=== PATIENT | female | born 1965 | race Caucasian/White ===

== ENCOUNTER 2019-08-17 21:28 | Observation (INO) | payer OTHER, SELFPAY ==
--- NOTE | ~2019-08-17 | US_ITS ---
EXAMINATION: US carotid duplex BI DATE: 08/18/2019 11:56 INDICATION: Right facial weakness. TECHNIQUE: Grayscale, color Doppler, and pulsed Doppler images of the cervical carotid arteries were obtained. The degree of vessel stenosis is placed in one of the following categories: normal, <50%, 5 0-69%, >=70% but less than near-occlusion, near-occlusion, or total occlusion. Note that percent sten osis relative to normal distal artery lumen diameter is indirectly measured from velocity measurement s as described by Carter, et al. Radiology 2003; 229:340-346. COMPARISON: Thyroid ultrasound 12/01/2017 FINDINGS: In the left thyroid lobe, there is a 2.5 cm mixed solid and cystic, hypoechoic, wider-than- tall nodule with ill-defined margin without echogenic foci (TI-RADS TR3). RIGHT: The right common carotid artery (CCA) peak systolic velocity (PSV) is 104 cm/s. The right internal ca rotid artery (ICA) PSV is 116 cm/s. The right ICA end-diastolic velocity (EDV) is 29 cm/s. The right ICA/CCA PSV ratio is 1.1. Grayscale and color Doppler images yield an estimate of 0% diameter reducti on from plaque in the ICA. There is antegrade flow in the right vertebral artery. LEFT: The left CCA PSV is 130 cm/s. The left ICA PSV is 110 cm/s. The left ICA EDV is 23 cm/s. The left ICA /CCA PSV ratio is 0.8. Grayscale and color Doppler images yield an estimate of 0% diameter reduction from plaque in the ICA. There is antegrade flow in the left vertebral artery. IMPRESSION: 1. Normal internal carotid arteries. 2. 2.5 cm left thyroid nodule, increased from 2.2 cm on 12/01/2017. Ultrasound-guided fine-needle aspi ration is recommended if this has not previously been performed. Reviewed, dictated and finalized at location A. IMPRESSION: 1. Normal internal carotid arteries. 2. 2.5 cm left thyroid nodule, increased from 2.2 cm on 12/01/2017. Ultrasound-g uided fine-needle aspiration is recommended if this has not previously been per formed.
--- NOTE | ~2019-08-17 | CT_ITS ---
EXAMINATION: CT brain wo con EXAM DATE: 08/17/2019 22:55 INDICATION: Right facial TECHNIQUE: Spiral CT of the head was performed without contrast. Axial, coronal and sagittal images were reviewed. The dose-length product (DLP) for this examination was 605.33 mGy-cm. The exposure w as tailored according to patient size, and iterative reconstruction (ASIR) was used as additional dos e reduction technique. There is no prior study for comparison. FINDINGS: There is no acute intraparenchymal hemorrhage. No evidence of intraparenchymal brain mass lesion. No evidence of acute infarction. There is no mass effect or midline shift. The ventricles are normal in size. There are no extra-axial collections. There are no acute calvarial fractures. T he orbits are unremarkable. Soft tissue is unremarkable. The visualized sinuses and mastoid air favio ls are well aerated. IMPRESSION: 1. No acute intracranial findings. Reviewed, dictated and finalized at location A.
--- NOTE | ~2019-08-17 | XR_ITS ---
EXAMINATION: XR chest 2V EXAM DATE: 08/17/2019 23:01 INDICATION: Headache. Asthma. Weakness. TECHNIQUE: Frontal and lateral projections of the chest obtained and reviewed. There is no prior levi dy for comparison. FINDINGS: Multilead pacemaker. Rounded cardiac silhouette within normal size limits. No confluent co nsolidation, pneumothorax or pleural effusion suspected. There are no osseous abnormalities identifie d. IMPRESSION: No acute cardiopulmonary findings. Reviewed, dictated and finalized at location A.
[2019-08-17 21:26] VITALS: BP 136/76; PULSE 107; RESP 12; TEMP 36.4; O2SAT 100
[2019-08-17 21:37] VITALS: PULSE 104
--- NOTE | 2019-08-17 21:42 | ECG_ITS ---
Measurements Intervals [place] Rate: 103 P: 38 [place]: 148 QRS: 55 QRSD: 125 T: -17 QT: 354 QTc: 464 Interpretive Statements ELECTRONIC VENTRICULAR PACEMAKER FREQUENT VENTRICULAR PREMATURE COMPLEXES UNDERLYING ATRIAL FLUTTER/TACHYCARDIA NO FURTHER INTERPRETATION IS POSSIBLE ABNORMAL ECG Electronically Signed On 08-18-2019 7:08:23 CDT by Sam Islas D.O.
[2019-08-17 21:52] LABS: Glucose Point of Care 133 (65-105)
--- NOTE | 2019-08-17 22:05 | ED.NEUROSD ---
HPI - Neuro Symptoms/Deficit General Chief Complaint: Unspecified Stated Complaint: GEN WEAKNESS Time Seen by Provider: 08/17/19 21:51 Source: patient, family (pt's ) and RN notes reviewed Mode of arrival: EMS Limitations: no limitations History of Present Illness HPI Narrative: Pt is a 53 y/o female with a Hx of cardiomyopathy and pacemaker, who presents to the ED via EMS with c/o possible CVA. She notes that she also has a Hx of SVT and two cardiac ablations. According to the pt's , she began having slurred speech, rt sided facial droop, and difficulty using her lt hand around 21:00 this evening. Pt states that these symptoms soon resolved, but notes that she has been intermittently confused ever since. She states that her brain feels foggy. Pt notes that she is currently prescribed ASA, but states that she hasn't taken the medication today. She currently reports anxiety, but denies any changes in vision, changes in hearing, or numbness/tingling. Onset (ago): minute(s) (50) Time: 21:00 Timing confirmed by: spouse Location: speech, right face and left arm On Anticoagulants: Yes Associated symptoms: confusion and other (slurred speech (resolved); rt sided facial droop (resolved); lt hand weakness (resolved); anxiety) Related Data Home Medications Medication Instructions Recorded Confirmed amitriptyline 100 mg PO HS 08/18/19 08/18/19 aspirin 325 mg PO DAILY 08/18/19 08/18/19 candesartan 4 mg PO DAILY 08/18/19 08/18/19 digoxin 125 mcg PO DAILY 08/18/19 08/18/19 dofetilide 125 mcg PO Q12H 08/18/19 08/18/19 furosemide 80 mg PO DAILY 08/18/19 08/18/19 levothyroxine 50 mcg PO DAILY 08/18/19 08/18/19 lorazepam 1 mg PO Q8H PRN 08/18/19 08/18/19 metoprolol tartrate 25 mg PO BID 08/18/19 08/18/19 omeprazole 40 mg PO DAILY 08/18/19 08/18/19 potassium chloride 10 meq PO DAILY 08/18/19 08/18/19 spironolactone 50 mg PO DAILY 08/18/19 08/18/19 tramadol-acetaminophen 1 tablet PO Q4H PRN 08/18/19 08/18/19 zolpidem 5 mg PO HS PRN 08/18/19 08/18/19 Allergies Allergy/AdvReac Type Severity Reaction Status Date / Time Penicillins Allergy Unknown Rash Verified 08/17/19 21:38 Review of Systems Review of Systems: All systems reviewed & are unremarkable except as noted in HPI and below Eyes: Eyes: Denies change in vision ENT: Denies other (change in hearing) Neurologic: Reports Abnormal speech present (slurred speech (resolved)), Reports confusion, Reports focal weakness (lt hand weakness (resolved)), Denies numbness, Denies tingling and Reports other (rt sided facial droop (resolved)) Psychiatric: Psychiatric: Reports anxiety PMFSH Past Medical History Medical History (Updated 08/18/19 @ 05:08 by Lalo Philip MD) Anxiety Hypothyroidism Migraines Pacemaker cardiomyopathy SVT (supraventricular tachycardia) Thyroid nodule Surgical History Surgical History History of cardiac radiofrequency ablation History of thoracic surgery Social History Social History Smoking status: Never smoker Alcohol intake: never Substance use: never Agree to blood products: Yes Exam Narrative: Exam Narrative: GENERAL: Well-appearing, well-nourished, and in no acute distress. HEAD: Normocephalic, atraumatic. EYES: PERRL and EOMI. ENT: Mucous membranes moist. CHEST: Clear to auscultation. No respiratory distress. HEART: Regular rate and rhythm. No murmur heard. Normal peripheral pulses. ABDOMEN: Soft, nontender, nondistended. EXTREMITIES: Normal range of motion. No edema. SKIN: Warm, dry, no rash. NEURO: No focal deficits. See NIHSS Alert and oriented x3. PSYCH: Normal mood and affect. Course Consultations Consultation #1: Discussed case with pt's cardiac hospital administrator, Dr. Alexander. Says not to change medications. He will follow-up as outpatient in regards to the arrhythmia noted on the pacemaker. Having her e
[2019-08-17 22:32] VITALS: BP 117/83; PULSE 99; RESP 12; O2SAT 98
[2019-08-17] MEDS: LORAZEPAM INJ 2 MG/ML VIAL 1 MG IV PUSH (22:36)
[2019-08-17 22:51] LABS: Basophils Absolute Auto 0.1 K/mm3 (0.0-0.1); Basophils Percent Auto 0.7 % (0.2-1.2); Eosinophils Absolute Auto 0.2 K/mm3 (0-0.3); Hematocrit 37.9 % (37.0-47.0); Hemoglobin 12.4 g/dL (12.0-15.0); Immature Granulocyte Absolute 0.03 K/mm3 (0.00-0.031); Immature Granulocyte Percent A 0.4 % (0-0.5); Lymphocytes Absolute Auto 1.47 K/mm3 (0.9-3.2); Lymphocytes Percent Auto 18.1 % (18.3-44.2); Mean Corpuscular HGB Conc 32.7 g/dl (32-36); Mean Corpuscular Hemoglobin 30.2 pg (26-34); Mean Corpuscular Volume 92.4 fl (80-100); Mean Platelet Volume 11.1 fl (7.4-10.4); Monocytes Absolute Auto 0.5 K/mm3 (0.1-0.6); Monocytes Percent Auto 6.2 % (2.6-8.5); Neutrophils Absolute Auto 5.9 K/mm3 (1.3-6.7); Neutrophils Percent Auto 72.6 % (45.5-73.1); Platelet Count Result 226 k/mm3 (150-375); Red Cell Distribution Width 12.7 % (11.5-14.5); White Blood Count 8.1 K/mm3 (4.5-10.0)
[2019-08-17 22:52] LABS: Add Urine Microscopic? NO; Appearance Urine Clear (Clear); Bilirubin Urine Negative (Negative); Blood Urine Negative (Negative); Color Urine Straw (Yellow); Glucose Urine UA Negative (Negative); Ketones Urine Negative (Negative); Leukocyte Esterase Ur Negative LEU/UL (Negative); Nitrate Urine Negative (Negative); Protein Urine Negative (Negative); Specific Grav Ur 1.009 (1.001-1.035); Urobilinogen Urine Negative mg/dL (<2.0)
[2019-08-17 22:58] LABS: INR 0.9; Prothrombin Time 12.2 Seconds (11.1-14.7)
[2019-08-17 22:59] LABS: Partial Thromboplastin Time 25.9 SECONDS (22.3-36.8)
--- NOTE | 2019-08-17 23:00 | PC.NURSE ---
interrogated pt's pacemaker
[2019-08-17 23:01] LABS: Blood Urea Nitrogen 17 mg/dL (7-17); Calcium 9.6 mg/dL (8.4-10.2); Carbon Dioxide 26 mmol/L (22-30); Chloride 104 mmol/L (98-107); Estimated Glomerular Filt Rate > 60; Glucose 105 mg/dL (65-105); Potassium 3.9 mmol/L (3.4-5.0); Sodium 138 mmol/L (137-145)
[2019-08-17 23:11] LABS: Troponin I < 0.012 ng/mL (0.000-0.034)
[2019-08-18] VITALS (16 sets, daily range): BP systolic 96–122; BP diastolic 45–85; PULSE 76–90; RESP 12–20; TEMP 36.6–36.8; O2SAT 97–100; BMI 35.9
--- NOTE | 2019-08-18 00:27 | PC.NURSE ---
called [facility] at [phone] in regards to interrogation
--- NOTE | 2019-08-18 00:31 | PC.NURSE ---
evelin is to call back in ten minutes if she does not receive a partial signal from interrogator
--- NOTE | 2019-08-18 00:43 | PC.NURSE ---
pacemaker interrogation transmitted
--- NOTE | 2019-08-18 00:45 | PC.NURSE ---
Tyrel called to confirm transmission of interrogation
--- NOTE | 2019-08-18 00:49 | PC.NURSE ---
to receive a fax in half an hour
--- NOTE | 2019-08-18 03:10 | ADMGEN ---
This patient, Sophy Salazar, was admitted to IMU Room 212-01. Patient/family oriented to hospital policies and general routines including ID bracelet, bed and alarms, visiting hours, pain management, procedures, bathroom and other care routines, personal items, smoking policy, room service/diet, and visiting hours. Valuables list has been completed. Information on how to activate the Rapid Response Team has been discussed. Patient/Family are encouraged to report perceived risks to care and to ask questions if they do not understand what they are told or what they should do.
[2019-08-18] MEDS: ACETAMINOPHEN 325 MG TABLET 650 MG PO ×2 (03:39→09:10)
[2019-08-18] MEDS: CANDESARTAN CILEXETIL 4 MG TABLET PO (09:01)
[2019-08-18] MEDS: ASPIRIN 325 MG TABLET PO (09:01)
[2019-08-18] MEDS: LEVOTHYROXINE SODIUM 50 MCG TABLET PO (09:01)
[2019-08-18] MEDS: METOPROLOL TARTRATE 25 MG TABLET PO (09:02)
[2019-08-18] MEDS: DIGOXIN TAB 125 MCG TABLET PO (09:02)
--- NOTE | 2019-08-18 09:50 | PM.IMHP ---
H&P: HPI History of Present Illness Chief complaint: svt stroke like sympoms Narrative: Date and Time of Service of History & Physical: August 18, 2019 at 9:25 a.m.. Date and Time of Placement in Observation Order: August 18, 2019 at 2:13 a.m.. Chief Complaint: Confusion, slurred speech, right facial droop. History of Present Illness: Sophy Salazar is a 53 year old female with known history of cardiomyopathy with most recent ejection fraction 20% with pacemaker/defibrillator placement, migraine headaches, history of SVT status post ablation, hypothyroidism and anxiety presented to the emergency room by EMS yesterday with an episode of confusion, slurred speech and right facial droop. Patient reports she does not recall all the events but was told of them by her and daughter. Patient does report remembering feeling ?weird? and placing her right hand over her head. She does note having a right-sided migraine type headache yesterday with pressure behind her eyes. She does have a history of migraine headaches which tend to be more on the left. subsequently noticed she appeared confused. She thought she was speaking clearly but reports speech was slurred and he noticed a right facial droop. Patient believes symptoms lasted approximately 10 minutes and total were resolving by the time EMS arrived. Patient does now still have vision that is ?not quite sharp? and some left foot tingling but does have history of tingling with migraine headaches. On evaluation in emergency room, CT brain was negative. No other acute findings. I emergency room physician did speak with her dispatcher motor vehicle regarding arrhythmia noted on pacemaker with recommendation for no change in cardiac medications. Primary physician did request placement in observation for neurologic evaluation. Neurology consulted from the emergency room. Patient does report no significant issues with swallowing or speech this morning. Review of Systems Review of Systems: All systems reviewed & are unremarkable except as noted in HPI and below Constitutional: Constitutional: Denies chills and Denies fever(s) Eyes: Eyes: Denies blurry vision and Denies diplopia ENT: Reports Normal hearing present, Denies dysphagia, Denies nasal congestion and Denies nasal discharge Cardiovascular: Cardiovascular: Denies chest pain and Denies palpitations Respiratory: Respiratory: Denies cough and Denies dyspnea Gastrointestinal: Gastrointestinal: Denies abdominal pain, Denies nausea and Denies vomiting Genitourinary: Genitourinary: Reports no additional female genitourinary complaints Musculoskeletal: Musculoskeletal: Reports no additional musculoskeletal complaints Integumentary/Breasts: Skin/Breast: Denies rash Neurologic: Denies Abnormal speech present, Denies abnormal gait, Denies vertigo, Reports headache(s) and Reports numbness (Tingling left foot) Psychiatric: Psychiatric: Denies anxiety, Denies confusion and Denies depression Endocrine: Endocrine: Reports no additional endocrine complaints Hematologic/Lymphatic: Hematologic/Lymphatic: Reports no additional hematologic/lymphatic complaints Allergic/Immunologic: Allergic/Immunologic: Reports no additional allergic/immunologic complaints [facility] Past Medical History Medical History (Updated 08/18/19 @ 10:09 by Elda Garcia MD) Anxiety Hypothyroidism Migraines Pacemaker cardiomyopathy SVT (supraventricular tachycardia) Thyroid nodule Surgical History Surgical History History of cardiac radiofrequency ablation History of thoracic surgery History of tonsillectomy Family History Family History Father Hypertension Cancer Heart disease Mother Hypertension Cancer Sibling Hypertension Social History Social History (Reviewed 08/18/19 @ 10:03 by Elda Retana
--- NOTE | 2019-08-18 10:21 | PHAR ---
Addendum entered by Jazmine Nava [facility] 08/18/19 10:23: DOSE IS 125 MCG (0.125MG) 1 CAPSULE Q12H Original Note: 08/18/19 HOME MED VERIFIED DOFETILIDE 125 MG CAPSULE 1 Q12H
--- NOTE | 2019-08-18 12:20 | CONS_ITS ---
DATE OF CONSULTATION: HISTORY: This 53 years old right-handed female has been admitted to [facility] through the emergency room with a complaint of generalized weakness with slurred speech, right-sided facial droop, difficulties in using her left hand around 2100 in the evening, but with subsequent resolution of all the symptomatology though she had been intermittently confused ever since and brain has been feeling foggy. She does have ongoing history of anxiety in addition to a history of cardiomyopathy with pacemaker in and she obviously cannot have the MRI. MEDICATIONS: At the time of visit to the emergency room, she is taking multiple medications, which particularly involved 1. Amitriptyline 100 mg at night. 2. Aspirin 325 mg daily. 3. Candesartan 4 mg daily. 4. Digoxin 125 mcg daily. 5. Dofetilide 125 mcg daily. 6. Furosemide 80 mg daily. 7. Levothyroxine 50 mcg daily. 8. Lorazepam 1 mg q.8 hours p.r.n. 9. Metoprolol 25 mg twice a day. 10. Omeprazole 40 mg daily. 11. Potassium chloride 10 mEq daily. 12. Spironolactone 50 mg daily. 13. Tramadol 1 tab q.4 hours p.r.n. 14. Zolpidem 5 mg at bedtime p.r.n. ALLERGIES: SHE IS REPORTEDLY ALLERGIC TO PENICILLIN. PAST MEDICAL HISTORY: In addition, in the past, she has been diagnosed to have the ongoing history of 1. Anxiety. 2. Hypothyroidism. 3. Migraine. 4. cardiomyopathy with supraventricular tachycardia. 5. Thyroid nodule. PAST SURGICAL HISTORY: She has undergone cardio-radiofrequency ablation and thoracic surgery as well. PHYSICAL EXAMINATION: GENERAL: Today, she is awake, alert, and cooperative, in no obvious acute distress, but does have a low volume of the voice. The speech is not dysphasic, not dysarthric, and not dystonic. HEENT: Head normocephalic with no cranial bruit. Ear, nose, throat examination normal. NECK: Supple with no cervical bruit. No thyromegaly or lymphadenopathy. HEART: Regular. LUNGS: Clear. ABDOMEN: Soft. NEUROLOGICAL: She has normal mental status. Normal speech. Pupils round and regular. [place] of vision full. Extraocular movements full. Face symmetrical. Tongue midline. Motor examination revealed her to have no drift of 1 side or other side. Tone normal. Reflexes sluggish, but symmetrical. Plantars downgoing. There is no evidence of gross sensory or cerebellar deficit. LABORATORY DATA: Evaluation up until now included normal CBC, normal BMP. Negative CT scan of the head and as mentioned before MRI cannot be done. Considering her normal neurological examination, one can consider the possibility of TIA versus the invisibility of the stroke with a CT scan, I advised her that she can always be discharged at this particular time by predicting we can repeat the CT scan of the head in 5 to 7 days just to document whether she has had any small stroke or not. In the meantime, she can continue the medication as such, which particularly involved the aspirin 325 mg daily. We can always obtain the Doppler study of the carotid. Thank you very much for asking me to evaluate this patient. ANNA OZUNA M.D. ESTHETICIAN PERMANENT MAKEUP ARTIST ESTHETICIAN PERMANENT MAKEUP ARTIST D I MT: Jaleel
--- NOTE | 2019-08-18 18:55 | PM.DS ---
DS: Diagnosis Admitting Diagnosis Admitting Diagnosis: Unspecified symptoms and signs involving the nervous system Discharge Diagnosis (1) Stroke-like symptom: Code(s): R29.90 - Unspecified symptoms and signs involving the nervous system Status: Acute (2) Migraines: Qualifiers: Migraine type: unspecified Status migrainosus presence: without status migrainosus Intractability: not intractable Qualified Code(s): G43.909 - Migraine, unspecified, not intractable, without status migrainosus Code(s): G43.909 - Migraine, unspecified, not intractable, without status migrainosus Status: Acute (3) SVT (supraventricular tachycardia): Code(s): I47.1 - Supraventricular tachycardia Status: Acute (4) cardiomyopathy: Code(s): 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 History of Present Illness: Patient is a 53 year old female with known history of cardiomyopathy with most recent ejection fraction 20% with pacemaker/defibrillator placement, migraine headaches, history of SVT status post ablation, hypothyroidism and anxiety presented to the emergency room by EMS yesterday with an episode of confusion, slurred speech and right facial droop. Patient reports she does not recall all the events but was told of them by her and daughter. Patient does report remembering feeling ?weird? and placing her right hand over her head. She does note having a right-sided migraine type headache yesterday with pressure behind her eyes. She has a history of migraine headaches which tend to be more on the left. subsequently noticed she appeared confused with slurred speech and right facial droop. Patient believes symptoms lasted approximately 10 minutes in total and were resolving by the time EMS arrived. Patient does now still have vision that is ?not quite sharp? and some left foot tingling but does have history of tingling with migraine headaches. On evaluation in emergency room, CT brain was negative. No other acute findings. The emergency room physician did speak with her barrel ribs solderer regarding arrhythmia noted on pacemaker with recommendation for no change in cardiac medications. Primary physician did request placement in observation for neurologic evaluation. Neurology consulted from the emergency room. Course in Hospital: Patient was admitted to the intermediate care unit where she remained for the duration of her stay. Initial stroke-like symptoms did resolve by the time of admitting history and physical. Patient was tired but had no facial droop or slurred speech. She had no difficulty swallowing. She was seen in consultation by Neurology with consideration of TIA versus CVA as well as anxiety adding to her symptoms. She did have carotid Dopplers done with no significant internal carotid artery stenosis. MRI brain was not done patient having known pacemaker/defibrillator in place. Discussion was held with patient regarding repeat outpatient CT scan of the brain in 5-7 days for further evaluation. She was monitored throughout the day with no new neurological symptoms. She was also monitored on telemetry with heart rate remaining controlled. Interrogation of her pacemaker in the emergency room did show an episode of SVT for which her barrel ribs solderer was already notified while still in the emergency room. No significant irregular rhythms were noted while on telemetry. She was
== END 2019-08-18 17:25 | disposition home or self-care (01) ==
LOC: ANHED 21:56 → ANHIMU 08-18 03:03
PROVIDERS: Admitting Provider Internal Medicine; Emergency Provider Emergency Medicine; PCP Nurse Practitioner Family; Visit Provider Hospitalist
DX: R29.818 Other symptoms and signs involving the nervous system (principal); R29.810 Facial weakness; R41.0 Disorientation, unspecified; R47.81 Slurred speech; R53.1 Weakness; G43.909 Migraine, unspecified, not intractable, without status migrainosus; I47.1 Supraventricular tachycardia; I42.8 Other cardiomyopathies; O94 Sequelae of complication of pregnancy, childbirth, and the puerperium; E03.9 Hypothyroidism, unspecified; E04.1 Nontoxic single thyroid nodule; F41.9 Anxiety disorder, unspecified; Z79.82 Long term (current) use of aspirin; Z79.899 Other long term (current) drug therapy; Z88.0 Allergy status to penicillin; Z95.810 Presence of automatic (implantable) cardiac defibrillator
CPT/HCPCS: 36415; 70450; 71046; 80048; 81003; 82948; 84484; 85025; 85610; 85730; 93005; 93880; 96374; 99285; A9270; G0378; J2060

== ENCOUNTER 2019-08-24 15:14 | Outpatient (CLI) | payer OTHER, SELFPAY ==
--- NOTE | ~2019-08-24 | CT_ITS ---
EXAMINATION: CT brain wo/w con DATE: 08/24/2019 16:12 INDICATION: Stroke-like symptoms. Right facial and left sided weakness TECHNIQUE: Computed tomography (CT) of the head was performed without intravenous contrast. The mA wa s adjusted according to patient size. Iterative reconstruction technique was employed. Exam dose: 10 59.33 mGy-cm total exam DLP. COMPARISON: 08/17/[address] brain FINDINGS: No intracranial mass lesion or hemorrhage or cerebrovascular accident. Probable arachnoid cyst in the anterior left middle cranial fossa, stable since 08/17/2019. No midline shift or mass effect. Mild carotid siphon internal carotid artery calcification No subdural or epidural hematoma. Normal ventricular size. No fracture or bone destruction of the cranial vault. Included paranasal sinuses and mastoid air cells are normally developed and aerated. IMPRESSION: No acute intracranial finding or significant change since 08/17/2019 Reviewed, dictated and finalized at Location [facility]. Reviewed, dictated and finalized at location B.
== END 2019-08-24 15:15 | disposition home or self-care (01) ==
PROVIDERS: PCP Nurse Practitioner Family; Visit Provider Nurse Practitioner Family
DX: R29.90 Unspecified symptoms and signs involving the nervous system (principal)
CPT/HCPCS: 70470; Q9967

== ENCOUNTER 2020-05-11 08:41 | Outpatient (NON) | payer OTHER, SELFPAY ==
[2020-05-11 23:24] LABS: SARS-CoV-2 RNA PCR Negative
== END 2020-05-11 08:42 ==
LOC: ANHCOVIDDT 08:43
PROVIDERS: PCP Nurse Practitioner Family; Visit Provider Nurse Practitioner Family
DX: Z20.828 Contact with and (suspected) exposure to other viral communicable diseases (principal); R09.81 Nasal congestion; R52 Pain, unspecified
CPT/HCPCS: 87635; C9803; U0003

== ENCOUNTER 2020-11-28 13:07 | Outpatient (CLI) | payer OTHER, SELFPAY ==
--- NOTE | ~2020-11-28 | CT_ITS ---
EXAMINATION: CT lumbar spine wo con DATE: 11/28/2020 13:40 INDICATION: Peripheral polyneuropathy. TECHNIQUE: Computed tomography (CT) of the lumbar spine was performed without intravenous contrast. A utomated exposure control and iterative reconstruction technique were employed. The dose-length produ ct was 1138.38 mGy-cm. COMPARISON: None FINDINGS: There is 7 degrees dextrocurvature of lumbar spine. Vertebral body heights are normal. Inte rvertebral disc heights are normal. The following disc levels are specifically discussed: L1-L2: The disc does not extend beyond the endplate margin. There is mild bilateral facet joint osteo arthritis. There is no neural foraminal stenosis. There is no central canal stenosis. L2-L3: The disc is mildly bulging. There is mild bilateral facet joint osteoarthritis. There is mild left neural foraminal stenosis. There is no central canal stenosis. L3-L4: The disc is bulging. There is severe right and mild left facet joint osteoarthritis. There is mild bilateral neural foraminal stenosis. There is mild central canal stenosis. L4-L5: The disc is bulging. There is mild bilateral facet joint osteoarthritis. There is mild bilater al neural foraminal stenosis. There is no central canal stenosis. L5-S1: The disc does not extend beyond the endplate margin. There is moderate right and severe left f acet joint osteoarthritis. There is no neural foraminal stenosis. There is no central canal stenosis. IMPRESSION: 1. Mild lumbar spondylosis. Reviewed, dictated and finalized at location A. IMPRESSION: 1. Mild lumbar spondylosis.
== END 2020-11-28 13:08 | disposition home or self-care (01) ==
PROVIDERS: PCP Nurse Practitioner Family; Visit Provider Nurse Practitioner Family
DX: G62.9 Polyneuropathy, unspecified (principal); M51.36 Other intervertebral disc degeneration, lumbar region; M54.42 Lumbago with sciatica, left side; G89.29 Other chronic pain; M47.816 Spondylosis without myelopathy or radiculopathy, lumbar region
CPT/HCPCS: 72131

== ENCOUNTER 2021-10-31 17:43 | Outpatient (CLI) | payer OTHER, SELFPAY ==
--- NOTE | ~2021-10-31 | CT_ITS ---
EXAMINATION: CT abdomen pelvis wo con DATE: 10/31/2021 18:01 INDICATION: pelvic and perineal pain TECHNIQUE: Computed tomography (CT) of the abdomen and pelvis was performed without intravenous contr ast. Automated exposure control and iterative reconstruction technique were employed. The dose-length product was 855.35 mGy-cm. COMPARISON: None FINDINGS: Lower thorax: Bibasilar scar/atelectasis. Incompletely visualized pacemaker leads. Liver: Normal. Biliary/Gallbladder: Gallbladder is normal. No bile duct dilation. Pancreas: No mass or duct dilation. Spleen: Normal. Adrenals:Right adrenal myelolipoma. Kidneys: Irregular somewhat hypodense area in the left midpole. Left lower pole subcentimeter lesion too small to characterize but likely represents a cyst. Multiple simple renal cysts. No renal calcifi cation or hydronephrosis. No significant perinephric stranding. GI tract: No small or large bowel dilation. Normal appendix. Mesentery/Peritoneum: No ascites, mass, or free air. Retroperitoneum: No mass. Pelvis: Pelvic organs are within normal limits. Soft Tissues: Soft tissues and body wall unremarkable. Bones: No acute osseous finding. IMPRESSION: Indeterminate left midpole lesion, may represent an indeterminate mass, renal infarction, or focus of infection. Recommend renal mass protocol MRI or CT with and without contrast for further evaluation. Reviewed, dictated and finalized at location K. IMPRESSION: Indeterminate left midpole lesion, may represent an indeterminate mass, renal i nfarction, or focus of infection. Recommend renal mass protocol MRI or CT with and without contrast for further evaluation.
== END 2021-10-31 17:44 | disposition home or self-care (01) ==
PROVIDERS: PCP Nurse Practitioner Family
DX: R10.2 Pelvic and perineal pain (principal); D17.5 Benign lipomatous neoplasm of intra-abdominal organs
CPT/HCPCS: 74176

== ENCOUNTER → 2021-11-01 14:39 | Outpatient (CLI) | payer OTHER, SELFPAY ==
--- NOTE | ~2021-11-01 | MM_ITS ---
EXAMINATION: MM screening nury BI w elizabeth HISTORY: Screening mammogram TECHNIQUE: Craniocaudal and mediolateral oblique 3-D tomosynthesis images were obtained and synthetic 2-D images were generated. CAD analysis was submitted and interpreted. COMPARISON: 08/26/2018, 03/07/2017 bilateral screening mammogram examinations BREAST PARENCHYMAL COMPOSITION: There are scattered areas of fibroglandular density. FINDINGS: There is no evidence of suspicious mass, calcification, or architectural distortion to sugg est malignancy in either breast. There has been no suspicious interval change. IMPRESSION: 1. No mammographic evidence of malignancy. 2. Recommend routine screening mammography in one year. BI-RADS Category 1: Negative Reviewed, dictated and finalized at location A.
== END ==
PROVIDERS: PCP Nurse Practitioner Family; Visit Provider Obstetrics & Gynecology
DX: Z12.31 Encounter for screening mammogram for malignant neoplasm of breast (principal)
CPT/HCPCS: 77063; 77067

== ENCOUNTER 2021-11-09 09:42 | Outpatient (CLI) | payer OTHER, SELFPAY ==
[2021-11-09 10:16] LABS: Anion Gap 8 mmol/L (8-16); Blood Urea Nitrogen 17 mg/dL (7-17); Calcium 9.4 mg/dL (8.4-10.2); Carbon Dioxide 28 mmol/L (22-30); Chloride 102 mmol/L (98-107); Estimated Glomerular Filt Rate 52; Glucose 148 mg/dL (65-110); Potassium 3.9 mmol/L (3.4-5.0); Sodium 138 mmol/L (137-145)
[2021-11-09 10:57] LABS: Digoxin 0.7 ng/mL (0.8-2.0)
== END 2021-11-09 09:43 | disposition home or self-care (01) ==
LOC: ANHSURGERY 09:47
PROVIDERS: Anesthesiology; PCP Nurse Practitioner Family; Visit Provider Obstetrics & Gynecology
DX: Z01.818 Encounter for other preprocedural examination (principal); T50.2X5A Adverse effect of carbonic-anhydrase inhibitors, benzothiadiazides and other diuretics, initial encounter; I42.9 Cardiomyopathy, unspecified
CPT/HCPCS: 36415; 80048; 80162

== ENCOUNTER 2021-11-14 01:03 | Day surgery (SDC) | payer OTHER, SELFPAY ==
--- NOTE | 2021-11-06 14:19 | SUR.PREOP ---
Report to the Outpatient Waiting Room, entrance under the green pavilion located off [facility], at time 1230 on date 11/14/2021. OR Time: 1430. - You and your visitor will be asked a series of questions to screen for COVID 19 for your protection. - Only one visitor is allowed at this time. - The patient visitor is requested to leave or wait in car when not with patient. - A mask is required within the hospital. Patients may have clear liquids (water, carbonated beverages, clear teas, apple juice) until 3 hours prior to surgery with a maximum of 20 ounces. - NO CLEAR LIQUIDS AFTER 1130 - No food from midnight until time of surgery - Infants may have breast milk until 4 hours before surgery, infant formula 6 hours prior to surgery. - Children will be allowed to drink immediately following surgery. If applicable, please bring a bottle or sippy cup to assist with drinking. Juice, water, soda, and popsicles are readily available. For infants on formula, please bring formula the day of surgery. Pacifiers are allowed. Take the following medications with a SIP of water the morning of surgery: DIGOXIN, DOFETILIDE, LEVOTHYROXINE, LORAZEPAM, TRAMADOL/ACETAMINOPHEN, BRING XOPENEX INHALER WITH YOU DAY OF SURGERY Medications to discontinue per physician SPEAK WITH DR STRONG IN REGARDS TO CONTINUING ASPIRIN Please no make-up, nail upper sorbian, hairspray, perfume, deodorant, or body powder the day of surgery. No jewelry (including any body piercings) or valuables the day of surgery, leave them at home. Please take a shower or bath the night before, or the morning of, surgery with an antibacterial soap. Wear comfortable, loose fitting clothing. Children are encouraged to wear pajamas. - Jewelry must be removed prior to entering the operating room. Rings and piercings that are not removed may be cut off. - The hospital will not accept responsibility for valuables. - Please leave all valuables, including medications, at home the day of surgery. If you are going home after surgery, a licensed pharmacy delivery driver must drive you home. - NO public transportation without another adult. - We recommend that an adult stay with you for 24 hours following discharge. - We also recommend that you do not drive, make important decision, drink alcoholic beverages, or take any drugs that were not prescribed by your health care provider for at least 24 hours after your discharge time. For Pediatric surgeries, we recommend two adults accompany the child home (only one inside the building at this time). Follow any additional instructions given to you from your surgeon. If you or anyone in your household have experienced Covid symptoms in the past week, please notify your surgeon or the nurse liaison at the phone number below for possible testing. Telephone instructions given to SANGEETHA LU and asked if any additional questions and then verbalized understanding. Patient advised to call surgeon office or pre surgery nurse liaison [phone] if any additional questions.
[2021-11-06 14:38] VITALS: BMI 34.8
--- NOTE | 2021-11-14 09:51 | WPDANESEPPF ---
Anes - Initial Pre Proc Eval Procedure: Operation Date: 11/14/21 14:30 Proposed Procedures p Hysteroscopy Dilation and Curettage - Alirio Haile MD Date/Time: 11/14/21 09:51 Surgeon: Alirio Haile MD Pre Op Diagnosis: irregular bleeding, thickened endometrium Patient Data Age: 56 Gender: F Height: 1.57 m Weight: 86.4 kg Allergies Allergy/AdvReac Type Severity Reaction Status Date / Time adhesive Allergy Unknown Redness of Verified 11/06/21 14:36 Skin mushroom Allergy Unknown Hives Verified 11/06/21 14:36 Penicillins Allergy Unknown Rash Verified 11/06/21 14:36 Home Medications Medication Instructions Recorded Confirmed Type amitriptyline 100 mg tablet 100 mg PO HS 08/18/19 11/06/21 History aspirin 325 mg tablet 325 mg PO HS 08/18/19 11/14/21 History digoxin 125 mcg (0.125 mg) tablet 125 mcg PO DAILY 08/18/19 11/14/21 History dofetilide 125 mcg capsule 125 mcg PO Q12H 08/18/19 11/14/21 History furosemide 80 mg tablet 80 mg PO HS 08/18/19 11/06/21 History levothyroxine 50 mcg tablet 50 mcg PO DAILY 08/18/19 11/14/21 History lorazepam 1 mg tablet 1 mg PO Q8H PRN Anxiety 08/18/19 11/06/21 History omeprazole 40 mg capsule,delayed 40 mg PO HS 08/18/19 11/06/21 History release potassium chloride 10 mEq 10 meq PO HS 08/18/19 11/06/21 History tablet,extended release spironolactone 50 mg tablet 50 mg PO HS 08/18/19 11/06/21 History tramadol 37.5 mg-acetaminophen 325 1 tablet PO Q4H PRN Pain 08/18/19 11/06/21 History mg tablet zolpidem 5 mg tablet 5 mg PO HS PRN Sleep 08/18/19 11/06/21 History empagliflozin 10 mg tablet 1 tablet PO DAILY 11/06/21 11/06/21 History (Jardiance) levalbuterol tartrate 45 2 inh inhalation PRN PRN Shortness 11/06/21 11/06/21 History mcg/actuation aerosol inhaler Of Breath metoprolol succinate 50 mg 50 tablet PO HS 11/06/21 11/14/21 History tablet,extended release 24 hr sacubitril 24 mg-valsartan 26 mg 1 tablet PO BID 11/06/21 11/06/21 History tablet (Entresto) ECG: Date of Service: 08/17/19 Procedure(s): CA 12 lead EKG Accession Number(s): [id number] cc: ~ ? Measurements Intervals? [place]? Rate: ? 103? P:? 38 NH: ? 148? QRS:? 55 QRSD: ? 125? T:? -17 QT: ? 354? QTc:? 464? Interpretive Statements ELECTRONIC VENTRICULAR PACEMAKER FREQUENT VENTRICULAR PREMATURE COMPLEXES UNDERLYING ATRIAL FLUTTER/TACHYCARDIA NO FURTHER INTERPRETATION IS POSSIBLE ABNORMAL ECG Electronically Signed On 08-18-2019 7:08:23 CDT by Sam Islas D.O. Patient hx anesthesia problems: none Family hx anesthesia problems: none Results Review: All pre-operative results and documents have been reviewed as part of the pre-operative evaluation. [facility] Past Medical History Medical History (Updated 11/14/21 @ 09:53 by Jos Carrillo MD) Anxiety Asthma Atrial fibrillation Cardiomyopathy CHF (congestive heart failure) Hypothyroidism Migraines Obesity Pacemaker pm/aicd cardiomyopathy SVT (supraventricular tachycardia) Thyroid nodule Surgical History Surgical History History of cardiac radiofrequency ablation History of thoracic surgery History of tonsillectomy Family History Family History Father Hypertension Cancer Heart disease Mother Hypertension Cancer Sibling Hypertension Social History Social History Social History: Patient is . She is a full code. She has never smoked. No alcohol use. 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 Smoking status: Never smoker Sub
[2021-11-14 12:40] VITALS: BMI 36.3
[2021-11-14] MEDS: ACETAMINOPHEN 500 MG TABLET 1000 MG PO (12:52)
[2021-11-14 12:59] VITALS: BP 108/59; PULSE 95; RESP 18; TEMP 36.4; O2SAT 99
[2021-11-14] MEDS: LACTATED RINGERS 1,000 ML 30 ML IV CONT (13:10)
--- NOTE | 2021-11-14 13:34 | PM.IMHP ---
H&P: HPI History of Present Illness Date/Time: 11/14/21 13:34 Chief Complaint: Bleeding Narrative: 55 y/o who had some light vaginal bleeding. Ultrasound exam shows a thickened, irregular endometrial complex. A Pap last fall was negative. Review of Systems Review of Systems: All systems reviewed & are unremarkable except as noted in HPI and below PMFSH Past Medical History Medical History Anxiety Asthma Atrial fibrillation Cardiomyopathy CHF (congestive heart failure) Hypothyroidism Migraines Obesity Pacemaker pm/aicd cardiomyopathy SVT (supraventricular tachycardia) Thyroid nodule Surgical History Surgical History History of cardiac radiofrequency ablation History of thoracic surgery History of tonsillectomy Family History Family History Father Hypertension Cancer Heart disease Mother Hypertension Cancer Sibling Hypertension Social History Social History Social History: Patient is . She is a full code. She has never smoked. No alcohol use. 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 Gender identity (if verbalized by the patient): Female Spiritual care concerns: No Agree to blood products: Yes Meds Home Medications and Allergies Home Medications Medication Instructions Recorded Confirmed Type amitriptyline 100 mg tablet 100 mg PO HS 08/18/19 11/06/21 History aspirin 325 mg tablet 325 mg PO HS 08/18/19 11/14/21 History digoxin 125 mcg (0.125 mg) tablet 125 mcg PO DAILY 08/18/19 11/14/21 History dofetilide 125 mcg capsule 125 mcg PO Q12H 08/18/19 11/14/21 History furosemide 80 mg tablet 80 mg PO HS 08/18/19 11/06/21 History levothyroxine 50 mcg tablet 50 mcg PO DAILY 08/18/19 11/14/21 History lorazepam 1 mg tablet 1 mg PO Q8H PRN Anxiety 08/18/19 11/06/21 History omeprazole 40 mg capsule,delayed 40 mg PO HS 08/18/19 11/06/21 History release potassium chloride 10 mEq 10 meq PO HS 08/18/19 11/06/21 History tablet,extended release spironolactone 50 mg tablet 50 mg PO HS 08/18/19 11/06/21 History tramadol 37.5 mg-acetaminophen 325 1 tablet PO Q4H PRN Pain 08/18/19 11/06/21 History mg tablet zolpidem 5 mg tablet 5 mg PO HS PRN Sleep 08/18/19 11/06/21 History empagliflozin 10 mg tablet 1 tablet PO DAILY 11/06/21 11/06/21 History (Jardiance) levalbuterol tartrate 45 2 inh inhalation PRN PRN Shortness 11/06/21 11/06/21 History mcg/actuation aerosol inhaler Of Breath metoprolol succinate 50 mg 50 tablet PO HS 11/06/21 11/14/21 History tablet,extended release 24 hr sacubitril 24 mg-valsartan 26 mg 1 tablet PO BID 11/06/21 11/06/21 History tablet (Entresto) Allergies Allergy/AdvReac Type Severity Reaction Status Date / Time adhesive Allergy Unknown Redness of Verified 11/06/21 14:36 Skin mushroom Allergy Unknown Hives Verified 11/06/21 14:36 Penicillins Allergy Unknown Rash Verified 11/06/21 14:36 Vital Signs Vital Signs - 24 hr 11/14/21 12:59 Temperature 36.4 C L Pulse Rate 95 Respiratory Rate 18 Blood Pressure 108/59 L Pulse Oximetry 99 Oxygen Delivery Room Air Exam Const: Orientation/consciousness: patient oriented x3 Other: Well-developed, well-nourished female in no acute distress. Neck: Thyroid: thyroid normal Lymphatic: no lymphadenopathy noted (in neck, axilla or inguinal nodes) Resp: Effort & Inspection: normal respiratory effort Auscultation: clear to auscultation bilaterally Cardio: Rate: regular rate Rhythm: regular rhythm Heart sounds: S1 normal heart sound present and S2 normal heart sound present G
--- NOTE | 2021-11-14 13:38 | WPDHPUPDATE1 ---
History and Physical Update Update Date/Time: 11/14/21 13:38 History and Physical has been reviewed, including an updated exam of the patient. There are NO changes in the patient's condition. Risks, benefits, and alternatives have been discussed and questions answered. Patient agrees to proceed with procedure.
--- NOTE | 2021-11-14 14:15 | P.OP_ITS ---
Procedure Note - Detailed Date of Procedure 11/14/21 Pre-op Diagnosis Menometrorrhagia Abnormal pelvic ultrasound Post-op Diagnosis Same Procedure Performed Hysteroscopy Dilation and sharp curettage Endometrial polypectomy Endometrial ablation Surgeon Alirio Haile MD Anesthesia MAC and Local (1% lidocaine) Findings Endometrial polyp Description of Procedure The patient was taken to the operating room where she was prepared and draped in the usual sterile fashion in the dorsal lithotomy position. The bladder was drained with a red rubber catheter. A sterile speculum was placed into the vagina. The anterior lip of the cervix was grasped with single-tooth tenaculum. Ten mL of 1% lidocaine was administered in a paracervical block. The cervix was then gently dilated using Hegar dilators until an 8 mm dilator could be passed. Hysteroscopy was performed using sterile saline as a distention medium. Findings are as noted above. A polyp forceps was advanced and the apparent endometrial polyp was removed. Sharp curettage was then performed, and en dometrial curettings were collected on a Telfa pad and passed off to be sent to pathology. Finally, the the Shilpa device was advanced and endometrial ablation commenced without difficulty. The device was withdrawn and a second look was taken using the hysteroscope. Excellent coverage of the endometrial cavity was noted. The tenaculum was removed. Hemostasis was excellent. Sponge, lap, needle and instrument counts were correct. The patient was awakened and taken to the recovery room in stable condition. I was present and scrubbed through the entire procedure. Drains No Packing No Pathology Yes (Endometrial curettings) Complications None Condition Stable Disposition PACU
[2021-11-14] MEDS: LIDOCAINE HCL 1% PF 30 ML VIAL 10 ML INFILTRATE (14:53)
--- NOTE | 2021-11-14 15:01 | W.PM.PROC2 ---
Procedure Note - Detailed Date of Procedure 11/14/21 Pre-op Diagnosis Postmenopausal vaginal bleeding Abnormal pelvic ultrasound Post-op Diagnosis Same Procedure Performed Hysteroscopy Endometrial polypectomy Dilation and sharp curettage Surgeon Alirio Haile MD Anesthesia MAC and Local (1% lidocaine) Findings Small endometrial polyp. Both tubal ostia seen. Endometrial tissue otherwise atrophic appearing. Description of Procedure The patient was taken to the operating room where she was prepared and draped in the usual sterile fashion in the dorsal lithotomy position. The bladder was drained with a red rubber catheter. A sterile speculum was placed into the vagina. The anterior lip of the cervix was grasped with single-tooth tenaculum. Ten mL of 1% lidocaine was administered in a paracervical block. The cervix was then gently dilated using Hegar dilators until an 8 mm dilator could be passed. Hysteroscopy was performed using sterile saline as a distention medium. Findings are as noted above. A polyp forceps was advanced and the small polyp was removed. Sharp curettage was then performed, and endometrial curettings were collected on a Telfa pad and passed off to be sent to pathology. Hemostasis was excellent. Sponge, lap, needle and instrument counts were correct. The patient was awakened and taken to the recovery room in stable condition. I was present and scrubbed through the entire procedure. Estimated Blood Loss 5 Drains No Packing No Pathology Yes (Endometrial curettings) Complications None Condition Stable Disposition PACU
[2021-11-14 15:06] VITALS: BP 110/67; PULSE 82; RESP 16; O2SAT 92
[2021-11-14 15:35] VITALS: BP 102/59; PULSE 79; RESP 16; O2SAT 95
[2021-11-14] MEDS: oxyCODONE HCL (*CRX) 5 MG TAB IR PO (15:42)
[2021-11-14 16:02] VITALS: BP 92/45; PULSE 75; RESP 16
== END 2021-11-14 16:03 | disposition home or self-care (01) ==
PROVIDERS: PCP Nurse Practitioner Family; Visit Provider Obstetrics & Gynecology
PROC: 0U5B8ZZ Destruction of Endometrium, Via Natural or Artificial Opening Endoscopic (ICD-10-PCS; CPT 58563; principal; 2021-11-14 14:30)
DX: N95.0 Postmenopausal bleeding (principal); N84.0 Polyp of corpus uteri; I48.91 Unspecified atrial fibrillation; I42.9 Cardiomyopathy, unspecified; I50.9 Heart failure, unspecified; E03.9 Hypothyroidism, unspecified; I47.1 Supraventricular tachycardia; Z95.810 Presence of automatic (implantable) cardiac defibrillator; J45.909 Unspecified asthma, uncomplicated; F41.9 Anxiety disorder, unspecified; E04.1 Nontoxic single thyroid nodule; E66.9 Obesity, unspecified; Z68.36 Body mass index [BMI] 36.0-36.9, adult; Z79.82 Long term (current) use of aspirin; Z79.51 Long term (current) use of inhaled steroids; Z79.84 Long term (current) use of oral hypoglycemic drugs
CPT/HCPCS: 58558; 88305; A9270; J2250; J2405; J2704; J3010; J7120

== ENCOUNTER 2022-08-30 16:20 | Outpatient (CLI) | payer OTHER, SELFPAY ==
--- NOTE | ~2022-08-30 | CT_ITS ---
EXAMINATION: CT cervical spine wo con DATE: 08/30/2022 16:52 INDICATION: Peripheral polyneuropathy. TECHNIQUE: Computed tomography (CT) of the cervical spine was performed without intravenous contrast. Automated exposure control and iterative reconstruction technique were employed. The dose-length pro duct was 308.99 mGy-cm. COMPARISON: Thyroid ultrasound 12/01/2017 FINDINGS: There is a 2.4 cm nodule in left thyroid lobe, stable from 12/01/2017, likely benign. There is hypolordosis of cervical spine. Vertebral body heights are normal. There is mildly decreased disc height at C4-C5 and C6-C7. The following disc levels are specifically discussed: C2-C3: There is no uncovertebral joint osteoarthritis. There is mild bilateral facet joint osteoarthr itis. There is no neural foraminal stenosis. There is no central canal stenosis. C3-C4: There is mild right uncovertebral joint osteoarthritis. There is mild bilateral facet joint os teoarthritis. There is no neural foraminal stenosis. There is no central canal stenosis. C4-C5: There is no uncovertebral joint osteoarthritis. There is mild left facet joint osteoarthritis. There is no neural foraminal stenosis. There is mild central canal stenosis. C5-C6: There is no uncovertebral joint osteoarthritis. There is no facet joint osteoarthritis. There is no neural foraminal stenosis. There is no central canal stenosis. C6-C7: There is no uncovertebral joint osteoarthritis. There is moderate bilateral facet joint osteoa rthritis. There is mild left neural foraminal stenosis. There is mild central canal stenosis. C7-T1: There is no uncovertebral joint osteoarthritis. There is mild right and severe left facet join t osteoarthritis. There is mild left neural foraminal stenosis. There is no central canal stenosis. IMPRESSION: 1. Mild cervical spondylosis. Reviewed, dictated and finalized at location A.
== END 2022-08-30 16:21 | disposition home or self-care (01) ==
PROVIDERS: PCP Nurse Practitioner Family; Visit Provider Nurse Practitioner Family
DX: G62.9 Polyneuropathy, unspecified (principal); R20.0 Anesthesia of skin; M54.12 Radiculopathy, cervical region; G89.29 Other chronic pain; M50.30 Other cervical disc degeneration, unspecified cervical region; M43.02 Spondylolysis, cervical region
CPT/HCPCS: 72125

== ENCOUNTER 2024-07-10 15:20 | Emergency (ER) | payer OTHER, SELFPAY ==
--- NOTE | ~2024-07-10 | CT_ITS ---
EXAMINATION: CT abdomen pelvis w con DATE: 07/10/2024 16:26 INDICATION: ABDOMINAL PAIN, POSSIBLE CONSTIPATION TECHNIQUE: Computed tomography (CT) of the abdomen and pelvis was performed with 100 mL Omnipaque-350 intravenous contrast. Automated exposure control and iterative reconstruction technique were employe d. The dose-length product was 761.20 mGy-cm. COMPARISON: 10/31/2021. FINDINGS: Lower thorax: Minimal dependent scar/atelectasis. Pacer/AICD leads terminating in good position. Liver: Normal. Biliary/Gallbladder: Gallbladder is normal. No bile duct dilation. Pancreas: No mass or duct dilation. Spleen: Normal. Adrenals:Right adrenal myelolipoma. Kidneys: No suspicious mass, obstructing stone, or hydronephrosis. 2 small adjacent indeterminate den sity left midpole lesions measuring 1.5 and 2.0 cm Multiple bilateral simple cysts and hypodensities that are too small to characterize but also likely represent cysts. GI tract: Mild distal esophageal and gastric wall edema. No small or large bowel dilation. Normal cecelia endix. Mesentery/Peritoneum: No ascites, mass, or free air. Retroperitoneum: No mass. Pelvis: Pelvic organs are within normal limits. Soft Tissues: Soft tissues and body wall unremarkable. Bones: No acute osseous finding. IMPRESSION: Mild esophagitis/gastritis. Indeterminate left midpole lesions, recommend nonemergent but timely MR without and with contrast for further characterization. Reviewed, dictated and finalized at location K. NG INSPECTOR
[2024-07-10 15:23] VITALS: BP 118/67; PULSE 106; RESP 16; TEMP 36.6; O2SAT 98
--- OUTSIDE RECORDS SUMMARY | 2024-07-10 15:23 | XMS_ITS | Encounter Summary ---
Author Organization [facility] Address [address] [place] [address]. [place], [place] [id number] [place] [address] Care Team Providers Care Inductor Tester Name Role Phone Sandy Hammond Primary Care Provider [phone] Encounter Details Date Type Department Care Team (Late st Contact Info) Description 01/10/2020 [facility] Message Enc [facility] Family & Internal Medicine [place] [id number] [place] [address] Sandy Hammond FNP [address] [place] [address] Medication Questions Social History Tobacco Use Types Packs/Day Years Used Date Smoking Tobacco: Never Smokeless Tobacco: Never Alcohol Use Standard Drinks/Week Comments Yes 0 (1 standard drink = 0.6 oz pur e alcohol) RARELY AUDIT-C Answer Date Recorded Frequency of Alcohol Consumption Monthly or less 09/25/2018 Average Number of Drinks Not on file 019 Frequency of Binge Drinking Not on file 09/07 PHQ-2 Answer Date Recorded PHQ-2 Score 1 09/25/2018 Comments No Sex and Gender Information Value Date Recorded Sex Assigned at Female 12/30/2023 1:13 PM CDT Legal Sex Female 1:59 PM CDT Gender Identity Female 12/30/2023 1:13 PM CDT Sexual Orientation Not on file documented as of this encounter Progress Notes * RANULFO De Anda - 01/10/2020 4:20 PM CDT She does need tested. Mack Can we call her please? documented in this encounter Plan of Treatment Upcoming Encounters Date Type Department Care Team (Late st Contact Info) Description 07/12/2024 1:00 PM ELECTROMECHANICAL ASSEMBLER Laboratory Only [facility] Family & Internal Medicine - [place] [address] [place] [address] Sandy Hammond FNP [address] [place] [address] 08/23/2024 3:00 PM CDT Office Visit [facility] Multispecialty Care - [facility] [address] [facility], [address] [place] [address] Macario Han MD [address] [place] [address] documented as of this encounter Visit Diagnoses Not on filedocumented in this encounter Additional Health Concerns Infection Onset Date Last Indicated Resolved Time COVID-19 Rule Out 01/11/2020 01/20/2020 03/20/2020 12:33 AM CDT COVID-19 Rule Out 05/08/2020 05/11/2020 05/19/2020 3:16 PM ELECTROMECHANICAL ASSEMBLER COVID-19 Rule Out 07/18/2020 07/18/2020 07/20/2020 7:00 AM ELECTROMECHANICAL ASSEMBLER COVID-19 Rule Out 06/07/2021 06/07/2021 06/14/2021 12:32 AM ELECTROMECHANICAL ASSEMBLER COVID-19 Rule Out 12/13/2021 12/13/2021 12/13/2021 4:48 PM CDT COVID-19 Rule Out 12/13/2021 12/13/2021 12/14/2021 4:35 PM CDT COVID-19 Rule Out 06/27/2022 06/27/2022 06/28/2022 1:09 PM ELECTROMECHANICAL ASSEMBLER documented as of this encounter Care Teams Inductor Tester Relationship Specialty Start Date End Date Sandy Hammond FNP [address] [place] [address] PCP - General NURSE PRACTITIONER 11/19/17 documented as of this encounter
--- OUTSIDE RECORDS SUMMARY | 2024-07-10 15:23 | XMS_ITS | Encounter Summary ---
Author Organization [facility] Address [address] [place] [address] Phone Care Team Providers Care Novelty Printing Machine Operator Name Role Phone Sandy Hammond APRN, HOME INSPECTOR Primary Care Provider Jorge Ruano MD Unavailable Encounter Details Date Type Department Care Team (Late st Contact Info) Description 03/15/2024 Telephone [facility] [address] [place] [address] Jorge Ruano MD [address] [place] [address] Social History Tobacco Use Types Packs/Day Years Used Date Smoking Tobacco: Never Smokeless Tobacco: Never Alcohol Use Standard Drinks/Week Comments Yes 0 (1 standard drink = 0.6 oz pur e alcohol) rarely Comments Unknown Sex and Gender Information Value Date Recorded Sex Assigned at Not on file Legal Sex Female 2:36 PM CDT Gender Identity Not on file Sexual Orientation Not on file documented as of this encounter Miscellaneous Notes * Telephone Encounter - Ele L[place] - 03/15/2024 3:20 PM CDT Patient missed appointment called left voicemail sent reminder letter. documented in this encounter Plan of Treatment Not on file documented as of this encounter Visit Diagnoses Not on filedocumented in this encounter Care Teams Novelty Printing Machine Operator Relationship Specialty Start Date End Date Sandy Hammond, AMARI, HOME INSPECTOR [address] [place] [address] PCP - General Internal Medicine 09/03/23 Jorge Ruano MD [address] [place] [phone] Consulting Physician Oncology 09/03/23 documented as of this encounter
--- OUTSIDE RECORDS SUMMARY | 2024-07-10 15:23 | XMS_ITS | Encounter Summary ---
Author Organization [facility] Address [address] [place] [address]. [place], [place] [address] [place] [address] Care Team Providers Care Ada Accommodation Consultant Name Role Phone Sandy Hammond Primary Care Provider [phone] Encounter Details Date Type Department Care Team (Late st Contact Info) Description 08/02/2020 [employer] Message Enc [facility] Family & Internal Medicine [place] [address] [place] [address] Sandy Hammond FNP [facility] [place], [place] [id number] RE: FW: Question Social History Tobacco Use Types Packs/Day Years Used Date Smoking Tobacco: Never Smokeless Tobacco: Never Alcohol Use Standard Drinks/Week Comments Yes 0 (1 standard drink = 0.6 oz pur e alcohol) RARELY, less than montly AUDIT-C Answer Date Recorded Frequency of Alcohol [...] on file documented as of this encounter Plan of Treatment Upcoming Encounters Date Type Department Care Team (Late st Contact Info) Description 07/12/2024 1:00 PM MEDICAL EQUIPMENT SALES Laboratory Only [facility] Family & Internal Medicine - [place] [address] [place] [address] Sandy Hammond FNP [address] [place] [address] 08/23/2024 3:00 PM CDT Office Visit [facility] Multispecialty Care - [facility] [address] [facility], [address] [place] [address] Macario Han MD [address] [place] [address] documented as of this encounter Visit Diagnoses Not on filedocumented in this encounter Additional Health Concerns Infection Onset Date Last Indicated Resolved Time COVID-19 Rule Out 06/07/2021 06/07/2021 06/14/2021 12:32 AM MEDICAL EQUIPMENT SALES COVID-19 Rule Out 12/13/2021 12/13/2021 12/13/2021 4:48 PM CDT COVID-19 Rule Out 12/13/2021 12/13/2021 12/14/2021 4:35 PM CDT COVID-19 Rule Out 06/27/2022 06/27/2022 06/28/2022 1:09 PM MEDICAL EQUIPMENT SALES documented as of this encounter Care Teams Ada Accommodation Consultant Relationship Specialty Start Date End Date Sandy Hammond FNP [address] [place] [address] PCP - General NURSE PRACTITIONER 11/19/17 documented as of this encounter
--- OUTSIDE RECORDS SUMMARY | 2024-07-10 15:23 | XMS_ITS | Encounter Summary ---
Author Organization [facility] Address [address] [place] [address]. [place], [place] [address] [place] [address] Care Team Providers Care Media Services Director Name Role Phone Sandy Hammond Primary Care Provider [phone] Encounter Details Date Type Department Care Team (Late st Contact Info) Description 09/06/2021 General [employer] Message Enc [facility] Family & Internal Medicine [place] [address] [place] [address] Sandy Hammond FNP [address] [place] [address] UTI symptoms Social History Tobacco Use Types Packs/Day Years [...] 09/07 PHQ-2 Answer Date Recorded PHQ-2 Score - If the patient scores above 3, please move on to questions 3-9 2 11/07/2020 Comments No Sex and Gender Information Value Date Recorded Sex Assigned at Female 12/30/2023 1:13 PM CDT Legal Sex Female 1:59 PM CDT Gender Identity Female 12/30/2023 1:13 PM CDT Sexual Orientation Not on file COVID-19 Exposure Response Date Recorded In the last 10 days, have yo u been in contact with someone who was confirmed or suspected to have Coronavirus/COVID-19? No / Unsure 09/07/2021 2:16 PM CDT documented as of this encounter Plan of Treatment Upcoming Encounters Date Type Department Care Team (Late st Contact Info) Description 07/12/2024 1:00 PM SHEET METAL HELPER Laboratory Only [facility] Family & Internal Medicine - [place] [address] [place] [address] Sandy Hammond FNP [facility] [place] [address] 08/23/2024 3:00 PM CDT Office Visit [facility] Multispecialty Care - [facility] [address] [facility], [address] [place] [address] Macario Han MD [address] [place] [address] documented as of this encounter Visit Diagnoses Not on filedocumented in this encounter Additional Health Concerns Infection Onset Date Last Indicated Resolved Time COVID-19 Rule Out 12/13/2021 12/13/2021 12/13/2021 4:48 PM CDT COVID-19 Rule Out 12/13/2021 12/13/2021 12/14/2021 4:35 PM CDT COVID-19 Rule Out 06/27/2022 06/27/2022 06/28/2022 1:09 PM SHEET METAL HELPER Assessment Noted Time PHQ-9 Depression Total Score: 3 11/08/19 21 1:12 PM CDT documented as of this encounter Care Teams Media Services Director Relationship Specialty Start Date End Date Sandy Hammond FNP [address] [place] [address] PCP - General NURSE PRACTITIONER 11/19/17 documented as of this encounter
--- OUTSIDE RECORDS SUMMARY | 2024-07-10 15:23 | XMS_ITS | Clinical Summary ---
Author Organization [facility] [employer] Address [address] [place] [address] Care Team Providers Care Dry Ice Machine Operator Name Role Phone Manish Sandy FITZPATRICK-ARIANA Primary Care Provider [phone] Source Comments [facility] [employer],non-owned Affiliates and Associated Physician Practices is amultiple site organization consisting of ambulatory clinics and hospital sitesin [place], [place], [place] and [place]. This disclosure is being madepursuant to the Care Everywhere program and may not contain all information available regarding this patient. Last updated 18.[facility] [employer] Allergies Active Allergy Reactions Criticality Noted Date Comments Carvedilol 01/23/2017 Sacubitril-Valsartan 01/23/2017 Weakness Atorvastatin Myalgias 03/25/2016 Penicillins Anaphylaxis High 03/25/2016 Simvastatin Myalgias 03/25/2016 Medications * Be aware that medications may not be up to date on this document. Alwaysverify current medications with the patient. Medication Sig Dispensed Refills Start Date End Date Status zolpidem (AMBIEN) 5 MG tablet Take 5 mg by mouth once daily 03/17/2016 Active traMADol (ULTRAM) 50 MG tablet Take 50 mg by mouth every 4 hours as needed 03/17/2016 Active omeprazole (PRILOSEC) 40 MG capsule Take 40 mg by mouth once daily 01/18/2016 Active LORazepam (ATIVAN) 1 MG tablet Take 1 mg by mouth once daily as needed 02/26/2016 Active levothyroxine (SYNTHROID) 50 MCG tablet Take 50 mcg by mouth once daily 01/18/2016 Active XOPENEX HFA 45 MCG/ACT inhaler Inhale 2 Puffs by mouth 03/13/2016 Active amitriptyline (ELAVIL) 100 MG tablet Take 100 mg by mouth once daily 01/16/2016 Active aspirin (ASPIRIN) 325 MG tablet Take 325 mg by mouth once daily Active potassium chloride SA (MICRO-K) 10 MEQ capsule Take 1 Cap by mouth once daily 90 Cap 3 02/12/2017 Active furosemide (LASIX) 80 MG tablet TAKE 1 TABLET BY MOUTH EVERY DAY 90 tablet 3 12/14/2019 Active digoxin (LANOXIN) 0.125 MG tablet TAKE 2 TABLETS BY MOUTH ON FRIDAY AND FRIDAY THEN TAKE 1 TABLET ON ALL OTHER DAYS 120 tablet 3 12/14/2019 Active spironolactone (ALDACTONE) 50 MG tablet TAKE 1 TABLET BY MOUTH EVERY DAY 90 tablet 3 02/15/2020 Active candesartan (ATACAND) 4 MG tablet TAKE 1 TABLET BY MOUTH EVERY DAY 90 tablet 3 02/15/2020 Active metoprolol tartrate (LOPRESSOR) 25 MG tablet Take 1 tablet by mouth 2 times daily 180 tablet 2 05/09/2020 Active dofetilide (TIKOSYN) 125 MCG capsule Take 1 capsule by mouth every 12 hours 180 capsule 1 05/09/2020 Active Active Problems Patient Care Coordination No te Formatting of this note migh t be different from the original. EP- Bucky Alexander Problem Noted Date Diagnosed Date Atrial tachycardia 02/23/2020 Implantable defibrillator reprogramming/check PAF (paroxysmal atrial fibrillation) 08/08/2017 DCM (dilated cardiomyopathy) 04/11/2017 Chronic systolic CHF (congestive heart failure) 10/29/2016 S/P catheter ablation of slow pathway 04/26/2016 Overview (04/26/2016): AVNRT ablation NICM (nonischemic cardiomyopathy) 04/26/2016 Overview (01/21/2018): Peripartum CM -- She had a defibrillator placed in the early 1999s after developed peripartum cardiomyopathy and heart failure w/ of 4th child, with an initial EF of 12%. In retrospect, she thinks she may have had milder symptoms but similar w/ 3rd child too. With biventricular device, EF initially improved up to 50% by 05/2002. EF declined to 25-30% by late 2002 Then up to 45% by 2006. Then again was 20-25% by 2006. Up to 35-40% in 2010. Then down to 20% by early 2014. Had two ablations along the way, in 2007 and 2015. Echo 07/2016 -- Severe LVE. EF 10-15% w/ wall motion variability. Moderately severe MR. Mild TR. RVSP 33 mmHg. Echo 10/2016 -- Severe LVE. EF 20% with global severe HK and septal DK. Mild MR. Trace TR. RVSP 29 mmHg. Echo 01/2018 - mod LVE, EF 20% with global severe HK worse in anterior and septal prasad, mild MR, likely mild LV diastolic dysfunction, mild TR, RVSP 30-35 mmHg VT (ventricular tachycardia) 03/25/2016 VF (ventricular fibrillation) 03/25/2016 Biventricular ICD (implantab le cardioverter-defibrillator) in place 03/25/2016 Overview (09/03/2016): [facility] ICD - Unify Cailin [id number] SN: [id number] - Implanted 09/19/2014 by UNKNOWN RA: [facility] 1488 SN: [id number] (Implanted 12/30/2003) RV: [facility] 1581 SN: [id number] (Implanted 12/30/2003) LV: [facility] [id number] SN: [id number] (Implanted 08/29/[address] Queen) Resolved Problems Problem Noted Date Diagnosed Date Resolved Date Dilated cardiomyopathy 12/03/201801/28 Family History Medical History Relation Name Comments Cardiomyopathy Father Relation Name Status Comments Father Social History Tobacco Use Types Packs/Day Years Used Date Smoking Tobacco: Never Smokeless Tobacco: Never Alcohol Use Standard Drinks/Week Comments Yes 0 (1 standard drink = 0.6 oz pur e alcohol) rare Sex and Gender Information Value Date Recorded Sex Assigned at Not on file Gender Identity Not on file Sexual Orientation Not on file Last Filed Vital Signs Vital Sign Reading Time Taken Comments Blood Pressure 97/0 01/27/2020 4:03 PM CDT Pulse 83 02/22/2020 2:09 PM CDT Temperature - - Respiratory Rate 15 10/07/2016 1:01 PM CDT Oxygen Saturation 96% 01/27/2020 3:26 PM CDT Inhaled Oxygen Concentration - - Weight 88.5 kg (195 lb 3.2 oz) 02/22/2020 2:09 P M CDT Height 160 cm (5' 3 ) 02/22/2020 2:09 PM CDT Body Mass Index 34.58 02/22/2020 2:09 PM CDT Plan of Treatment Health Maintenance Due Date Last Done Comments COLOGUARD (AGES 45-75) - COLON CA SCREENING 1966 COLON MONITORING 1966 COLONOSCOPY - COLON CA SCREENING 1966 CT COLONOGRAPHY - COLON CA SCREENING 1966 Colorectal Cancer Screening 1966 FIT - COLON CA SCREENING 1966 FLEX SIG - COLON CA SCREENING 1966 LIPID TESTING 1966 MAMMOGRAM 1966 PAP SMEAR 1966 HIV SCREENING 1981 HEPATITIS C SCREENING 11/03/1984 DTAP/TDAP/TD VACCINES (1 - Tdap) 1985 HEPATITIS B VACCINE (1 of 3 - 19+ 3-dose series) 1985 PNEUMOCOCCAL VACCINE 50+ (1 of 2 - PCV) 1985 PNEUMOCOCCAL VACCINE (1 of 2 - PCV) 1985 ZOSTER VACCINE (1 of 2) 2016 SCREENING FOR DIABETES 06/24/2020 06/24/2017, 2016 COVID-19 VACCINE (2023- season) 2024 INFLUENZA VACCINE (#1) 2024 9, 08/25/2017, 06/30/2017, Additional history exists DEPRESSION SCREENING 06/09/2024 HIB VACCINE Aged Out No longer eligi ble based on patient's age to complete this topic HPV VACCINE Aged Out No longer eligi ble based on patient's age to complete this topic MENINGOCOCCAL (Group B) VACCINE Aged Out No longer eligible based on patient's age to complete this topic MENINGOCOCCAL VACCINE Aged Out No khushi ani eligible based on patient's age to complete this topic Procedures Procedure Name Priority Date/Time Associated Diagnosis Comments BASIC METABOLIC PANEL (CALCIUM TOTAL) 06/24/2017 1:54 PM HEAD STILL OPERATOR from Last 3 Months or Most Recently Relevant to Health Maintenance Results * BASIC METABOLIC PANEL (CALCIUM TOTAL) (06/24/2017 1:54 PM HEAD STILL OPERATOR) Glucose 96 65 - 99 mg/dL [facility] Comment: ? Fasting reference interval BUN 19 7 - 25 mg/dL [facility] Creatinine 0.95 0.50 - 1.05 mg/dL [facility] Comment: For patients >49 years of age, the reference limit for Creatinine is approximately 13% higher for people identified as -Indonesian. eGFR by MDRD 70 > OR = 60 mL/min/1 .73m2 [facility] eGFR by MDRD 81 > OR = 60 mL/min/1 .73m2 [facility] BUN/Creatinine Ratio NOT APPLICABLE 6 - 22 (calc) [facility] Sodium 140 135 - 146 mmol/L [facility] Potassium 4.1 3.5 - 5.3 mmol/L [facility] Chloride 101 98 - 110 mmol/L [facility] CO2 29 20 - 31 mmol/L [facility] Calcium 10.0 8.6 - 10.4 mg/dL [facility] Comment: Test Performed at: [facility] [address] [place], [place] ??[address] ROGELIO LICONA DO,MPH 06/24/2017 1:54 PM HEAD STILL OPERATOR 06/24/2017 1:55 PM HEAD STILL OPERATOR Bucky Alexander MD LAB - CHEMISTRY BREANNA PAULA [facility] Organization Address City/State/ZIP Co de Phone Number [phone] [place] [address] from Last 3 Months or Most Recently Relevant to Health Maintenance Care Teams Dry Ice Machine Operator Relationship Specialty Start Date End Date Sandy Hammond APRN-ARIANA [address] [place] [address] PCP - General 11/20/21
--- OUTSIDE RECORDS SUMMARY | 2024-07-10 15:23 | XMS_ITS | Encounter Summary ---
Author Organization [facility] Address [address] [place] [address]. [place], [place] [address] [place] [address] Care Team Providers Care Stove Bottom Worker Name Role Phone Sandy Hammond Primary Care Provider [phone] Encounter Details Date Type Department Care Team (Late st Contact Info) Description 10/13/2019 Invesharet Message Enc [facility] Medical Group Family & Internal Medicine [place] [address] [place] [address] aSndy Hammnod FNP [address] [place] [address] RE: FW: Question Social History Tobacco Use [...] st Contact Info) Description 07/12/2024 1:00 PM MANAGER COMPETITIVE INTELLIGENCE Laboratory Only [facility] Family & Internal Medicine - [place] [address] [place] [address] Sandy Hammond FNP [address] [place] [address] 08/23/2024 3:00 PM CDT Office Visit [facility] Multispecialty Care - [facility] [address] [facility], [address] [place] [address] Macario Han MD [address] [place] [address] documented as of this encounter Visit Diagnoses Not on filedocumented in this encounter Additional Health Concerns Infection Onset Date Last Indicated Resolved Time COVID-19 Rule Out 01/11/2020 01/20/2020 03/20/2020 12:33 AM CDT COVID-19 Rule Out 05/08/2020 05/11/2020 05/19/2020 3:16 PM MANAGER COMPETITIVE INTELLIGENCE COVID-19 Rule Out 07/18/2020 07/18/2020 07/20/2020 7:00 AM MANAGER COMPETITIVE INTELLIGENCE COVID-19 Rule Out 06/07/2021 06/07/2021 06/14/2021 12:32 AM MANAGER COMPETITIVE INTELLIGENCE COVID-19 Rule Out 12/13/2021 12/13/2021 12/13/2021 4:48 PM CDT COVID-19 Rule Out 12/13/2021 12/13/2021 12/14/2021 4:35 PM CDT COVID-19 Rule Out 06/27/2022 06/27/2022 06/28/2022 1:09 PM MANAGER COMPETITIVE INTELLIGENCE documented as of this encounter Care Teams Stove Bottom Worker Relationship Specialty Start Date End Date Sandy Hammond FNP [address] [place] [address] PCP - General NURSE PRACTITIONER 11/19/17 documented as of this encounter
--- OUTSIDE RECORDS SUMMARY | 2024-07-10 15:23 | XMS_ITS | Encounter Summary ---
Author Organization [facility] Address [address] [place] [address]. [place], [place] [address] [place] [address] Care Team Providers Care Air Analyst Name Role Phone Sandy Hammond Primary Care Provider [phone] Encounter Details Date Type Department Care Team (Late st Contact Info) Description 06/18/2021 [employer] Message Enc [facility] Medical Group Family & Internal Medicine [place] [address] [place] [address] Sandy Hammond FNP [address] [place] [address] Covid Headaches Social History Tobacco Use Types Packs/Day Years [...] st Contact Info) Description 07/12/2024 1:00 PM DIETARY MANAGER Laboratory Only [facility] Family & Internal Medicine - [place] [address] [place] [address] Sandy Hammond FNP [address] [place] [address] 08/23/2024 3:00 PM CDT Office Visit [facility] Multispecialty Care - [facility] [address] [facility], [address] [place] [address] Macario Han MD 3 [place] [address] documented as of this encounter Visit Diagnoses Not on filedocumented in this encounter Additional Health Concerns Infection Onset Date Last Indicated Resolved Time COVID-19 Rule Out 12/13/2021 12/13/2021 12/13/2021 4:48 PM CDT COVID-19 Rule Out 12/13/2021 12/13/2021 12/14/2021 4:35 PM CDT COVID-19 Rule Out 06/27/2022 06/27/2022 06/28/2022 1:09 PM DIETARY MANAGER Assessment Noted Time PHQ-9 Depression Total Score: 3 11/08/19 21 1:12 PM CDT documented as of this encounter Care Teams Air Analyst Relationship Specialty Start Date End Date Sandy Hammond FNP [address] [place] [address] PCP - General NURSE PRACTITIONER 11/19/17 documented as of this encounter
--- OUTSIDE RECORDS SUMMARY | 2024-07-10 15:23 | XMS_ITS | Encounter Summary ---
Author Organization [facility] Address [address] [place] [address]. [place], [place] [address] [place] [address] Care Team Providers Care Tour Coordinator Name Role Phone Sandy Hammond Primary Care Provider [phone] Encounter Details Date Type Department Care Team (Late st Contact Info) Description 05/10/2020 Yated[employer] Message Enc [facility] Medical Group Family & Internal Medicine [address] [place] [address] Sandy Hammond FNP [facility] [place], [place] [address] RE: Referral Request Social History Tobacco Use Types Packs/Day Years [...] st Contact Info) Description 07/12/2024 1:00 PM TRAFFIC OBSERVER Laboratory Only [facility] Medical [facility] Family & Internal Medicine - [place] [address] [place] [address] Sandy Hammond FNP [address] [place] [address] 08/23/2024 3:00 PM CDT Office Visit [facility] Multispecialty Care - [facility] [address] [facility], [address] [place] [address] Macario Han MD 3 [place] [address] documented as of this encounter Visit Diagnoses Not on filedocumented in this encounter Additional Health Concerns Infection Onset Date Last Indicated Resolved Time COVID-19 Rule Out 05/08/2020 05/11/2020 05/19/2020 3:16 PM TRAFFIC OBSERVER COVID-19 Rule Out 07/18/2020 07/18/2020 07/20/2020 7:00 AM TRAFFIC OBSERVER COVID-19 Rule Out 06/07/2021 06/07/2021 06/14/2021 12:32 AM TRAFFIC OBSERVER COVID-19 Rule Out 12/13/2021 12/13/2021 12/13/2021 4:48 PM CDT COVID-19 Rule Out 12/13/2021 12/13/2021 12/14/2021 4:35 PM CDT COVID-19 Rule Out 06/27/2022 06/27/2022 06/28/2022 1:09 PM TRAFFIC OBSERVER documented as of this encounter Care Teams Tour Coordinator Relationship Specialty Start Date End Date Sandy Hammond FNP [address] [place] [address] PCP - General NURSE PRACTITIONER 11/19/17 documented as of this encounter
--- OUTSIDE RECORDS SUMMARY | 2024-07-10 15:23 | XMS_ITS | Encounter Summary ---
Author Organization [facility] Address [address] [place] [address]. [place], [place] [address] [place] [address] Care Team Providers Care Restorative Coordinator Name Role Phone Sandy Hammond Primary Care Provider [phone] Encounter Details Date Type Department Care Team (Late st Contact Info) Description 05/29/2020 [employer] Message Enc [facility] Medical Group Family & Internal Medicine [place] [address] [place] [address] Sandy Hammond FNP [address] [place] [address] RE: Follow Up/Update Social History Tobacco Use Types Packs/Day Years [...] as of this encounter Progress Notes * Silvestre Pisano, DO - 05/29/2020 4:10 PM CST Continue taking the medicine; the jaw dislocation doesn't sound related. Would monitor that. It's encouraging that pt is improving, but I can't say with 100% certainty that pt isn't still infectious.Would certainly recommend social distancing techniques as best as possible if she does see her. ASSEMBLY WIRER documented in this encounter Plan of Treatment Upcoming Encounters Date Type Department Care Team (Late st Contact Info) Description 07/12/2024 1:00 PM PRE ASSEMBLY WIRER Laboratory Only [facility] Family & Internal Medicine - [address] [address] [address] [address] 08/23/2024 3:00 PM CDT Office Visit [facility] Multispecialty Care - [facility] [address] [facility], [address] [place] [address] Macario Han MD 3 [place] [address] documented as of this encounter Visit Diagnoses Not on filedocumented in this encounter Additional Health Concerns Infection Onset Date Last Indicated Resolved Time COVID-19 Rule Out 07/18/2020 07/18/2020 07/20/2020 7:00 AM PRE ASSEMBLY WIRER COVID-19 Rule Out 06/07/2021 06/07/2021 06/14/2021 12:32 AM PRE ASSEMBLY WIRER COVID-19 Rule Out 12/13/2021 12/13/2021 12/13/2021 4:48 PM CDT COVID-19 Rule Out 12/13/2021 12/13/2021 12/14/2021 4:35 PM CDT COVID-19 Rule Out 06/27/2022 06/27/2022 06/28/2022 1:09 PM PRE ASSEMBLY WIRER documented as of this encounter Care Teams Restorative Coordinator Relationship Specialty Start Date End Date Sandy Hammond FNP [address] [place] [address] PCP - General NURSE PRACTITIONER 11/19/17 documented as of this encounter
--- OUTSIDE RECORDS SUMMARY | 2024-07-10 15:23 | XMS_ITS | Encounter Summary ---
Author Organization [facility] Address [address] [place] [address]. [place], [place] [address] [place] [address] Care Team Providers Care Chief Hydroelectric Station Operator Name Role Phone Sandy Hammond Primary Care Provider [phone] Encounter Details Date Type Department Care Team (Late st Contact Info) Description 11/15/2021 [employer] Message Enc [facility] Medical Group Family & Internal Medicine [place] [address] [place] [address] Sandy Hammond FNP [facility] [place], [place] [id number] BMP Results Social History Tobacco Use Types Packs/Day Years [...] please move on to questions 3-9 2 10/12/2021 Comments No Sex and Gender Information Value Date Recorded Sex Assigned at Female 12/30/2023 1:13 PM CDT Legal Sex Female 1:59 PM CDT Gender Identity Female 12/30/2023 1:13 PM CDT Sexual Orientation Not on file documented as of this encounter Plan of Treatment Upcoming Encounters Date Type Department Care Team (Late st Contact Info) Description 07/12/2024 1:00 PM CASE CHECKER Laboratory Only [facility] Family & Internal Medicine - [place] [address] [place] [address] Sandy Hammond FNP [address] [place] [address] 08/23/2024 3:00 PM CDT Office Visit [facility] Multispecialty Care - [facility] [address] [facility], [address] [place] [address] Macario Han MD 3 [place] [address] documented as of this encounter Visit Diagnoses Not on filedocumented in this encounter Additional Health Concerns Infection Onset Date Last Indicated Resolved Time COVID-19 Rule Out 12/13/2021 12/13/2021 12/13/2021 4:48 PM CDT COVID-19 Rule Out 12/13/2021 12/13/2021 12/14/2021 4:35 PM CDT COVID-19 Rule Out 06/27/2022 06/27/2022 06/28/2022 1:09 PM CASE CHECKER Assessment Noted Time PHQ-9 Depression Total Score: 6 10/13/19 22 11:56 AM CDT documented as of this encounter Care Teams Chief Hydroelectric Station Operator Relationship Specialty Start Date End Date Sandy Hammond FNP [address] [place] [address] PCP - General NURSE PRACTITIONER 11/19/17 documented as of this encounter
--- OUTSIDE RECORDS SUMMARY | 2024-07-10 15:23 | XMS_ITS | Encounter Summary ---
Author Organization [facility] Address [address] [place] [address]. [place] [address] [place] [address] Care Team Providers Care Clinical Associate Name Role Phone Sandy Hammond CREW CALLER Primary Care Provider [phone] Encounter Details Date Type Department Care Team (Late st Contact Info) Description 12/29/2023 Finderly Message [facility] Medical Group Foot [facility]le Specialists [facility] [address] [place] [address] Angel Luis, [facility] Provider 12/30/23 Appointment Social History Tobacco Use Types Packs/Day Years Used Date Smoking Tobacco: Never Passive Smoke Exposure: Past Smokeless Tobacco: Never Alcohol Use Standard Drinks/Week Comments Not Currently 0 (1 standard drink = 0.6 oz pur e alcohol) 1 drink about every 6 months AUDIT-C Answer Date Recorded Frequency of Alcohol Consumption Monthly or less 09/25/2018 Average Number of Drinks Not on file 019 Frequency of Binge Drinking Not on file 09/07 PHQ-2 Answer Date Recorded Patient Health Questionnaire-2 Score 0 10/20/2023 Comments No Sex and Gender Information Value Date Recorded Sex Assigned at Female 12/30/2023 1:13 PM CDT Legal Sex Female 1:59 PM CDT Gender Identity Female 12/30/2023 1:13 PM CDT Sexual Orientation Not on file documented as of this encounter Plan of Treatment Upcoming Encounters Date Type Department Care Team (Late st Contact Info) Description 07/12/2024 1:00 PM MECHANICAL MAINTENANCE ENGINEER Laboratory Only [facility] Family & Internal Medicine - [place] [address] [place] [address] Sandy Hammond FNP [address] [place] [address] 08/23/2024 3:00 PM CDT Office Visit [facility] Multispecialty Care - [facility] 3 [facility], [address] [place] [address] Macario Han MD 3 [place] [address] documented as of this encounter Visit Diagnoses Not on filedocumented in this encounter Additional Health Concerns Assessment Noted Time PHQ-9 Depression Total Score: 6 10/13/19 22 11:56 AM CDT documented as of this encounter Care Teams Clinical Associate Relationship Specialty Start Date End Date Sandy Hammond FNP [address] [place] [address] PCP - General NURSE PRACTITIONER 11/19/17 documented as of this encounter
--- OUTSIDE RECORDS SUMMARY | 2024-07-10 15:23 | XMS_ITS | Encounter Summary ---
Author Organization [facility] Address [address] [place] [address]. [place], [place] [address] [place] [address] Care Team Providers Care Family [place] Case Manager Name Role Phone Sandy Hammond Primary Care Provider [phone] Encounter Details Date Type Department Care Team (Late st Contact Info) Description 06/08/2021 [employer] Message Enc [facility] Medical Group Family & Internal Medicine [place] [address] [place] [address] Sandy Hammond FNP [address] [place] [address] Covid test Social History Tobacco Use Types Packs/Day Years [...] st Contact Info) Description 07/12/2024 1:00 PM DIVING BOARD ASSEMBLER Laboratory Only [facility] Medical [facility] Family & Internal Medicine - [address] [address] Sandy Hammond FNP [address] [place] [address] 08/23/2024 3:00 PM CDT Office Visit [facility] Multispecialty Care - [facility] [address] [facility], [address] [place] [address] Macario Han MD 3 [place] [address] documented as of this encounter Visit Diagnoses Not on filedocumented in this encounter Additional Health Concerns Infection Onset Date Last Indicated Resolved Time COVID-19 Rule Out 06/07/2021 06/07/2021 06/14/2021 12:32 AM DIVING BOARD ASSEMBLER COVID-19 Rule Out 12/13/2021 12/13/2021 12/13/2021 4:48 PM CDT COVID-19 Rule Out 12/13/2021 12/13/2021 12/14/2021 4:35 PM CDT COVID-19 Rule Out 06/27/2022 06/27/2022 06/28/2022 1:09 PM DIVING BOARD ASSEMBLER Assessment Noted Time PHQ-9 Depression Total Score: 3 11/08/19 21 1:12 PM CDT documented as of this encounter Care Teams Family [place] Case Manager Relationship Specialty Start Date End Date Sandy Hammond FNP [address] [place] [address] PCP - General NURSE PRACTITIONER 11/19/17 documented as of this encounter
--- OUTSIDE RECORDS SUMMARY | 2024-07-10 15:23 | XMS_ITS | Referral Summary ---
Author Organization [facility] Address [address] [place] [address] Care Team Providers Care Production Maintenance Mechanic Name Role Phone Sandy Hammond NP Primary Care Provider [phone] Rashi MONACO MD, Joe Marks Unavailable [phone] Bucky Alexander MD Unavailable [phone] Allergies Active Allergy Reactions Criticality Noted Date Comments Atorvastatin Unknown,Muscle pain Medium 03/25/2016 Penicillins Rash,Other (See comments),Anaphylaxi s High 03/25/2016 Reaction: Rash, , Reaction: Rash, Simvastatin Unknown,Muscle pain Medium 03/25/2016 Drtbsnz-Jvj-Wmw Reductase Inhibitors Other (See comments) Reaction: Muscle weak, ache, Medications LORazepam (ATIVAN) 1 mg tablet Take 1 tablet (1 mg total) by mouth 2 (two) times a day as needed for anxiety Active amitriptyline (ELAVIL) 100 mg tablet Take 1 tablet (100 mg total) by mouth nightly Active aspirin 325 mg tablet Take 1 tablet (325 mg total) by mouth daily Active digoxin (LANOXIN) 125 mcg tablet Take 1 tablet (125 mcg total) by mouth daily Active levalbuterol (XOPENEX HFA) 45 mcg/actuation inhaler Inhale 1-2 puffs every 6 (six) hours as needed for wheezing Active omeprazole (PriLOSEC) 40 mg capsule Take 1 capsule (40 mg total) by mouth daily Active potassium chloride ER (KLOR-CON,K-DUR) 10 mEq CR tablet Take 1 tablet/capsu le (10 mEq total) by mouth daily Active spironolactone (ALDACTONE) 50 mg tablet Take 1 tablet (50 mg total) by mouth daily Active zolpidem (AMBIEN) 5 mg tabletIndications:S leep-Onset Insomnia Take 1 tablet (5 mg total) by mouth nightly Active dofetilide (TIKOSYN) 125 mcg capsule Take 1,000 capsules (125,000 mcg total) by mouth 2 (two) times a day 0 9 Active traMADol-acetaminop hen (ULTRACET) 37.5-325 mg per tablet TAKE 1 TABLET BY MOUTH EVERY 4 HOURS NEEDED FOR PAIN OR CHRONIC PAIN 1 Active cholecalciferol (VITAMIN D-3) 5,000 unit capsule Take 1 capsule (5,000 Units total) by mouth daily 0 Active metoprolol XL (TOPROL-XL) 50 mg extended release tablet Take 1 tablet (50 mg total) by mouth daily 30 tablet 11 3 Active sacubitriL-valsarta n (Entresto) 24-26 mg tablet Take 1 tablet by mouth 2 (two) times a day 180 tablet 3 3 Active Farxiga 5 mg tablet Take 1 tablet (5 mg total) by mouth daily 2 Active levothyroxine (SYNTHROID) 50 mcg tabletIndications:A cquired hypothyroidism Take 1 tablet (50 mcg total) by mouth daily 90 tablet 3 4 01/26/20 25 Active furosemide (LASIX) 40 mg tablet Take 2 tablets (80 mg total) by mouth daily 180 tablet 3 4 Active Active Problems Problem Noted Date Diagnosed Date COVID-19 06/08/2021 Acute cough 06/08/2021 Shortness of breath 06/08/2021 Fever 06/08/2021 Acquired hypothyroidism 10/25/2019 Assessment & Plan (01/26/2024 4:15 PM CDT): Chronic, unknown status Patient currently on levothyroxine 50 mcg oral daily Recheck thyroid function test today and further plans based on it Assessment & Plan (12/05/2022 10:50 AM CDT): Chronic problem. Reviewed TFTs ordered/resulted by PCP 09/2022. Continues on levothyroxine 50mcg daily. Assessment & Plan (12/31/2021 4:21 PM CDT): Continue current Levothyroxine dose Recheck TSH and further plans based on it Assessment & Plan (01/03/2021 9:37 PM CDT): Continue current Levothyroxine dose Recheck TSH and further plans based on it Assessment & Plan (10/25/2019 1:55 PM CDT): Continue current Levothyroxine dose Recheck TSH in 3 months Class 2 obesity due to exces s calories without serious comorbidity with body mass index (BMI) of 36.0 to 36.9 in adult 10/25/2019 Assessment & Plan (01/03/2021 9:38 PM CDT): Chronic, worsening Counseled on diet and exercise Assessment & Plan (10/25/2019 1:56 PM CDT): Chronic, unchanged Discussed about healthy lifestyle habits advise to work on healthy diet, avoid processed foods , increase vegetables and protein and cut back on carb portions and also avoid fruit juices and regular soda and desserts Increase physical activity , recommend at least 150 min of aerobic activity per week and include resistance training 2 x weekly Multinodular goiter 12/01/2017 Assessment & Plan (01/26/2024 4:17 PM CDT): Status post left dominant thyroid nodule FNA biopsy in the past with benign cytology Performed a follow-up thyroid ultrasound in office today Noted left dominant thyroid nodule measuring approximately 3.45 cm in size slightly increased in size over last 2 years, but look low suspicious No compressive symptoms Check TSH today Assessment & Plan (12/05/2022 10:49 AM CDT): Chronic problem. Reviewed labs US results with Mrs Salazar. She initially did not want to have US ordered. Discussed airway difficulties (have improved from last summer somewhat) & she agreed to have US completed. Will go to [facility]. Aware that I will call/send [facility] results letter once rec'd. If she's not heard from our office with results after completed--she will call to make sure we have rec'd the results. Assessment & Plan (12/31/2021 4:21 PM CDT): dominant left thyroid complex nodule S/p FNA left thyroid Nodule biospy 12/2017 - Cytology benign follicular cyst No compressive symptoms Pt denies any compressive symptoms Follow up thyroid ultrasound performed today - noted 3 cm left dominant complex nodule - noted slight increase in size when compared to 2018 Will continue to follow for now Follow up in one year Assessment & Plan (01/03/2021 9:36 PM CDT): S/p FNA left thyroid Nodule biospy 12/2017 Cytology benign follicular cyst No compressive symptoms Pt denies any compressive symptoms Follow up thyroid ultrasound performed today - noted 2.7 cm left dominant complex nodule - noted slight increase in size when compared to 2018 Will continue to follow for now Follow up in one year Assessment & Plan (10/25/2019 1:54 PM CDT): S/p FNA left thyroid Nodule biospy 12/2017 Cytology benign follicular cyst No compressive symptoms Pt denies any compressive symptoms Plan to recheck TSH in 3 months Follow up in 3 months for a repeat thyroid ultrasound check Assessment & Plan (12/13/2018 7:14 PM CDT): S/p FNA left thyroid Nodule biospy 12/2017 Cytology benign follicular cyst No compressive symptoms Assessment & Plan (12/24/2017 11:02 AM CDT): performed FNA left thyroid Nodule biospy today in clinic Pt. Tolerated procedure well Further plans based on cytology results Assessment & Plan (12/08/2017 9:30 PM CDT): Reviewed outside thyroid ultrasound report Mild thyromegaly with multiple bilateral nodules with left 2.2 cm dominant solid nodule Left 2.2 cm thyroid nodule - that meets criteria for FNA biopsy , based on its size Explained pt that 85 % of thyroid nodules are benign and 10 -15 % of risk of malignancy Pt. Has no compressive symptoms Advised pt. 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 Trace TR. RVSP 29 mmHg. 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 [id number] SN: [id number] - Implanted 09/19/2014 by UNKNOWN RA: SJM 1488 SN: [id number] (Implanted 12/30/2003) RV: SJM 1581 SN: [id number] (Implanted 12/30/2003) LV: [facility] [id number] SN: [id number] (Implanted 08/29/[address] Queen) Implantable defibrillator reprogramming/check Overview (09/29/2020): [employer] [place] ICD - Unify Assura [id number] SN: [id number] - Implanted 09/19/2014 by UNKNOWN RA: SJM 1488 SN: [id number] (Implanted 12/30/2003) RV: SJM 1581 SN: [id number] (Implanted 12/30/2003) LV: [facility] [id number] SN: [id number] (Implanted 08/29/[address] Queen) Ventricular tachycardia 03/25/2016 Social History Tobacco Use Types Packs/Day Years Used Date Smoking Tobacco: Never Smokeless Tobacco: Never Tobacco Cessation:Counseling Given: Not Answered Alcohol Use Standard Drinks/Week Comments No 0 (1 standard drink = 0.6 oz pur e alcohol) PHQ-2 Answer Date Recorded PHQ-2 Total Score (If total score is 3 or more points, staff should administer the PHQ-9) 0 01/26/2024 Personal Safety Answer Date Recorded Getting School Help Needed Not on file 08/08 Comments Unknown Sex and Gender Information Value Date Recorded Sex Assigned at Not on file Legal Sex Female 4:23 AM PRECIPITATION EQUIPMENT TENDER Gender Identity Not on file Sexual Orientation Not on file Last Filed Vital Signs Vital Sign Reading Time Taken Comments Blood Pressure 92/80 01/26/2024 3:52 PM CDT Pulse 108 01/26/2024 3:52 PM CDT Temperature 36.2 ??C (97.1 ??F) 06/11/2021 4:15 PM CS T Respiratory Rate 16 01/26/2024 3:52 PM CDT Oxygen Saturation 95% 12/16/2023 11:26 AM CDT Inhaled Oxygen Concentration - - Weight 86.6 kg (191 lb) 01/26/2024 3:52 PM CDT Height 157.5 cm (5' 2 ) 01/26/2024 3:52 PM CDT Body Mass Index 34.93 01/26/2024 3:52 PM CDT Plan of Treatment Not on file [place] [address] [place] [address] [facility] CLAIMS [facility] CLAIMS [facility] CLAIM[facility] Advance Directives For more information, please contact: [phone] * Full Code (Latest Code Status on File) Date Activated Date Inactivated Comments 08/18/2017 8:35 AM 08/20/2017 3:34 PM Care Teams Production Maintenance Mechanic Relationship Specialty Start Date End Date Sandy Hammond NP [address] [place] [id number] PCP - General Nurse Practitioner 10/26/18 Joe Markham III, MD [address] [facility] [address], [place] [id number] Referring Physician Cardiology 09/29/20 Bucky Alexander MD [address] [facility] [address], [place] [address] Residential Worker Electrophysiology 10/17/20
--- OUTSIDE RECORDS SUMMARY | 2024-07-10 15:23 | XMS_ITS | Continuity of Care Document ---
Author Organization [facility] Address [facility] [place] [address] Phone Care Team Providers Care Roller Mechanic Name Role Phone Lalo Ochoa MD Unavailable [...] times every day 80 MG - Active aspirin 325 mg tablet take [...] route every day Not Available - Active AMBIEN (unknown strength) as needed [...] Diagnoses Date Provider Providers Copied on Encounter [facility] , [facility], [address] [place] [address], [id number] , tel:[phone] [place] [facility] No Information 6 Gabriela May. [address] [place] [address], [id number] , [place]. tel:[phone] [facility] , [facility], [address] [place] [address], [id number] , tel: [phone] [place] [facility] No Information 6 Gabriela May. [address] [place] [address], [id number] , . tel:[phone] [facility], [address] [place] [address], [id number] , tel:[phone] Main Office Encntr for adjust and mgmt of automatic implntbl card defibChronic systolic (congestive) heart failureOth complications of the puerperium, [facility] 6 Hardik Flores. [address] [place] [address], [id number] , [place]. tel:[phone] Referring Provider: Mark Tovar, [address] [place] [address], [id number] . tel:[phone] [facility], [address] [place] [address], [id number] , tel:[phone] Main Office EKG (chief complaint) Supraventricular tachycardiaUnspecifie d atrial flutter 6 Hardik Flores. [address] [place] [address], [address] [place] [address] , . [phone] Referring Provider: Mark Tovar, [address] [place] [address], [id number] . tel:[phone] [facility], [address] [place] [address], [id number] , [phone] Main Office Encntr for adjust and mgmt of automatic implntbl card defibOth complications of the puerperium, [facility] 6 Hardik Flores. [address] [place] [address], [id number] , [place]. [phone] Referring Provider: Mark Tovar, [address] [place] [address], [id number] . tel:[phone] OFFICE/OUTPA TIENT VISIT, EST [facility], [address] [place] [address], [id number] , tel:[phone] Main Office Follow up (chief complaint) Chronic systolic (congestive) heart failureVentricular fibrillationPresence of automatic (implantable) cardiac defibrillatorOther cardiomyopathiesSupra ventricular tachycardiaEssential (primary) hypertensionHyperlipi demia, unspecifiedHypothyroi dism, unspecifiedUnspecifie d atrial flutterObesity 6 Axel Gee. [address] [place] [address], [address] [place] [address] , . tel: [phone] Referring Provider: Mark Tovar, [address] [place] [address], [address] [place] [address] . tel:[phone] [facility], [address] [place] [address], [address] [place] [address] , tel: [phone] Main Office No Information 6 Hardik Flores. [address] [place] [address], [address] [place] [address] , . tel: [phone] [facility], [address] [place] [address], [address] [place] [address] , tel: [phone] Main Office Encntr for adjust and mgmt of automatic implntbl card defibChronic systolic (congestive) heart failurePalpitations 5 Hardik Flores. [address] [place] [address], [address] [place] [address] , . tel: [phone] Referring Provider: Mark Tovar, [address] [place] [address], [address] [place] [address] . tel:[phone] [facility], [address] [place] [address], [address] [place] [address] , tel: [phone] Main Office No Information 5 Hardik Flores. [address] [place] [address], [address] [place] [address] , . tel: [phone] Referring Provider: Mark Tovar, [address] [place] [address], [id number] . tel:[phone] [facility], [address] [place] [address], [address] [place] [address] , tel: [phone] Main Office No Information Hardik Flores. [address] [place] [address], [address] [place] [address] , [place]. tel: [phone] Referring Provider: Mark Tovar, [address] [place] [address], [address] [place] [address] . tel:[phone] OFFICE/OUTPA TIENT VISIT, [facility], [address] [place] [address], [address] [place] [address] , tel: [phone] [place] [facility] No Information 5 Gabriela May. [address] [place] [address], [address] [place] [address] , [place]. tel: [phone] Referring Provider: Lalo Alfreod, [address] [place] [address], [id number] . tel:[phone] [facility], [address] [place] [address], [address] [place] [address] , tel: [phone] Main Office No Information 5 Hardik Flores. [address] [place] [address], [address] [place] [address] , [place]. tel: [phone] Referring Provider: Mark Tovar, [address] [place] [address], [address] [place] [address] . tel:[phone] OFFICE/OUTPA TIENT VISIT, [facility], [address] [place] [address], [address] [place] [address] , tel: [phone] [place] [facility] No Information 5 Edward Flores. [address] [place] [address], [address] [place] [address] , [place]. tel: [phone] Referring Provider: Mark Guzman, [address] [place] [address], [address] [place] [address] . tel:[phone] [facility] [place] [employer] [facility], [address] [place] [address], [id number] , tel: [phone] [facility] OP No Information 5 Hardik Flores. [address] [place] [address], [id number] , [place]. tel: [phone] Referring Provider: Mark Tovar, [address] [place] [address], [address] [place] [address] . tel:[phone] OFFICE/OUTPA TIENT VISIT, [facility], [address] [place] [address], [id number] , [place] tel: [phone] Main Office No Information 5 Hardik Flores. [address] [place] [address], [id number] , [place]. tel: [phone] Referring Provider: Mark Tovar, [address] [place] [address], [address] [place] [address] . tel:[phone] [facility], [address] [place] [address], [id number] , tel: [phone] Main Office No Information Hardik Flores. [address] [place] [address], [address] [place] [address] , [place]. tel: [phone] Referring Provider: Mark Tovar, [address] [place] [address], [address] [place] [address] . tel:[phone] [facility], [address] [place] [address], [id number] , tel: [phone] [facility] No Information 5 Gabriela May. [address] [place] [address], [id number] , [place]. tel: [phone] Referring Provider: Lalo Alfredo, [address] [place] [address], [address] [place] [address] . tel:[phone] OFFICE/OUTPA TIENT VISIT, [facility], [address] [place] [address], [id number] , tel: [phone] Main Office No Information Hardik Flores. [address] [place] [address], [id number] , [place]. [phone] Referring Provider: Lalo Alfredo, [address] [place] [address], [id number] . tel:[phone] OFFICE/OUTPA TIENT VISIT, [facility] , [facility], [address] [place] [address], [id number] , [phone] [facility] No Information 5 Gabriela May. [address] [place] [address], [id number] , . [phone] Referring Provider: Lalo Alfredo, [address] [place] [address], [id number] . tel:[phone] Family History Family Member Type Diagnosis Age At Onset No Information Payers Payer name Insurance type Covered alliance party ID Authoriza tion(s) No Information Social History [...]
--- OUTSIDE RECORDS SUMMARY | 2024-07-10 15:23 | XMS_ITS | Clinical Summary ---
Author Organization [facility] Address [address] [place] [address]. [place], [place] [id number] [place] [id number] Care Team Providers Care Director Sterile Processing Name Role Phone Sandy Hammond RANULFO Primary Care Provider [phone] Allergies Active Allergy Reactions Criticality Noted Date Comments Atorvastatin Myalgias 03/25/2016 Carvedilol Unknown 01/23/2017 Penicillins Anaphylaxis,Unknown High 03/25/2016 Sacubitril-Valsartan Unknown 01/23/2017 Weakness Simvastatin Myalgias 03/25/2016 Statins Other (see comment) Reaction: Muscle weak, ache, Medications aspirin 325 MG tablet Take 1 tablet (325 mg total) by mouth daily. Active DIGOX 125 MCG tablet TK 2 TS PO ON FRIDAY AND FRIDAY THEN TK 1 T ON ALL OTHER DAYS 3 07/10/19 19 Active furosemide 80 MG tablet Take 1 tablet (80 mg total) by mouth daily. 03/04/20 17 Active Cholecalciferol (VITAMIN D) 125 MCG (5000 UT) CapIndications:Vi tamin D deficiency Take 1 capsule by mouth daily. 90 capsule 3 01/26/20 20 Active ENTRESTO 24-26 MG tablet Take 1 tablet by mouth 2 (two) times daily. 10/19/19 21 Active FARXIGA 5 MG Tab Take 1 tablet by mouth daily. 01/25/20 22 Active fluconazole (DIFLUCAN) 150 MG tabletIndications :Antibiotic-induc ed yeast infection Take one tablet now and you may repeat one tablet 72 hours for continued symptoms 2 tablet 1 10/30/19 24 Active diclofenac EC (VOLTAREN) 50 MG tabletIndications :Peripheral polyneuropathy Take 1 tablet (50 mg total) by mouth 3 (three) times daily as needed (pain). 180 tablet 3 10/30/19 24 Active levothyroxine (SYNTHROID) 50 MCG tabletIndications :Acquired hypothyroidism Take 1 tablet (50 mcg total) by mouth every morning. 90 tablet 1 10/30/19 24 Active levalbuterol (XOPENEX HFA) 45 MCG/ACT inhalerIndication s:Shortness of breath INHALE 1 PUFF INTO THE LUNGS EVERY 4 HOURS NEEDED FOR WHEEZING 45 g 11/06/19 24 Active amitriptyline (ELAVIL) 100 MG tabletIndications :Migraine without aura and without status migrainosus, not intractable TAKE 1 TABLET(100 MG) BY MOUTH DAILY 90 tablet 2 12/29/19 24 Active furosemide (LASIX) 40 MG tablet Take 2 tablets (80 mg total) by mouth daily. 12/16/19 24 Active metoprolol succinate ER (TOPROL-XL) 50 MG 24 hr tabletIndications :Chronic congestive heart failure, unspecified heart failure type (CMS/[facility] HHS/HCC) TAKE 1 TABLET(50 MG) BY MOUTH DAILY 90 tablet 2 01/15/20 24 Active spironolactone (ALDACTONE) 50 MG tabletIndications :Chronic congestive heart failure, unspecified heart failure type ([facility] HHS/HCC) TAKE 1 TABLET(50 MG) BY MOUTH DAILY 90 tablet 01/26/20 24 Active dicyclomine (BENTYL) 10 MG capsuleIndication s:Irritable bowel syndrome, unspecified type TAKE 1 CAPSULE(10 MG) BY MOUTH FOUR TIMES DAILY BEFORE MEALS AND AT NIGHT 240 capsule 1 03/22/20 24 Active traMADol-acetamin ophen (ULTRACET) 37.5-325 MG tabletIndications :Chronic bilateral low back pain without sciatica TAKE 1 TABLET BY MOUTH EVERY 4 HOURS NEEDED FOR CHRONIC PAIN OR PAIN 60 tablet 2 04/05/20 24 Active zolpidem (AMBIEN) 5 MG tabletIndications :Primary insomnia Take 1 tablet (5 mg total) by mouth nightly as needed for Sleep. 90 tablet 2 06/17/19 25 Active LORazepam (ATIVAN) 1 MG tabletIndications :Anxiety TAKE 1 TABLET BY MOUTH EVERY 8 HOURS NEEDED 30 tablet 06/17/19 25 Active potassium chloride CR (K-TAB) 10 MEQ Tab CR tabletIndications :Muscle cramps TAKE 1 TABLET(10 MEQ) BY MOUTH DAILY 90 tablet 1 06/17/19 25 Active omeprazole (PRILOSEC) 40 MG capsuleIndication s:GERD (gastroesophageal reflux disease) TAKE 1 CAPSULE(40 MG) BY MOUTH DAILY 90 capsule 06/21/19 25 Active WEGOVY 0.25 mg/dose injection (PEN) 06/17/19 25 Active ondansetron (ZOFRAN-ODT) 4 MG disintegrating tabletIndications :Nausea Take 1 tablet (4 mg total) by mouth every 6 (six) hours as needed for Nausea. 30 tablet 06/29/19 25 Active dofetilide 125 MCG Cap capsule TAKE 1 CAPSULE BY MOUTH EVERY 12 HOURS 08/03/19 19 2024 Discontinued(T herapy completed) zolpidem (AMBIEN) 5 MG tabletIndications :Primary insomnia TAKE 1 TABLET(5 MG) BY MOUTH EVERY NIGHT NEEDED 90 tablet 2 10/01/19 24 2024 Discontinued(R eorder) potassium chloride CR (K-TAB) 10 MEQ Tab CR tabletIndications :Muscle cramps Take 1 tablet (10 mEq total) by mouth daily. 90 tablet 1 10/21/19 24 2024 Discontinued DULoxetine (CYMBALTA) 30 MG capsuleIndication s:Neuropathy Take 1 capsule (30 mg total) by mouth 2 (two) times daily. 60 capsule 11 02/16/20 24 2024 Discontinued(P t. elected to discontinue med) omeprazole (PRILOSEC) 40 MG capsuleIndication s:GERD (gastroesophageal reflux disease) Take 1 capsule (40 mg total) by mouth daily. 90 capsule 03/24/20 24 2024 Discontinued LORazepam (ATIVAN) 1 MG tabletIndications :Anxiety TAKE 1 TABLET BY MOUTH EVERY 8 HOURS NEEDED 30 tablet 05/19/20 24 2024 Discontinued(R eorder) Active Problems Problem Noted Date Diagnosed Date Elevated triglycerides with high cholesterol Congestive heart failure (CMS/HCC [facility]) 04/18 Cervical radiculopathy 08/09/2022 Bulge of cervical disc without myelopathy 2022 Gastroesophageal reflux dise ase, unspecified whether esophagitis present 12/19/2021 COVID-19 06/08/2021 Degenerative disc disease, lumbar 11/07/2020 Vaginal yeast infection 08/22/2020 Atrial tachycardia ([facility]) 02/23/2020 Anxiety 01/26/2020 High risk medication use 01/26/2020 Vitamin D deficiency 01/26/2020 Vitamin B 12 deficiency 01/26/2020 Acquired hypothyroidism 10/25/2019 Overview (01/20/2020): Last Assessment & Plan: Continue current Levothyroxine dose Recheck TSH in 3 months Encounter for monitoring digoxin therapy 019 Saleem fracture 01/08/2019 Foot swelling 01/08/2019 Left foot pain 01/08/2019 Left thyroid nodule 12/02/2017 Multinodular goiter 12/01/2017 Overview (01/20/2020): Last Assessment & Plan: performed FNA left thyroid Nodule biospy today in clinic Pt. Tolerated procedure well Further plans based on cytology results Last Assessment & Plan: S/p FNA left thyroid Nodule biospy 12/2017 Cytology benign follicular cyst No compressive symptoms Pt denies any compressive symptoms Plan to recheck TSH in 3 months Follow up in 3 months for a repeat thyroid ultrasound check Thyromegaly 11/27/2017 Leg weakness 11/06/2017 Low back pain 11/06/2017 Chronic neck pain 11/06/2017 Numbness of upper extremity 11/06/2017 Peripheral neuropathy 11/06/2017 Hyperglycemia 10/01/2017 Weakness generalized 09/22/2017 Muscle cramps 09/22/2017 Shakiness 09/22/2017 Migraine 09/18/2017 PAF (paroxysmal atrial fibrillation) ([facility] S/HCC) 08/08/2017 Insomnia 07/30/2017 Nausea 07/30/2017 Shortness of breath 07/30/2017 NICM (nonischemic cardiomyopathy) ([facility]/H CC) 04/11/2017 Overview (09/25/2018): Overview: Peripartum CM -- She had a [...] diastolic dysfunction, mild TR, RVSP 30-35 mmHg DCM (dilated cardiomyopathy) ([facility]) 1 06/11/2016 Chronic systolic CHF (conges tive heart failure) ([facility]) 10/29/2016 Disorder of cardiac pacemaker electrode 07/31/19 17 Overview (09/25/2018): Overview: Pacemaker lead malfunction, initial encounter S/P catheter ablation of slow pathway 04/26/2016 Overview (09/25/2018): Overview: AVNRT ablation Implantable defibrillator reprogramming/check Overview (09/25/2018): Overview: [employer] ICD - Unify [employer]ura [id number] SN: [id number] - Implanted 09/19/2014 by UNKNOWN RA: [facility] 1488 SN: [id number] (Implanted 12/30/2003) RV: [facility] 1581 SN: [id number] (Implanted 12/30/2003) LV: [facility] [id number] SN: [id number] (Implanted 08/29/[address] Queen) VT (ventricular tachycardia) ([facility]) 1 VF (ventricular fibrillation) ([facility]) 03/25/2016 Biventricular ICD (implantab le cardioverter-defibrillator) in place 03/25/2016 Overview (11/07/2020): [employer] ICD - [employer] [id number] SN: [id number] - Implanted 09/19/2014 by UNKNOWN RA: [facility] 1488 SN: [id number] (Implanted 12/30/2003) RV: [facility] 1581 SN: [id number] (Implanted 12/30/2003) LV: [facility] [id number] SN: [id number] (Implanted 08/29/[address] Queen) Overview: [employer] ICD - Un[employer] [id number] SN: [id number] - Implanted 09/19/2014 by UNKNOWN RA: [facility] 1488 SN: [id number] (Implanted 12/30/2003) RV: [facility] 1581 SN: [id number] (Implanted 12/30/2003) LV: [facility] [id number] SN: [id number] (Implanted 08/29/[address] Queen) Resolved Problems Problem Noted Date Diagnosed Date Resolved Date Chronic pain of left knee 11/07/2020 Dysuria 08/22/2020 04/18/2023 Exposure to COVID-19 virus 01/26/2020 0 02/18/2020 Stroke-like episode 08/26/2019 06/29/19 25 Need for prophylactic vaccin ation against Streptococcus pneumoniae (pneumococcus) 05/24/2019 02/18/2020 Acute non-recurrent frontal sinusitis 05/24/2019 04/18/2023 Closed displaced fracture of fifth metatarsal bone of left foot with routine healing, subsequent encounter 01/13/2019 06/29/2024 Groin rash 01/08/2019 06/29/2024 Encounters Date Type Department Care Team Description 06/29/2024 1:20 PM PILLOWCASE MAKER Office Visit [facility] [address] [phone] Sandy Hammond FNP Follow Up 06/29/2024 Travel from Last 3 Months Immunizations Name Administration Dates Next Due Dtap (Generic) 09/25/2012 Flucelvax 6 Months+ (Prefilled Syringe) 06/10/19 18 Fluzone (IIV3, Trivalent, 0. 5 ML Prefilled Syringe) 06/29/2024 Fluzone 6 Months+ Quad (0.5 mL Prefilled Syringe) 04/18/2023,08/08/2022,05/20/2019 Fluzone Adult - >Age 3 (Prefilled Syringe) 08/25 Influenza Adult (Generic) 07/07/2021,06/30/2017, 05/09/2016 Pneumococcal (Prevnar 13) 05/20/2019 Tdap (Adacel) 04/18/2023 Tdap (Boostrix) 09/25/2012 Tdap (Generic) 08/15/2016,09/25/2012 Family History Medical History Relation Comments Cancer Brother 1 melanoma Hypertension Brother 1 Cancer Brother 2 Hypertension Brother 2 Hypertension Brother 3 Asthma Daughter Cancer Father bladder Heart Father triple bypass Heart Disease Father Hypertension Father Heart Maternal Grandfather Cancer Maternal Grandmother breast Cancer Mother oral and lung Hypertension Mother Hypertension Sister Asthma Son 1 Asthma Son 2 Relation Status Comments Brother 1 Brother 2 Brother 3 Daughter Father (Age 78) Maternal Grandfather (Age 70) Maternal Grandmother Mother (Age 70) Sister Son 1 Son 2 Social History Tobacco Use Types Packs/Day Years Used Date Smoking Tobacco: Never Passive Smoke Exposure: Past Smokeless Tobacco: Never Tobacco Cessation:Counseling Given: Not Answered Alcohol Use Standard Drinks/Week Comments Not Currently 0 (1 standard drink = 0.6 oz pur e alcohol) 1 drink about every 6 months AUDIT-C Answer Date Recorded Frequency of Alcohol Consumption Monthly or less 09/25/2018 Average Number of Drinks Not on file 019 Frequency of Binge Drinking Not on file 09/07 PHQ-2 Answer Date Recorded Patient Health Questionnaire-2 Score 1 06/29/2024 Comments No Sex and Gender Information Value Date Recorded Sex Assigned at Female 12/30/2023 1:13 PM CDT Legal Sex Female 1:59 PM CDT Gender Identity Female 12/30/2023 1:13 PM CDT Sexual Orientation Not on file Last Filed Vital Signs Vital Sign Reading Time Taken Comments Blood Pressure 108/51 06/29/2024 1:39 PM PILLOWCASE MAKER Pulse 103 06/29/2024 1:39 PM PILLOWCASE MAKER Temperature 37 ??C (98.6 ??F) 06/29/2024 1:39 PM PILLOWCASE MAKER Respiratory Rate 14 06/29/2024 1:39 PM PILLOWCASE MAKER Oxygen Saturation 96% 06/29/2024 1:39 PM PILLOWCASE MAKER Inhaled Oxygen Concentration - - Weight 89 kg (196 lb 3.2 oz) 06/29/2024 1:39 PM PILLOWCASE MAKER Height 162.6 cm (5' 4 ) 06/29/2024 1:39 PM PILLOWCASE MAKER Body Mass Index 33.68 06/29/2024 1:39 PM PILLOWCASE MAKER Plan of Treatment Upcoming Encounters Date Type Department Care Team (Late st Contact Info) Description 07/12/2024 1:00 PM PILLOWCASE MAKER Laboratory Only [facility] - [address] [phone] Sandy Hammond FNP [address] [place] [id number] 08/23/2024 3:00 PM CDT Office Visit [facility] - [address], [address] [place] [address] Macario Han MD [address] [place] [id number] Health Maintenance Due Date Last Done Comments Cervical Cancer Screening Pap Smear (Age 30 to 64) Every 3 Years 1966 Annual Physical 1969 Hepatitis C 1984 Hepatitis B Vaccines (1 of 3 - 19+ 3-dose series) 1985 Cervical Cancer Screening Pap with HPV Testing (Age 30 to 64) Every 5 Years 1996 Mammogram Screening 11/02/2023 11/01/2021 Cervical Cancer Screening with HPV 10/29/2024 Postponed from 1996 (Going to Outside Clinic) Zoster Vaccines (1 of 2) 10/29/2024 Pos tponed from 2016 (Patient Refused) COVID-19 Vaccine ( season) 2025 05/20/2023, 10/26/2021, 09/08/2020, Additional history exists Postponed from 02/08/2024 (Patient Refused) Pneumococcal Vaccine: Pediatrics (0 to 5 Years) and At-Risk Patients (6 to 64 Years) (2 of 2 - PPSV23 or PCV20) 06/29/2025 05/20/2019 Postponed from 07/15/2019 (Patient Refused) Colorectal Cancer Screening Colonoscopy (10 Years) 01/21/2029 01/21/2019, 01/21/2019 DTaP, Tdap and Td Vaccines (6 - Td or Tdap) 04/18/2033 04/18/2023, 08/15/2016, 09/25/2012, Additional history exists Influenza Adult Completed 06/29/2024, 04/09, 08/08/2022, Additional history exists PHQ-2 (Physician Nimitz) Completed 06/29/2024 Meningococcal B Vaccine Aged Out No l onger eligible based on patient's age to complete this topic Meningococcal Vaccine Aged Out No khushi ani eligible based on patient's age to complete this topic RSV Immunizations Under 20 Months Aged Out No longer eligible based on patient's age to complete this topic Procedures Procedure Name Priority Date/Time Associated Diagnosis Comments MAMMOGRAM GENERIC (SCAN ORDER) 11/01/2021 COLONOSCOPY Routine 01/21/2019 11:42 AM CDT from Last 3 Months or Most Recently Relevant to Health Maintenance Results * MAMMOGRAM GENERIC (11/01/2021) Anatomical Region Laterality Modality Other 11/01/2021 Narrative 11/01/2021 Ordered by an unspecified provider. us Documents Scanned SCANNING Final Result from Last 3 Months or Most Recently Relevant to Health Maintenance Insurance Care Teams Director Sterile Processing Relationship Specialty Start Date End Date Sandy Hammond FNP [address] [place] [address] PCP - General NURSE PRACTITIONER 11/19/17
--- OUTSIDE RECORDS SUMMARY | 2024-07-10 15:23 | XMS_ITS | Clinical Summary ---
Author Organization [facility] Address [address], [facility] [address] [place] [address] Phone Care Team Providers Care Table Hand Name Role Phone Sandy Hammond APRN, INCOME TAX ADVISOR Primary Care Provider Jorge Ruano MD Unavailable [phone] Allergies Active Allergy Reactions Criticality Noted Date Comments Penicillins Anaphylaxis,Other (s ee Comments),Rash,Unknown High 09/15/2004 Reaction: Rash, , Reaction: Rash, Medications digoxin (LANOXIN) 125 MCG Tablet 07/10/2018 Active Entresto 24-26 MG Tablet 10/18/2020 Active dofetilide (TIKOSYN) 125 MCG Capsule 08/03/2018 Active metoprolol Succinate (TOPROL-XL) 50 MG TABLET SR 24 HR 09/02/2022 Active potassium chloride CR (KLORCON) 10 MEQ Tablet Controlled Release Take 10 mEq by mouth. 02/21/2023 Active Farxiga 5 MG Tablet 01/24/2022 Active omeprazole (PriLOSEC) 40 MG CAPSULE DELAYED RELEASE 01/18/2016 Active furosemide (LASIX) 80 MG Tablet 03/04/2017 Active spironolactone (ALDACTONE) 50 MG Tablet 02/15/2020 Active levothyroxine (SYNTHROID) 50 MCG Tablet 01/18/2016 Active aspirin 325 MG Tablet Take 325 mg by mouth. Active amitriptyline (ELAVIL) 100 MG Tablet 01/16/2016 Active dicyclomine (BENTYL) 10 MG Capsule Take 10 mg by mouth. 08/08/2022 Active LORazepam (ATIVAN) 1 MG Tablet 02/26/2016 Active zolpidem (AMBIEN) 5 MG Tablet 03/17/2016 Active traMADol (ULTRAM) 50 MG Tablet Take 50 mg by mouth. 03/17/2016 Active Family History Medical History Relation Name Comments Cancer Father Heart Disease Father Cancer Mother oral and lung Hypertension Mother Relation Name Status Comments Brother 1 Alive Brother 2 Alive Child 1 Alive Child 2 Alive Child 3 Alive Child 4 Alive Father Mother Sister Alive Social History Tobacco Use Types Packs/Day Years Used Date Smoking Tobacco: Never Smokeless Tobacco: Never Tobacco Cessation:Counseling Given: No Alcohol Use Standard Drinks/Week Comments Yes 0 (1 standard drink = 0.6 oz pur e alcohol) rarely Comments Unknown Sex and Gender Information Value Date Recorded Sex Assigned at Not on file Legal Sex Female 2:36 PM CDT Gender Identity Not on file Sexual Orientation Not on file Last Filed Vital Signs Vital Sign Reading Time Taken Comments Blood Pressure 124/70 12/08/2023 1:05 PM CDT Pulse 89 12/08/2023 1:05 PM CDT Temperature 36.6 ??C (97.8 ??F) 12/08/2023 1:05 PM CD T Respiratory Rate 18 12/08/2023 1:05 PM CDT Oxygen Saturation 96% 12/08/2023 1:05 PM CDT Inhaled Oxygen Concentration - - Weight 87 kg (191 lb 14.4 oz) 12/08/2023 1:05 PM CDT Height 157.5 cm (5' 2 ) 12/08/2023 1:05 PM CDT Body Mass Index 35.1 12/08/2023 1:05 PM CDT Plan of Treatment Health Maintenance Due Date Last Done Comments Hepatitis C Virus (HCV) Screening 1966 Hepatitis B Immunization (1 of 3 - 19+ 3-dose series) 1985 Pap Smear 11/09/1987 Cervical Cancer Screening (CCS) 1996 HPV/Cotest 1996 Cologuard 2016 Immunochemical Fecal Occult Blood 2016 Mammogram 2016 Zoster Immunization (1 of 2) 2016 Pneumococcal Immunization (50+ years) (2 of 2 - PPSV23) 05/20/2020 05/20/2019 Influenza Immunization (#1) 02/08/202404/09, 08/08/2022, 07/07/2021, Additional history exists SARS-COV-2 Immunization ( season) 2024 05/20/2023, 10/26/2021, 09/08/2020, Additional history exists Colonoscopy 01/21/2029 01/21/2019 Colorectal Cancer Screening 01/21/2029 Respiratory Syncytial Virus (RSV) Immunization (Adult) (1 - 1-dose 75+ series) 2041 01/21/2019 Pneumococcal Immunization Combined Discontinued 05/20/2019 DTaP/Tdap/Td Immunization Discontinued 2022, 08/15/2016, 09/25/2012, Additional history exists TdaP Immunization Completed 04/18/2023, , 09/25/2012 Meningococcal Immunization (ACWY) Aged Out No longer eligible based on patient's age to complete this topic Rotavirus Immunization Aged Out No lo nger eligible based on patient's age to complete this topic Insurance Care Teams Table Hand Relationship Specialty Start Date End Date Sandy Hammond, PICKLE WATER PUMP OPERATOR, INCOME TAX ADVISOR [address] [place], [place] [id number] PCP - General Internal Medicine 09/03/23 Jorge Ruano MD [address] [place] [address] Consulting Physician Oncology 09/03/23
--- OUTSIDE RECORDS SUMMARY | 2024-07-10 15:23 | XMS_ITS | Patient Health Summary ---
Author Organization [facility] Address [address] [address] Care Team Providers Care Post Closing Specialist Name Role Phone Sandy Hammond APRN-ARIANA Primary Care Provider [phone] Note from [facility],non-owned Affiliates and Associated Physician Practices is amultiple site organization consisting of ambulatory clinics and hospital sitesin [place], [place], [place] and [place]. This disclosure is being madepursuant to the Care Everywhere program and may not contain all information available regarding this patient. Last updated 18.[facility] Allergies * Carvedilol * Sacubitril-Valsartan(Weakness) * Atorvastatin(Myalgias) * Penicillins(Anaphylaxis) -High Criticality * Simvastatin(Myalgias) Medications * Be aware that medications may not be up to date on this document. Alwaysverify current medications with the patient. * zolpidem (AMBIEN) 5 MG tablet(Started 03/17/2016) Take 5 mg by mouth once daily * traMADol (ULTRAM) 50 MG tablet(Started 03/17/2016) Take 50 mg by mouth every 4 hours as needed * omeprazole (PRILOSEC) 40 MG capsule(Started 01/18/2016) Take 40 mg by mouth once daily * LORazepam (ATIVAN) 1 MG tablet(Started 02/26/2016) Take 1 mg by mouth once daily as needed * levothyroxine (SYNTHROID) 50 MCG tablet(Started 01/18/2016) Take 50 mcg by mouth once daily * XOPENEX HFA 45 MCG/ACT inhaler(Started 03/13/2016) Inhale 2 Puffs by mouth * amitriptyline (ELAVIL) 100 MG tablet(Started 01/16/2016) Take 100 mg by mouth once daily * aspirin (ASPIRIN) 325 MG tablet Take 325 mg by mouth once daily * potassium chloride SA (MICRO-K) 10 MEQ capsule(Started 02/12/2017) Take 1 Cap by mouth once daily 3 refills remaining * furosemide (LASIX) 80 MG tablet(Started 12/14/2019) TAKE 1 TABLET BY MOUTH EVERY DAY 3 refills by 12/13/2020 * digoxin (LANOXIN) 0.125 MG tablet(Started 12/14/2019) TAKE 2 TABLETS BY MOUTH ON FRIDAY AND FRIDAY THEN TAKE 1 TABLET ON ALL OTHER DAYS 3 refills by 12/13/2020 * spironolactone (ALDACTONE) 50 MG tablet(Started 02/15/2020) TAKE 1 TABLET BY MOUTH EVERY DAY 3 refills by 02/14/2021 * candesartan (ATACAND) 4 MG tablet(Started 02/15/2020) TAKE 1 TABLET BY MOUTH EVERY DAY 3 refills by 02/14/2021 * metoprolol tartrate (LOPRESSOR) 25 MG tablet(Started 05/09/2020) Take 1 tablet by mouth 2 times daily 2 refills by 05/09/2021 * dofetilide (TIKOSYN) 125 MCG capsule(Started 05/09/2020) Take 1 capsule by mouth every 12 hours 1 refill by 05/09/2021 Active Problems Problem Noted Date Diagnosed Date Atrial tachycardia 02/23/2020 Implantable defibrillator reprogramming/check PAF (paroxysmal atrial fibrillation) 08/08/2017 DCM (dilated cardiomyopathy) 04/11/2017 Chronic systolic CHF (congestive heart failure) 10/29/2016 S/P catheter ablation of slow pathway 04/26/2016 NICM (nonischemic cardiomyopathy) 04/26/2016 VT (ventricular tachycardia) 03/25/2016 VF (ventricular fibrillation) 03/25/2016 Biventricular ICD (implantab le cardioverter-defibrillator) in place 03/25/2016 Resolved Problems Problem Noted Date Diagnosed Date Resolved Date Dilated cardiomyopathy 12/03/201801/28 Social History Tobacco Use Types Packs/Day Years [...] Mass Index 34.58 02/22/2020 2:09 PM CDT Procedures * DIGOXIN LEVEL(Performed 12/18/2020) * ICD CLINIC CHECK(Performed 06/19/2020) Performed for DCM (dilated cardiomyopathy) ([facility]), Implantable defibrillator reprogramming/check * ICD CLINIC CHECK(Performed 05/29/2020) Performed for DCM (dilated cardiomyopathy) ([facility]), Biventricular ICD (implantable cardioverter-defibrillator) in place * EKG 12-LEAD(Performed 02/22/2020) Performed for DCM (dilated cardiomyopathy) ([facility]) * ICD CLINIC CHECK(Performed 02/22/2020) Performed for DCM (dilated cardiomyopathy) ([facility]), Implantable defibrillator reprogramming/check * ICD CLINIC CHECK(Performed 11/05/2019) Performed for DCM (dilated cardiomyopathy) ([facility]), ICD (implantable cardioverter- defibrillator), biventricular, in situ * CT BRAIN IMAGE(Performed 08/18/2019) * US CAROTID DUPLEX BILAT(Performed 08/18/2019) * ECHOCARDIOGRAM COMPLETE(Performed 08/18/2019) * RHYTHM STRIP(Performed 08/18/2019) * EKG 12-LEAD(Performed 08/17/2019) * EKG 12-LEAD(Performed 08/17/2019) * RHYTHM STRIP(Performed 08/17/2019) * LAB MISC TEST(Performed 08/17/2019) * XR CHEST 2VW(Performed 08/17/2019) * ICD CLINIC CHECK(Performed 07/22/2019) Performed for DCM (dilated cardiomyopathy) ([facility]), ICD (implantable cardioverter- defibrillator), biventricular, in situ * EKG 12-LEAD(Performed 07/09/2019) Performed for PAF (paroxysmal atrial fibrillation) (HCC), Ventricular tachycardia (HCC), SVT (supraventricular tachycardia) * ICD CLINIC CHECK(Performed 04/07/2019) Performed for DCM (dilated cardiomyopathy) (HCC), Biventricular ICD (implantable cardioverter-defibrillator) in place * ICD CLINIC CHECK(Performed 01/04/2019) Performed for Dilated cardiomyopathy (HCC), Biventricular ICD (implantable cardioverter-defibrillator) in place * ICD CLINIC CHECK(Performed 12/03/2018) Performed for Dilated cardiomyopathy (HCC), Implantable defibrillator reprogramming/check * EKG 12-LEAD(Performed 12/03/2018) Performed for VF (ventricular fibrillation) (HCC), Chronic systolic CHF (congestive heart failure) (HCC), PAF (paroxysmal atrial fibrillation) (HCC) * LAB MISC TEST(Performed 10/02/2018) * LAB MISC TEST(Performed 10/02/2018) * ICD CLINIC CHECK(Performed 08/05/2018) Performed for DCM (dilated cardiomyopathy) (HCC), Biventricular ICD (implantable cardioverter-defibrillator) in place * EKG 12-LEAD(Performed 05/04/2018) Performed for Ventricular tachycardia (HCC), VF (ventricular fibrillation) (HCC) * ICD CLINIC CHECK(Performed 05/04/2018) Performed for Dilated cardiomyopathy (HCC), Implantable defibrillator reprogramming/check * ICD CLINIC CHECK(Performed 01/29/2018) Performed for NICM (nonischemic cardiomyopathy) (HCC), Implantable defibrillator reprogramming/check * ICD CLINIC CHECK(Performed 01/27/2018) Performed for NICM (nonischemic cardiomyopathy) (HCC), Biventricular ICD (implantable cardioverter-defibrillator) in place * ECHOCARDIOGRAM 2D WITH DOPPLER(Performed 01/21/2018) Performed for Ventricular tachycardia (HCC), DCM (dilated cardiomyopathy) (HCC), VF (ventricular fibrillation) (HCC), NICM (nonischemic cardiomyopathy) (HCC), Chronic systolic CHF (congestive heart failure) (HCC) * ICD CLINIC CHECK(Performed 11/14/2017) Performed for NICM (nonischemic cardiomyopathy) (HCC), Biventricular ICD (implantable cardioverter-defibrillator) in place * EKG 12-LEAD(Performed 10/30/2017) Performed for Ventricular tachycardia (HCC), VF (ventricular fibrillation) (HCC), PAF (paroxysmal atrial fibrillation) (HCC) * LAB MISC TEST(Performed 08/18/2017) * LAB MISC TEST(Performed 08/18/2017) * LAB MISC TEST(Performed 08/18/2017) * LAB MISC TEST(Performed 08/18/2017) * LAB MISC TEST(Performed 08/18/2017) * LAB MISC TEST(Performed 08/18/2017) * ICD CLINIC CHECK(Performed 08/07/2017) Performed for NICM (nonischemic cardiomyopathy) (HCC), Biventricular ICD (implantable cardioverter-defibrillator) in place * BASIC METABOLIC PANEL (CALCIUM TOTAL)(Performed 06/24/2017) * ICD CLINIC CHECK(Performed 04/23/2017) Performed for NICM (nonischemic cardiomyopathy) (HCC), Biventricular ICD (implantable cardioverter-defibrillator) in place * EKG 12-LEAD(Performed 04/11/2017) Performed for Ventricular tachycardia (HCC), VF (ventricular fibrillation) (HCC), Biventricular ICD(implantable cardioverter-defibrillator) in place * ICD CLINIC CHECK(Performed 01/16/2017) Performed for NICM (nonischemic cardiomyopathy) (HCC), Biventricular ICD (implantable cardioverter-defibrillator) in place * ECHOCARDIOGRAM 2D WITH DOPPLER(Performed 10/29/2016) Performed for Biventricular ICD (implantable cardioverter-defibrillator) in place, VF (ventricular fibrillation) (HCC), Ventricular tachycardia (HCC), NICM (nonischemic cardiomyopathy) (HCC) * ICD CLINIC CHECK(Performed 10/07/2016) Performed for VF (ventricular fibrillation) (HCC), Encounter for implantable defibrillator reprogramming or check * EKG 12-LEAD(Performed 10/07/2016) Performed for Ventricular tachycardia (HCC), VF (ventricular fibrillation) (HCC), Biventricular ICD(implantable cardioverter-defibrillator) in place * IMPLANT ICD(Performed 08/28/2016) Performed for DCM (dilated cardiomyopathy) (HCC), LBBB (left bundle branch block), CHF (congestive heart failure), NYHA class III, chronic, systolic (HCC) * BASIC METABOLIC PANEL (CALCIUM TOTAL)(Performed 08/07/2016) Performed for Ventricular tachycardia (HCC), VF (ventricular fibrillation) (HCC), Encounter for long-term (current) use of medications * ECHOCARDIOGRAM 2D WITH DOPPLER(Performed 07/19/2016) Performed for Ventricular tachycardia (HCC), VF (ventricular fibrillation) (HCC), Biventricular ICD(implantable cardioverter-defibrillator) in place, DCM (dilated cardiomyopathy) (HCC) * EKG 12-LEAD(Performed 07/17/2016) Performed for Ventricular tachycardia (HCC), VF (ventricular fibrillation) (HCC), Biventricular ICD(implantable cardioverter-defibrillator) in place * EKG 12-LEAD(Performed 07/12/2016) * ICD CLINIC CHECK(Performed 07/10/2016) Performed for NICM (nonischemic cardiomyopathy) (HCC), Encounter for implantable defibrillator reprogramming or check * EKG 12-LEAD(Performed 04/26/2016) Performed for Ventricular tachycardia (HCC), VF (ventricular fibrillation) (HCC), Cardiac defibrillator in situ * EKG 12-LEAD(Performed 03/25/2016) Performed for Ventricular tachycardia (HCC), VF (ventricular fibrillation) (HCC), Cardiac defibrillator in situ * ICD CLINIC CHECK(Performed 03/25/2016) Performed for Cardiomyopathy (HCC), Encounter for implantable defibrillator reprogramming or check * EKG 12-LEAD(Performed 10/10/2015) * EP STUDY W ABLATION(Performed 09/18/2015) * ABLATION(Performed 09/18/2015) Results * (ABNORMAL) DIGOXIN LEVEL (12/18/2020 12:17 PM CDT) Digoxin 0.5(L) 0.8 - 2.0 mcg/L Hartman Wright Comment: DOMINIQUE Anti-Digoxin (Digibind(R)) in serum/plasma of patients under toxicity therapy may interfere with the digoxin immunoassay. REPORT COMMENT: NO SCAN OF HAS PHOTO FASTING:NO Test Performed at: [facility] [address] ??[phone] ROGELIO LICONA DO,MPH 12/18/2020 12:1 7 PM CDT 12/18/2020 12:18 PM CDT Joe Markham MD LAB - CHEMISTRY BREANNA PAULA [facility] [address] [place] [address] * ICD CLINIC CHECK (06/19/2020 7:48 AM GEOTECHNICAL FIELD TECHNICIAN) Only the most recent of19 resultswithin the time period is included. Narrative Soumya Goldberg - 06/19/2020 7:48 AM GEOTECHNICAL FIELD TECHNICIAN GoldbergSoumya ? 06/19/2020 ??7:50 AM See scan for Parameters, Rate histograms, and EGMs. Bucky Alexander MD CARDIAC SERVICES ORD ERABLES * EKG 12-LEAD (02/22/2020 3:57 PM CDT) Only the most recent of14 resultswithin the time period is included. Narrative Yelitza Bauman - 02/22/2020 3:57 PM CDT Jesica Saleem ? 02/22/2020 ??3:58 PM See Scan Procedure Note Jesica Saleem - 02/22/2020 3:57 PM CDT See Scan Bucky Alexander MD ECG ORDERABLES * US CAROTID DUPLEX BILAT (08/18/2019) Anatomical Region Laterality Modality Other Historical Provider VASCULAR LAB ORDE RABLES * RHYTHM STRIP (08/18/2019) Only the most recent of2 resultswithin the time period is included. Historical Provider CARDIAC SERVICES ORDERABLES * CT BRAIN IMAGE (08/18/2019) Anatomical Region Laterality Modality Other Historical Provider IMAGING * ECHOCARDIOGRAM COMPLETE (08/18/2019) Historical Provider ECHO ORDERABLES * LAB MISC TEST (08/17/2019) Only the most recent of9 resultswithin the time period is included. Blood BLOOD SPECIMEN / Unknown Historical Provider LAB SEND OUT * XR CHEST 2VW (08/17/2019) Anatomical Region Laterality Modality Chest Other Historical Provider DIAGNOSTIC IMAGIN G ORDERABLES * ECHOCARDIOGRAM 2D WITH DOPPLER (01/21/2018 12:27 PM CDT) Only the most recent of3 resultswithin the time period is included. Narrative Amelia Shin RD - 01/21/2018 12:27 PM CDT Shin AmeliaREYES malik ? 01/21/2018 12:27 PM See scan Joe Markham MD ECHO ORDERABLES * BASIC METABOLIC PANEL (CALCIUM TOTAL) (06/24/2017 1:54 PM GEOTECHNICAL FIELD TECHNICIAN) Only the most recent of2 resultswithin the time period is included. Glucose 96 65 - 99 mg/dL [facility] Comment: ? Fasting reference interval BUN 19 7 - 25 mg/dL [facility] Creatinine 0.95 0.50 - 1.05 mg/dL [facility] Comment: For patients >49 years of age, the reference limit for Creatinine is approximately 13% higher for people identified as -Burmese. eGFR by MDRD 70 > OR = [...] 10.4 mg/dL [facility] Comment: Test Performed at: [facility] [id number] [place], [place] ??[phone] ROGELIO LICONA DO,MPH 06/24/2017 1:54 PM GEOTECHNICAL FIELD TECHNICIAN 06/24/2017 1:55 PM GEOTECHNICAL FIELD TECHNICIAN Bucky Alexander MD LAB - CHEMISTRY BREANNA PAULA [facility] Organization Address City/State/ZIP Co de Phone Number [facility] [phone] [place] [address] * IMPLANT ICD (08/28/2016) uBcky Alexander MD ELECTROPHYSIOLOGY OR DERABLES * EP STUDY W ABLATION (09/18/2015) Historical Provider ELECTROPHYSIOLOGY ORDERABLES * ABLATION (09/18/2015) Historical Provider CARDIAC SERVICES ORDERABLES Care Teams Post Closing Specialist Relationship Specialty Start Date End Date Sandy Hammond APRN-ARIANA [address] [place] [address] PCP - General 11/20/21
--- OUTSIDE RECORDS SUMMARY | 2024-07-10 15:23 | XMS_ITS | Clinical Summary ---
Author Organization [facility] Address [address] [place] [address] Care Team Providers Care Hook Puller Name Role Phone Sandy Hammond NP Primary Care Provider [phone] Rashi MONACO MD, Joe Marks Unavailable [phone] Bucky Alexander MD Unavailable [phone] Allergies Active Allergy Reactions Criticality Noted Date Comments Atorvastatin Unknown,Muscle pain Medium 03/25/2016 Penicillins Rash,Other (See comments),Anaphylaxi s High 03/25/2016 Reaction: Rash, , Reaction: Rash, Simvastatin Unknown,Muscle pain Medium 03/25/2016 Ngrdsaq-Cdg-Iyh Reductase Inhibitors Other (See comments) Reaction: Muscle [...] to Rashaun. Aware that I will call/send [employer] results letter once rec'd. If she's not [...] FNA cytology results PAF (paroxysmal atrial fibrillation) ([facility]) 0 08/08/2017 Chronic systolic CHF (congestive heart failure) ([facility]) 10/29/2016 Disorder of cardiac pacemaker electrode 07/31/19 17 Overview (09/12/2016): Pacemaker lead malfunction, initial encounter NICM (nonischemic cardiomyopathy) ([facility]) 04/09 Overview (09/29/2020): Peripartum CM -- She [...] (09/29/2020): Overview: [facility] ICD - [facility] [id number] SN: [id number] - Implanted 09/19/2014 by UNKNOWN RA: SJM [id number] SN: [id number] (Implanted 12/30/2003) RV: SJM 1581 SN: [id number] (Implanted 12/30/2003) LV: [facility] [id number] SN: [id number] (Implanted 08/29/[address] Queen) Implantable defibrillator reprogramming/check Overview (09/29/2020): [facility] ICD - Unify Cailin [id number] SN: [id number] - Implanted 09/19/2014 by UNKNOWN RA: SJM 1488 SN: [id number] (Implanted 12/30/2003) RV: SJM 1581 SN: [id number] (Implanted 12/30/2003) LV: [facility] [id number] SN: [id number] (Implanted 08/29/[address] Queen) Ventricular tachycardia 03/25/2016 Surgical History Surgery Date Site/Laterality Comments TONSILLECTOMY Tonsillectomy OTHER SURGICAL HISTORY urethrotomy OTHER SURGICAL HISTORY AICD/Pacemaker OTHER SURGICAL HISTORY redo AICD '09, 15 OTHER SURGICAL HISTORY broken elbow: repair broken elbow IR FINE NEEDLE ASPIRATION W IMAGE GUIDANCE 12/22/2017 N/A Medical History Medical History Date Comments Asthma Asthma; Comments : [facility] 07/31/2016 - Gastroesophageal reflux disease GERD Disorder of thyroid Thyroid dise ase Hypercholesterolemia High choles terol; Comments: [facility] 07/31/2016 - Hx Other Medical post car diomyopathy; Comments: [facility] 07/31/2016 - Hx Other Medical broken elbow; C omments: [facility] 07/31/2016 - CHF (congestive heart failur e), NYHA class I, chronic, systolic (HCC) VT (ventricular tachycardia) (HCC) VF (ventricular fibrillation) (CMS/HCC) (HCC) SVT (supraventricular tachycardia) (HCC) s/p ablation Thyroid nodule Family History Medical History Relation Name Comments Cancer Brother Cancer, unknown ; Cardiomyopathy Father Coronary artery disease Father Asha nary artery disease; Hypertension Father Hypertension; Cancer Mother Cancer, unknown ; Hypertension Sister Hypertension; Relation Name Status Comments Brother Father Mother Sister Social History Tobacco Use Types Packs/Day Years [...] on file Legal Sex Female 4:23 AM INCINERATOR OPERATOR Gender Identity Not on file Sexual Orientation Not on file Obstetrics History Last Filed Vital Signs Vital Sign Reading [...] 01/26/2024 3:52 PM CDT Plan of Treatment Health Maintenance Due Date Last Done Comments Breast Cancer Screening-Mammogram 1966 Cervical Cancer Screening 1966 Colon Cancer Screening-Colonoscopy 1966 Hepatitis C Screening 1966 Hepatitis B Screening 1984 Regular Well Visit/Exam 18-64 1984 Zoster Vaccine (1 of 2) 2016 Pneumococcal vaccine <65 (2 of 2 - PPSV23 or PCV20) 07/15/2019 05/20/2019 Influenza Vaccine (#1) 2024 , 08/08/2022, 07/07/2021, Additional history exists Depression Screening 01/25/2025 01/26/2024, 12/31/2021, 01/01/2021, Additional history exists DTaP/Tdap/Td Vaccine (5 - Td or Tdap) 04/18/2033 04/18/2023, 08/15/2016, 09/25/2012, Additional history [place] [address] [place] [address] [facility] CLAIMS [facility] CLAIMS [facility] CLAIMS Advance Directives For more information, please contact: [phone] * Full Code (Latest Code Status on File) Date Activated Date Inactivated Comments 08/18/2017 8:35 AM 08/20/2017 3:34 PM Care Teams Hook Puller Relationship Specialty Start Date End Date Sandy Hammond NP [address] [place] [id number] PCP - General Nurse Practitioner 10/26/18 Joe Markham III, MD [address] [facility] [address] [place] [address] Referring Physician Cardiology 09/29/20 Bucky Alexander MD [address] [facility] [address] [place] [address] Elevator Repairer Apprentice Electrophysiology 10/17/20
--- OUTSIDE RECORDS SUMMARY | 2024-07-10 15:23 | XMS_ITS | Encounter Summary ---
Author Organization [facility] Address [address] [place] [address]. [place], [place] [id number] [place] [address] Care Team Providers Care Gun Perforator Name Role Phone Sandy Hammond Primary Care Provider [phone] Encounter Details Date Type Department Care Team (Late st Contact Info) Description 06/08/2021 Crack Message Enc [facility] Family & Internal Medicine [id number] [place] [address] Sandy Hammond FNP [facility] [place], [place] [id number] Update Social History Tobacco Use Types Packs/Day Years [...] st Contact Info) Description 07/12/2024 1:00 PM ADMISSIONS CLINICIAN Laboratory Only [facility] Medical [facility] Family & Internal Medicine - [id number] [place] [address] Sandy Hammond FNP [address] [place] [address] 08/23/2024 3:00 PM CDT Office Visit [facility] [address] [facility] [address], [address] [place] [id number] Macario Han MD [address] [place] [address] documented as of this encounter Visit Diagnoses Not on filedocumented in this encounter Additional Health Concerns Infection Onset Date Last Indicated Resolved Time COVID-19 Rule Out 06/07/2021 06/07/2021 06/14/2021 12:32 AM ADMISSIONS CLINICIAN COVID-19 Rule Out 12/13/2021 12/13/2021 12/13/2021 4:48 PM CDT COVID-19 Rule Out 12/13/2021 12/13/2021 12/14/2021 4:35 PM CDT COVID-19 Rule Out 06/27/2022 06/27/2022 06/28/2022 1:09 PM ADMISSIONS CLINICIAN Assessment Noted Time PHQ-9 Depression Total Score: 3 11/08/19 21 1:12 PM CDT documented as of this encounter Care Teams Gun Perforator Relationship Specialty Start Date End Date Sandy Hammond FNP [address] [place] [address] PCP - General NURSE PRACTITIONER 11/19/17 documented as of this encounter
--- OUTSIDE RECORDS SUMMARY | 2024-07-10 15:23 | XMS_ITS | Referral Summary ---
Author Organization [facility] Address [address] [place] [address] Care Team Providers Care Corporate Development Manager Name Role Phone Manish Sandy FTIZPATRICK-ARIANA Primary Care Provider [phone] Source Comments [facility],non-owned Affiliates and Associated Physician Practices is amultiple site organization consisting of ambulatory clinics and hospital sitesin [place], [place], [place] and [place]. This disclosure is being madepursuant to the Care Everywhere program and may not contain all information available regarding this patient. Last updated 18.[facility] Allergies Active Allergy Reactions Criticality Noted Date [...] (09/03/2016): [facility] ICD - Unify Cailin [id number] SN: [id number] - Implanted 09/19/2014 by UNKNOWN RA: [facility] 1488 SN: [id number] (Implanted 12/30/2003) RV: [facility] 1581 SN: [id number] (Implanted 12/30/2003) LV: [facility] [id number] SN: [id number] (Implanted 08/29/[address] Queen) Resolved Problems [...] 02/22/2020 2:09 PM CDT Plan of Treatment Not on file Procedures Procedure Name Priority Date/Time Associated Diagnosis Comments BASIC METABOLIC PANEL (CALCIUM TOTAL) 06/24/2017 1:54 PM NEGATIVE CUTTER from Last 3 Months or Most Recently Relevant to Health Maintenance Results * BASIC METABOLIC PANEL (CALCIUM TOTAL) (06/24/2017 1:54 PM NEGATIVE CUTTER) Glucose 96 65 - 99 mg/dL [facility] Comment: ? Fasting reference interval BUN 19 7 - 25 mg/dL [facility] Creatinine 0.95 0.50 - 1.05 mg/dL [facility] Comment: For patients >49 years of age, the reference limit for Creatinine is approximately 13% higher for people identified as -Gambian. eGFR by MDRD 70 > OR = [...] 10.4 mg/dL [facility] Comment: Test Performed at: [facility] [id number] [place], [place] ??[phone] ROGELIO LICONA DO,MPH 06/24/2017 1:54 PM NEGATIVE CUTTER 06/24/2017 1:55 PM NEGATIVE CUTTER Bucky Alexander MD LAB - CHEMISTRY BREANNA PAULA [facility] Organization Address City/State/ZIP Co de Phone Number [facility] [phone] [place] [address] from Last 3 Months or Most Recently Relevant to Health Maintenance Care Teams Corporate Development Manager Relationship Specialty Start Date End Date Sandy Hammond APRN-ARIANA [address] [place] [address] PCP - General 11/20/21
[2024-07-10 15:36] VITALS: BP 104/62; PULSE 108; RESP 14; O2SAT 99
--- NOTE | 2024-07-10 15:44 | ED.ABDPAIN ---
HPI - Abdominal Pain General Chief Complaint: Abdominal Pain Stated Complaint: constipated Time Seen by Provider: 07/10/24 15:36 Source: patient and family Mode of arrival: ambulatory Limitations: no limitations History of Present Illness HPI narrative: 58 YEARS OLD WHITE FEMALE WITH HISTORY OF CARDIOMYOPATHY, CONGESTIVE HEART FAILURE, HYPERTENSION, HYPOTHYROIDISM STARTED ON WEGOY 1 WEEK AGO 1 DAY LATER STARTED HAVING ABDOMINAL PRESSURE, NAUSEA, TROUBLE HAVING BOWEL MOVEMENT, POOR APPETITE FOR THE LAST 6 DAYS. SHE DENIES ANY FEVER, CHILLS, CHEST PAIN, SHORTNESS OF BREATH OR RADIATION OF PAIN Related Data Home Medications ?Medication ?Instructions ?Recorded ?Confirmed ?Last Taken ?Type amitriptyline 100 mg tablet 100 mg PO HS 08/18/19 11/06/21 08/17/19 20:00 History aspirin 325 mg tablet 325 mg PO HS 08/18/19 11/14/21 11/12/21 History digoxin 125 mcg (0.125 mg) tablet 125 mcg PO DAILY 08/18/19 11/14/21 11/14/21 History dofetilide 125 mcg capsule 125 mcg PO Q12H 08/18/19 11/14/21 11/14/21 History furosemide 80 mg tablet 80 mg PO HS 08/18/19 11/06/21 Unknown History levothyroxine 50 mcg tablet 50 mcg PO DAILY 08/18/19 11/14/21 11/14/21 History lorazepam 1 mg tablet 1 mg PO Q8H PRN Anxiety 08/18/19 11/06/21 08/17/19 20:00 History omeprazole 40 mg capsule,delayed 40 mg PO HS 08/18/19 11/06/21 Unknown History release potassium chloride 10 mEq 10 meq PO HS 08/18/19 11/06/21 Unknown History tablet,extended release spironolactone 50 mg tablet 50 mg PO HS 08/18/19 11/06/21 Unknown History tramadol 37.5 mg-acetaminophen 325 1 tablet PO Q4H PRN Pain 08/18/19 11/06/21 Unknown History mg tablet zolpidem 5 mg tablet 5 mg PO HS PRN Sleep 08/18/19 11/06/21 Unknown History empagliflozin 10 mg tablet 1 tablet PO DAILY 11/06/21 11/06/21 Unknown History (Jardiance) levalbuterol tartrate 45 2 inh inhalation PRN PRN Shortness 11/06/21 11/06/21 Unknown History mcg/actuation aerosol inhaler Of Breath metoprolol succinate 50 mg 50 tablet PO HS 11/06/21 11/14/21 11/13/21 History tablet,extended release 24 hr sacubitril 24 mg-valsartan 26 mg 1 tablet PO BID 11/06/21 11/06/21 Unknown History tablet (Entresto) Allergies Allergy/AdvReac Type Severity Reaction Status Date / Time adhesive Allergy Unknown Redness of Verified 07/10/24 15:21 Skin mushroom Allergy Unknown Hives Verified 07/10/24 15:21 Penicillins Allergy Unknown Rash Verified 07/10/24 15:21 Review of Systems Review of Systems: All systems reviewed & are unremarkable except as noted in HPI and below PMFSH Past Medical History Medical History Obesity Asthma CHF (congestive heart failure) Cardiomyopathy Atrial fibrillation Pacemaker pm/aicd Thyroid nodule Hypothyroidism Migraines Anxiety SVT (supraventricular tachycardia) cardiomyopathy Surgical History Surgical History History of tonsillectomy History of thoracic surgery History of cardiac radiofrequency ablation Family History Family History Father Hypertension Cancer Heart disease Mother Hypertension Cancer Sibling Hypertension Social History Social History Social History: Patient is . She is a full code. She has never smoked. No alcohol use. 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 Gender identity (if verbalized by the patient): Female Spiritual care concerns: No Agree to blood products: Yes Exam Narrative: GENERAL APPEARANCE: WELL-DEVELOPED, WELL-NOURISHED SKIN: NORMAL COLOR HEAD: NORMOCEPHALIC, NONTRAUMATIC EYES: CLEAR CONJUNCTIVA ENT: OROPHARYNX NORMAL, EARS NORMAL, NOSE NORMAL NECK: SUPPLE, NONTENDER CHEST AND RESPIRATORY: AIRWAY PATENT, NO RESPIRATORY DISTRESS, NO ACCESSORY MUSCLE USE HEART: REGULAR RATE/RHYTHM ABDOMEN: SOFT, NONTENDER, NO ORGANOMEGALY, QUIET BOWEL SOUNDS VASCULAR: NORMAL PERIPHERAL PULSES, NORMAL CAPILLARY REFILL. MUSCULOSKELETAL: NORMAL RANGE OF MOTION, NONTENDER BACK NEUROLOGIC: ALERT AND ORIENTED ?3, ELECTROMEDICAL EQUIPMENT REPAIRER IS NORMAL TESTED, NO GROSS MOTOR DEFICIT Course Vital Signs Vital signs: Vital Signs Temperature 36.6 C 07/10/24 15:23 Pulse Rate 106 H 07/10/24 15:23 Respiratory Rate 16 07/10/24 15:23 Blood Pressure 118/67 07/10/24 15:23 Pulse Oximetry 98 07/10/24 15:23 Oxygen Delivery Room Air 07/10/24 15:23 Temperature 36.6 C 07/10/24 15:23 Pulse Rate 95 07/10/24 16:40 Respiratory Rate 17 07/10/24 16:40 Blood Pressure 104/61 07/10/24 16:40 Pulse Oximetry 95 07/10/24 16:40 Oxygen Delivery Room Air 07/10/24 15:23 MDM - Abdominal Pain MDM Narrative Medical decision making narrative: PATIENT PRESENTS WITH ABDOMINAL PRESSURE AND POSSIBLE CONSTIPATION 1 DAY AFTER STARTING ON WEGOVY VITAL SIGNS SHOWING HEART RATE OF 106 PHYSICAL EXAMINATION INSIGNIFICANT DIFFERENTIAL DIAGNOSIS WE GO THE SIDE EFFECTS, CONSTIPATION, COLITIS, DIVERTICULITIS, ANXIETY LIKE SYMPTOMS BLOOD WORKUP TODAY INCLUDES CBC, CMP, LIPASE SHOWED insignificant abnormality URINALYSIS SHOWED no evidence of infection CT ABDOMEN AND PELVIS WITH IV CONTRAST SHOWED Mild esophagitis/gastritis. Indeterminate left midpole lesions, recommend nonemergent but timely MR without and with contrast for further characterization. Wegovy side effect is my concern My recommendation to stop using that medicine and to discuss with the family physician for alternative. Discharged on Protonix, and Zofran as needed. Differential Diagnosis Differential diagnosis: Likely other ( ABOVE) Medical Records Attestation: I reviewed the patient's medical records. Lab Data Attestation: I reviewed the patient's lab results. 07/10/24 16:07 07/10/24 16:16 Labs: Lab Results 07/10/24 07/10/24 07/10/24 Range/Units 16:07 16:16 16:37 WBC 8.3 (4.5-10.0) K/mm3 RBC 4.35 (4.2-5.4) M/mm3 Hgb 13.7 (12.0-15.0) g/dL Hct 41.2 (37.0-47.0) % MCV 94.7 (80-100) fl MCH 31.5 (26-34) pg MCHC 33.3 (32-36) g/dl RDW 13.2 (11.5-14.5) % Plt Count 187 (150-375) k/mm3 MPV 11.1 H (7.4-10.4) fl Immature Gran % (Auto) 0.2 (0-0.5) % Neut % (Auto) 72.6 (45.5-73.1) % Lymph % (Auto) 17.6 L (18.3-44.2) % Monona % (Auto) 6.3 (2.6-8.5) % Eos % (Auto) 2.6 (0-4.4) % Baso % (Auto) 0.7 (0.2-1.2) % Lymph # (Auto) 1.46 (0.9-3.2) K/mm3 Monona # (Auto) 0.5 (0.1-0.6) K/mm3 Eos # (Auto) 0.2 (0-0.3) K/mm3 Baso # (Auto) 0.1 (0.0-0.1) K/mm3 Abs Immat Gran (auto) 0.02 (0.00-0.031) K/mm3 Absolute Neuts (auto) 6.0 (1.3-6.7) K/mm3 Absolute Nucleated RBC 0.000 (0.0-0.012) K/mm3 Nucleated RBC % 0.0 (0.0-0.2) % Sodium 137 (137-145) mmol/L Potassium 3.9 (3.4-5.0) mmol/L Chloride 102 (98-107) mmol/L Carbon Dioxide 27 (22-30) mmol/L Anion Gap 8 (4-12) mmol/L BUN 20 H (7-17) mg/dL Creatinine 0.97 1.20 (0.7-1.0) mg/dL Estim Creat Clear Calc 58 47 ml/min Estimated GFR 59 46 L (59 - ) Glucose 94 (65-110) mg/dL Calcium 9.9 (8.4-10.2) mg/dL Total Bilirubin 0.9 (0.2-1.3) mg/dL AST 25 (14-36) U/L ALT 30 (6-35) U/L Alkaline Phosphatase 77 (38-126) U/L Total Protein 7.0 (6.3-8.2) g/dL Albumin 4.3 (3.5-5.1) g/dL Lipase 48 (23-300) U/L Urine Color Yellow (Yellow) Urine Appearance Clear (Clear) Urine pH 7.0 (5.0-9.0) Ur Specific Vance 1.024 (1.001-1.035) Urine Protein Negative (Negative) mg/dL Urine Glucose (UA) 1+ H (Negative) mg/dL Urine Ketones Negative (Negative) mg/dL Ur Blood (Man) Negative (Negative) Urine Nitrate Negative (Negative) Urine Bilirubin Negative (Negative) Urine Urobilinogen 0.2 (<2.0) mg/dL Leukocyte Esterase Rfl Negative (Negative) ROBERT/UL POC Urine HCG, Qual (Negative) 07/10/24 Range/Units 16:41 WBC (4.5-10.0) K/mm3 RBC (4.2-5.4) M/mm3 Hgb (12.0-15.0) g/dL Hct (37.0-47.0) % MCV (80-100) fl MCH (26-34) pg MCHC (32-36) g/dl RDW (11.5-14.5) % Plt Count (150-375) k/mm3 MPV (7.4-10.4) fl Immature Gran % (Auto) (0-0.5) % Neut % (Auto) (45.5-73.1) % Lymph % (Auto) (18.3-44.2) % Monona % (Auto) (2.6-8.5) % Eos % (Auto) (0-4.4) % Baso % (Auto) (0.2-1.2) % Lymph # (Auto) (0.9-3.2) K/mm3 Monona # (Auto) (0.1-0.6) K/mm3 Eos # (Auto) (0-0.3) K/mm3 Baso # (Auto) (0.0-0.1) K/mm3 Abs Immat Gran (auto) (0.00-0.031) K/mm3 Absolute Neuts (auto) (1.3-6.7) K/mm3 Absolute Nucleated RBC (0.0-0.012) K/mm3 Nucleated RBC % (0.0-0.2) % Sodium (137-145) mmol/L Potassium (3.4-5.0) mmol/L Chloride (98-107) mmol/L Carbon Dioxide (22-30) mmol/L Anion Gap (4-12) mmol/L BUN (7-17) mg/dL Creatinine (0.7-1.0) mg/dL Estim Creat Clear Calc ml/min Estimated GFR (59 - ) Glucose (65-110) mg/dL Calcium (8.4-10.2) mg/dL Total Bilirubin (0.2-1.3) mg/dL AST (14-36) U/L ALT (6-35) U/L Alkaline Phosphatase (38-126) U/L Total Protein (6.3-8.2) g/dL Albumin (3.5-5.1) g/dL Lipase (23-300) U/L Urine Color (Yellow) Urine Appearance (Clear) Urine pH (5.0-9.0) Ur Specific Vance (1.001-1.035) Urine Protein (Negative) mg/dL Urine Glucose (UA) (Negative) mg/dL Urine Ketones (Negative) mg/dL Ur Blood (Man) (Negative) Urine Nitrate (Negative) Urine Bilirubin (Negative) Urine Urobilinogen (<2.0) mg/dL Leukocyte Esterase Rfl (Negative) ROBERT/UL POC Urine HCG, Qual Negative (Negative) Imaging Data Radiologist's impression: ITS Impressions Abdomen/Pelvis CT 07/10/24 16:36 IMPRESSION: Mild esophagitis/gastritis. Indeterminate left midpole lesions, recommend nonemergent but timely MR without and with contrast for further characterization. Critical Care Time Critical Care Time Critical Care Time: No Discharge Plan Discharge Clinical Impression: Drug side effects, Esophagitis Patient Disposition: Home, Self-Care Condition: Stable Instructions: Abdominal Pain (ED), Esophagitis (ED) Additional Instructions: Return if symptoms are worsening , call your family physician for appointment, take Tylenol as as needed for aches and pain, continue home medications. Workup today showed that you have left kidney lesions, non Urgent MRI with and without contrast within the next 2-4 weeks for further evaluation is recommended. Increase omeprazole to 40 mg twice a day Wegovy side effects include nausea, vomiting, abdominal pain, constipation, decreased appetite, headache, fatigue, dyspepsia, abdominal distension, flocculence, GERD and hypoglycemia Patient Language: Citizen Of [place] Prescriptions: No Action tramadol-acetaminophen 37.5-325 mg Tablet 1 tablet PO Q4H PRN (Reason: Pain) dofetilide 125 mcg Capsule 125 mcg PO Q12H potassium chloride 10 mEq Tablet Extended Release 10 meq PO HS omeprazole 40 mg Capsule,Delayed Release(Dr/Ec) 40 mg PO HS furosemide 80 mg Tablet 80 mg PO HS levothyroxine 50 mcg Tablet 50 mcg PO DAILY digoxin 125 mcg (0.125 mg) Tablet 125 mcg PO DAILY Rx Instructions: 2 tabs by mouth friday and friday and take 1 tab on all other days. zolpidem 5 mg Tablet 5 mg PO HS PRN (Reason: Sleep) lorazepam 1 mg Tablet 1 mg PO Q8H PRN (Reason: Anxiety) amitriptyline 100 mg Tablet 100 mg PO HS spironolactone 50 mg Tablet 50 mg PO HS aspirin 325 mg Tablet 325 mg PO HS metoprolol succinate 50 mg tablet extended release 24 hr 50 tablet PO HS Jardiance 10 mg tablet 1 tablet PO DAILY Entresto 24-26 mg tablet 1 tablet PO BID levalbuterol tartrate 45 mcg/actuation HFA aerosol inhaler 2 inh INHALATION PRN PRN (Reason: Shortness Of Breath) hydrocodone-acetaminophen 5-325 mg tablet 1 tablet PO Q6H PRN (Reason: pain) Qty: 20 0RF Follow-up/Referrals: ORTEGA,AMARI FIGUEROA [Primary Care Provider] -
--- OUTSIDE RECORDS SUMMARY | 2024-07-10 15:44 | XMS_ITS | Clinical Summary ---
Author Organization [facility] Address [address] [place] [address] Care Team Providers Care Counter Person Name Role Phone Sandy Hammond NP Primary Care Provider [phone] Rashi MONACO MD, Joe Marks Unavailable [phone] Bucky Alexander MD Unavailable [phone] Allergies Active Allergy Reactions Criticality Noted Date Comments Atorvastatin Unknown,Muscle pain Medium 03/25/2016 Penicillins Rash,Other (See comments),Anaphylaxi s High 03/25/2016 Reaction: Rash, , Reaction: Rash, Simvastatin Unknown,Muscle pain Medium 03/25/2016 Xwqbbfp-Jll-Hlf Reductase Inhibitors Other (See comments) Reaction: Muscle [...] to Rashaun. Aware that I will call/send Devver results letter once rec'd. If she's not [...] FNA cytology results PAF (paroxysmal atrial fibrillation) ([facility]) 0 08/08/2017 Chronic systolic CHF (congestive heart failure) ([facility]) 10/29/2016 Disorder of cardiac pacemaker electrode 07/31/19 17 Overview (09/12/2016): Pacemaker lead malfunction, initial encounter NICM (nonischemic cardiomyopathy) ([facility]) 04/09 Overview (09/29/2020): Peripartum CM -- She [...] (09/29/2020): Overview: [facility] ICD - [facility] [id number] SN: [id number] - Implanted 09/19/2014 by UNKNOWN RA: SJM [id number] SN: [id number] (Implanted 12/30/2003) RV: SJM [id number] SN: [id number] (Implanted 12/30/2003) LV: [facility] [id number] SN: [id number] (Implanted 08/29/[address] Queen) Implantable defibrillator reprogramming/check Overview (09/29/2020): [facility]lo ICD - Unify Cailin [id number] SN: [id number] - Implanted 09/19/2014 by UNKNOWN RA: SJM [id number] SN: [id number] (Implanted 12/30/2003) RV: SJM 1581 SN: [id number] (Implanted 12/30/2003) LV: [facility] [id number] SN: [id number] (Implanted 08/29/[address] Queen) Ventricular tachycardia 03/25/2016 Surgical History Surgery Date Site/Laterality Comments TONSILLECTOMY Tonsillectomy OTHER SURGICAL HISTORY urethrotomy OTHER SURGICAL HISTORY AICD/Pacemaker OTHER SURGICAL HISTORY redo AICD '09, 15 OTHER SURGICAL HISTORY broken elbow: repair broken elbow IR FINE NEEDLE ASPIRATION W IMAGE GUIDANCE 12/22/2017 N/A Medical History Medical History Date Comments Asthma Asthma; Comments : [facility] 07/31/2016 - Gastroesophageal reflux disease GERD Disorder of thyroid Thyroid dise ase Hypercholesterolemia High choles terol; Comments: [facility] 07/31/2016 - Hx Other Medical post car diomyopathy; Comments: [facility] 07/31/2016 - Hx Other Medical broken elbow; C omments: [facility] 07/31/2016 - CHF (congestive heart failur [...] on file Legal Sex Female 4:23 AM NET SOFTWARE DEVELOPER Gender Identity Not on file Sexual Orientation [...] history [place] [address] [place] [id number] [facility] CLAIMS [facility] CLAIMS [facility] CLAIMS Advance Directives For more information, please contact: [phone] * Full Code (Latest Code Status on File) Date Activated Date Inactivated Comments 08/18/2017 8:35 AM 08/20/2017 3:34 PM Care Teams Counter Person Relationship Specialty Start Date End Date Sandy Hammond NP [address] [place] [address] PCP - General Nurse Practitioner 10/26/18 Joe Markham III, MD [address] [facility] [[email or web address]] [address] [place] [address] Referring Physician Cardiology 09/29/20 Bucky Alexander MD [address] [facility] [[email or web address]] [address] [place] [address] Breaker Unit Assembler Electrophysiology 10/17/20
--- OUTSIDE RECORDS SUMMARY | 2024-07-10 15:44 | XMS_ITS | Encounter Summary ---
Author Organization [facility] Address [address] [place] [address]. [place], [place] [address] [place] [address] Care Team Providers Care Coat Joiner Name Role Phone Sandy Hammond Primary Care Provider [phone] Encounter Details Date Type Department Care Team (Late st Contact Info) Description 06/08/2021 BeckonCall Message Enc [facility] Medical Group Family & Internal Medicine [address] [place] [address] Sandy Hammond FNP [facility] [place], [place] [id number] Update Social History Tobacco Use Types Packs/Day [...] st Contact Info) Description 07/12/2024 1:00 PM PAPER MILL MANAGER Laboratory Only [facility] Medical [facility] Family & Internal Medicine - [address] [place] [address] Sandy Hammond FNP [address] [place] [address] 08/23/2024 3:00 PM CDT Office Visit [facility] Multispecialty Care - [facility] [address] [facility], [address] [place] [address] Macario Han MD [address] [place] [address] documented as of this encounter Visit Diagnoses Not on filedocumented in this encounter Additional Health Concerns Infection Onset Date Last Indicated Resolved Time COVID-19 Rule Out 06/07/2021 06/07/2021 06/14/2021 12:32 AM PAPER MILL MANAGER COVID-19 Rule Out 12/13/2021 12/13/2021 12/13/2021 4:48 PM CDT COVID-19 Rule Out 12/13/2021 12/13/2021 12/14/2021 4:35 PM CDT COVID-19 Rule Out 06/27/2022 06/27/2022 06/28/2022 1:09 PM PAPER MILL MANAGER Assessment Noted Time PHQ-9 Depression Total Score: 3 11/08/19 21 1:12 PM CDT documented as of this encounter Care Teams Coat Joiner Relationship Specialty Start Date End Date Sandy Hammond FNP [address] [place] [address] PCP - General NURSE PRACTITIONER 11/19/17 documented as of this encounter
--- OUTSIDE RECORDS SUMMARY | 2024-07-10 15:44 | XMS_ITS | Continuity of Care Document ---
Author Organization [facility] [employer] Address Formerly named [facility] [place] [address] Phone Care Team Providers Care Automation Analyst Name Role Phone Lalo Ochoa MD Unavailable [...] Diagnoses Date Provider Providers Copied on Encounter [facility] , [facility], [address] [place] [address], [id number] , tel:[phone] [facility] No Information 6 Gabriela May. [address] [place] [address], [id number] , [place]. tel:[phone] [facility] [employer] [facility], [address] [place] [address], [id number] , tel: [phone] [facility] No Information 6 Gabriela May. [address] [place] [address], [id number] , . tel:[phone] [facility], [address] [place] [address], [id number] , tel:[phone] Main Office Encntr for adjust and mgmt of automatic implntbl card defibChronic systolic (congestive) heart failureOth complications of the puerperium, [facility] 6 Hardik Flores. [address] [place] [address], [id number] , [place]. tel:[phone] Referring Provider: Mark Tovar, [address] [place] [address], [id number] . tel:[phone] [facility], [address] [place] [address], [id number] , tel:[phone] Main Office EKG (chief complaint) Supraventricular tachycardiaUnspecifie d atrial flutter 6 Hardik Flores. [address] [place] [address], [address] [place] [address] , . [phone] Referring Provider: Mark Tovar, [address] [place] [address], [id number] . tel:[phone] [facility], [address] [place] [address], [id number] , [phone] Main Office Encntr for adjust and mgmt of automatic implntbl card defibOth complications of the puerperium, [facility] 6 Hardik Flores. [address] [place] [address], [id number] , [place]. [phone] Referring Provider: Mark Tovar, [address] [place] [address], [id number] . tel:[phone] OFFICE/OUTPA TIENT VISIT, EST [facility], [address] [place] [address], [id number] , tel:[phone] Main Office Follow up (chief complaint) Chronic systolic (congestive) heart failureVentricular fibrillationPresence of automatic (implantable) cardiac defibrillatorOther cardiomyopathiesSupra ventricular tachycardiaEssential (primary) hypertensionHyperlipi demia, unspecifiedHypothyroi dism, unspecifiedUnspecifie d atrial flutterObesity 6 Axel Gee. [address] [place] [address], [address] [place] [address] , . tel: [phone] Referring Provider: Mark Tovar, [address] [place] [address], [address] [place] [address] . tel:[phone] [facility], [address] [place] [address], [address] [place] [address] , tel: [phone] Main Office No Information 6 Hardik Flores. [address] [place] [address], [address] [place] [address] , . tel: [phone] [facility], [address] [place] [address], [address] [place] [address] , tel: [phone] Main Office Encntr for adjust and mgmt of automatic implntbl card defibChronic systolic (congestive) heart failurePalpitations 5 Hardik Flores. [address] [place] [address], [address] [place] [address] , . tel: [phone] Referring Provider: Mark Tovar, [address] [place] [address], [address] [place] [address] . tel:[phone] [facility], [address] [place] [address], [address] [place] [address] , tel: [phone] Main Office No Information 5 Hardik Flores. [address] [place] [address], [address] [place] [address] , . tel: [phone] Referring Provider: Mark Tovar, [address] [place] [address], [id number] . tel:[phone] [facility], [address] [place] [address], [address] [place] [address] , tel: [phone] Main Office No Information Hardik Flores. [address] [place] [address], [address] [place] [address] , [place]. tel: [phone] Referring Provider: Mark Tovar, [address] [place] [address], [address] [place] [address] . tel:[phone] OFFICE/OUTPA TIENT VISIT, [facility], [address] [place] [address], [address] [place] [address] , tel: [phone] [facility] No Information 5 Gabriela May. [address] [place] [address], [address] [place] [address] , [place]. tel: [phone] Referring Provider: Lalo Alfredo, [address] [place] [address], [id number] . tel:[phone] [facility], [address] [place] [address], [address] [place] [address] , tel: [phone] Main Office No Information 5 Hardik Flores. [address] [place] [address], [address] [place] [address] , [place]. tel: [phone] Referring Provider: Mark Tovar, [address] [place] [address], [address] [place] [address] . tel:[phone] OFFICE/OUTPA TIENT VISIT, [facility], [address] [place] [address], [address] [place] [address] , tel: [phone] [facility] No Information 5 Edward Flores. [address] [place] [address], [address] [place] [address] , [place]. tel: [phone] Referring Provider: Mark Guzman, [address] [place] [address], [address] [place] [address] . tel:[phone] [facility] [employer] [facility], [address] [place] [address], [id number] , tel: [phone] [facility] OP No Information 5 Hardik Flores. [address] [place] [address], [id number] , [place]. tel: [phone] Referring Provider: Mark Tovar, [address] [place] [address], [address] [place] [address] . tel:[phone] OFFICE/OUTPA TIENT VISIT, [facility], [address] [place] [address], [id number] , [place] tel: [phone] Main Office No Information 5 Hardik Flores. [address] [place] [address], [id number] , [place]. tel: [phone] Referring Provider: Mark Tovar, [address] [place] [address], [address] [place] [address] . tel:[phone] [facility], [address] [place] [address], [id number] , tel: [phone] Main Office No Information Hardik Flores. [address] [place] [address], [address] [place] [address] , [place]. tel: [phone] Referring Provider: Mark Tovar, [address] [place] [address], [address] [place] [address] . tel:[phone] [facility], [address] [place] [address], [id number] , tel: [phone] [facility] No Information 5 Gabriela May. [address] [place] [address], [id number] , [place]. tel: [phone] Referring Provider: Lalo Alfredo, [address] [place] [address], [address] [place] [address] . tel:[phone] OFFICE/OUTPA TIENT VISIT, [facility], [address] [place] [address], [id number] , tel: [phone] Main Office No Information Hardik Flores. [address] [place] [address], [id number] , [place]. [phone] Referring Provider: Lalo Alfredo, [address] [place] [address], [id number] . tel:[phone] OFFICE/OUTPA TIENT VISIT, [facility] , [facility], [address] [place] [address], [id number] , [phone] [facility] No Information 5 Gabriela May. [address] [place] [address], [id number] , . [phone] Referring Provider: Lalo Alfredo, [address] [place] [address], [id number] . tel:[phone] Family History Family Member Type Diagnosis Age At Onset No Information Payers Payer name Insurance type Covered green party ID Authoriza tion(s) No Information Social [...]
--- OUTSIDE RECORDS SUMMARY | 2024-07-10 15:44 | XMS_ITS | Encounter Summary ---
Author Organization [facility] Address [address] [place] [address]. [place], [place] [address] [place] [address] Care Team Providers Care Corn Cutter Operator Name Role Phone Sandy Hammond Primary Care Provider [phone] Encounter Details Date Type Department Care Team (Late st Contact Info) Description 10/13/2019 Ocutronicst Message Enc [facility] Medical Group Family & Internal Medicine [address] [place] [address] Sandy Hammond FNP [address] [place] [address] RE: FW: Question Social History [...] st Contact Info) Description 07/12/2024 1:00 PM COSMETOLOGY TEACHER Laboratory Only [facility] Family & Internal Medicine - [place] [address] [place] [address] Sandy Hammond FNP [address] [place] [address] 08/23/2024 3:00 PM CDT Office Visit [facility] Multispecialty Care - [facility] [address] [facility], [address] [place] [address] Macario Han MD 3 [place] [address] documented as of this encounter Visit Diagnoses Not on filedocumented in this encounter Additional Health Concerns Infection Onset Date Last Indicated Resolved Time COVID-19 Rule Out 01/11/2020 01/20/2020 03/20/2020 12:33 AM CDT COVID-19 Rule Out 05/08/2020 05/11/2020 05/19/2020 3:16 PM COSMETOLOGY TEACHER COVID-19 Rule Out 07/18/2020 07/18/2020 07/20/2020 7:00 AM COSMETOLOGY TEACHER COVID-19 Rule Out 06/07/2021 06/07/2021 06/14/2021 12:32 AM COSMETOLOGY TEACHER COVID-19 Rule Out 12/13/2021 12/13/2021 12/13/2021 4:48 PM CDT COVID-19 Rule Out 12/13/2021 12/13/2021 12/14/2021 4:35 PM CDT COVID-19 Rule Out 06/27/2022 06/27/2022 06/28/2022 1:09 PM COSMETOLOGY TEACHER documented as of this encounter Care Teams Corn Cutter Operator Relationship Specialty Start Date End Date Sandy Hammond FNP [address] [place] [address] PCP - General NURSE PRACTITIONER 11/19/17 documented as of this encounter
--- OUTSIDE RECORDS SUMMARY | 2024-07-10 15:44 | XMS_ITS | Clinical Summary ---
Author Organization [facility] Address [address] [facility] [place] [address] Care Team Providers Care Patient Service Representative Name Role Phone Manish Sandy FITZPATRICK-ARIANA Primary Care Provider [phone] Source Comments [facility],non-owned Affiliates and Associated Physician Practices is amultiple site organization consisting of ambulatory clinics and hospital sitesin [place], [place], [place] and [place]. This disclosure is being madepursuant to the Care Everywhere program and may not contain all information available regarding this patient. Last updated 18.[facility] Allergies Active Allergy Reactions Criticality Noted Date [...] (09/03/2016): [facility] Marlo ICD - Unify Cailin [id number] SN: [id number] - Implanted 09/19/2014 by UNKNOWN RA: [facility] 1488 SN: [id number] (Implanted 12/30/2003) RV: [facility] 1581 SN: [id number] (Implanted 12/30/2003) LV: [facility] [id number] SN: [id number] (Implanted 08/29/[address] Queen) Resolved Problems [...] METABOLIC PANEL (CALCIUM TOTAL) 06/24/2017 1:54 PM INTAKE ASSESSOR from Last 3 Months or Most Recently Relevant to Health Maintenance Results * BASIC METABOLIC PANEL (CALCIUM TOTAL) (06/24/2017 1:54 PM INTAKE ASSESSOR) Glucose 96 65 - 99 mg/dL [facility] Comment: ? Fasting reference interval BUN 19 7 - 25 mg/dL [facility] Creatinine 0.95 0.50 - 1.05 mg/dL [facility] Comment: For patients >49 years of age, the reference limit for Creatinine is approximately 13% higher for people identified as -[place]. eGFR by MDRD 70 > OR = [...] 10.4 mg/dL [facility] Comment: Test Performed at: [facility] [address] [place], [place] ??[address] ROGELIO LICONA DO,MPH 06/24/2017 1:54 PM INTAKE ASSESSOR 06/24/2017 1:55 PM INTAKE ASSESSOR Bucky Alexander MD LAB - CHEMISTRY BREANNA PAULA [facility] Organization Address City/State/ZIP Co de Phone Number [phone] [place] [address] from Last 3 Months or Most Recently Relevant to Health Maintenance Care Teams Patient Service Representative Relationship Specialty Start Date End Date Sandy Hammond APRN-ARIANA [address] [place] [address] PCP - General 11/20/21
--- OUTSIDE RECORDS SUMMARY | 2024-07-10 15:44 | XMS_ITS | Encounter Summary ---
Author Organization [facility] Address [address] [place] [address]. [place] [address] [place] [address] Care Team Providers Care Shipping And Receiving Assistant Name Role Phone Sanyd Hammond CAMPAIGN MANAGER Primary Care Provider [phone] Encounter Details Date Type Department Care Team (Late st Contact Info) Description 12/29/2023 [employer] Message [facility] Medical Group [facility] [id number] [place] [address] Angel Luis, [facility] Provider 12/30/23 Appointment Social History Tobacco Use [...] st Contact Info) Description 07/12/2024 1:00 PM BUSINESS INFORMATION ANALYST Laboratory Only [facility] Family & Internal Medicine - [place] [address] [place] [address] Sandy Hammond FNP [address] [place] [address] 08/23/2024 3:00 PM CDT Office Visit [facility] Multispecialty Care - [facility] [address] [facility], [address] [place] [address] Macario Han MD 3 [place] [address] documented as of this encounter Visit Diagnoses Not on filedocumented in this encounter Additional Health Concerns Assessment Noted Time PHQ-9 Depression Total Score: 6 10/13/19 22 11:56 AM CDT documented as of this encounter Care Teams Shipping And Receiving Assistant Relationship Specialty Start Date End Date Sandy Hammond FNP [address] [place] [address] PCP - General NURSE PRACTITIONER 11/19/17 documented as of this encounter
--- OUTSIDE RECORDS SUMMARY | 2024-07-10 15:44 | XMS_ITS | Encounter Summary ---
Author Organization [facility] Address [address] [place] [address]. [place], [place] [address] [place] [address] Care Team Providers Care Human Resources Coordinator Name Role Phone Sandy Hammond Primary Care Provider [phone] Encounter Details Date Type Department Care Team (Late st Contact Info) Description 11/15/2021 Gl[employer]el Directt Message Enc [facility] Medical Group Family & Internal Medicine [address] [place] [address] Sandy Hammond FNP [facility] [place], [place] [address] BMP Results Social History Tobacco Use Types [...] st Contact Info) Description 07/12/2024 1:00 PM COMPUTER DRAFTER Laboratory Only [facility] Family & Internal Medicine - [place] [address] [place] [address] Sandy Hammond FNP [address] [place] [address] 08/23/2024 3:00 PM CDT Office Visit [facility] Multispecialty Care - [facility] [address] [facility], [address] [place] [address] Macario Han MD [address] [place] [address] documented as of this encounter Visit Diagnoses Not on filedocumented in this encounter Additional Health Concerns Infection Onset Date Last Indicated Resolved Time COVID-19 Rule Out 12/13/2021 12/13/2021 12/13/2021 4:48 PM CDT COVID-19 Rule Out 12/13/2021 12/13/2021 12/14/2021 4:35 PM CDT COVID-19 Rule Out 06/27/2022 06/27/2022 06/28/2022 1:09 PM COMPUTER DRAFTER Assessment Noted Time PHQ-9 Depression Total Score: 6 10/13/19 22 11:56 AM CDT documented as of this encounter Care Teams Human Resources Coordinator Relationship Specialty Start Date End Date Sandy Hammond FNP [address] [place] [address] PCP - General NURSE PRACTITIONER 11/19/17 documented as of this encounter
--- OUTSIDE RECORDS SUMMARY | 2024-07-10 15:44 | XMS_ITS | Patient Health Summary ---
Author Organization [facility] Address [address] [place] [address] Care Team Providers Care Non Linear Editor Name Role Phone Sandy Hammond APRN-ARIANA Primary Care Provider [phone] Note from [facility],non-owned Affiliates and Associated Physician Practices is amultiple site organization consisting of ambulatory clinics and hospital sitesin [place], [place], [place] and [place]. This disclosure is being madepursuant to the Care Everywhere program and may not contain all information available regarding this patient. Last updated 18.[facility] Allergies * Carvedilol * Sacubitril-Valsartan(Weakness) [...] CHECK(Performed 06/19/2020) Performed for DCM (dilated cardiomyopathy) ([facility]), Implantable defibrillator reprogramming/check * ICD CLINIC CHECK(Performed 05/29/2020) Performed for DCM (dilated cardiomyopathy) ([facility]), Biventricular ICD (implantable cardioverter-defibrillator) in place * EKG 12-LEAD(Performed 02/22/2020) Performed for DCM (dilated cardiomyopathy) ([facility]) * ICD CLINIC CHECK(Performed 02/22/2020) Performed for DCM (dilated cardiomyopathy) ([facility]), Implantable defibrillator reprogramming/check * ICD CLINIC CHECK(Performed 11/05/2019) Performed for DCM (dilated cardiomyopathy) ([facility]), ICD (implantable cardioverter- defibrillator), biventricular, in situ * CT BRAIN IMAGE(Performed 08/18/2019) * US CAROTID DUPLEX BILAT(Performed 08/18/2019) * ECHOCARDIOGRAM COMPLETE(Performed 08/18/2019) * RHYTHM STRIP(Performed 08/18/2019) * EKG 12-LEAD(Performed 08/17/2019) * EKG 12-LEAD(Performed 08/17/2019) * RHYTHM STRIP(Performed 08/17/2019) * LAB MISC TEST(Performed 08/17/2019) * XR CHEST 2VW(Performed 08/17/2019) * ICD CLINIC CHECK(Performed 07/22/2019) Performed for DCM (dilated cardiomyopathy) ([facility]), ICD (implantable cardioverter- defibrillator), biventricular, in situ [...] CDT) Digoxin 0.5(L) 0.8 - 2.0 mcg/L SupportLocal Comment: DOMINIQUE Anti-Digoxin (Digibind(R)) in serum/plasma of patients under toxicity therapy may interfere with the digoxin immunoassay. REPORT COMMENT: NO SCAN OF HAS PHOTO FASTING:NO Test Performed at: [facility] [address] ??[phone] ROGELIO LICONA DO,MPH 12/18/2020 12:1 7 PM CDT 12/18/2020 12:18 PM CDT Joe Markham MD LAB - CHEMISTRY BREANNA PAULA [facility] [address] [place] [address] * ICD CLINIC CHECK (06/19/2020 7:48 AM JOURNEYMAN MILLWRIGHT) Only the most recent of19 resultswithin the time period is included. Narrative Soumya Goldberg - 06/19/2020 7:48 AM JOURNEYMAN MILLWRIGHT GoldbergSoumya ? 06/19/2020 ??7:50 AM See scan [...] METABOLIC PANEL (CALCIUM TOTAL) (06/24/2017 1:54 PM JOURNEYMAN MILLWRIGHT) Only the most recent of2 resultswithin the time period is included. Glucose 96 65 - 99 mg/dL [facility] Comment: ? Fasting reference interval BUN 19 7 - 25 mg/dL [facility] Creatinine 0.95 0.50 - 1.05 mg/dL [facility] Comment: For patients >49 years of age, the reference limit for Creatinine is approximately 13% higher for people identified as -Surinamese. eGFR by MDRD 70 > OR = [...] 10.4 mg/dL [facility] Comment: Test Performed at: [facility] [address] [place], [place] ??[phone] ROGELIO LICONA DO,MPH 06/24/2017 1:54 PM JOURNEYMAN MILLWRIGHT 06/24/2017 1:55 PM JOURNEYMAN MILLWRIGHT Bucky Alexander MD LAB - CHEMISTRY BREANNA PAULA [facility] Organization Address City/State/ZIP Co de Phone Number [facility] [address] [place] [address] * IMPLANT ICD (08/28/2016) Bucky Alexander MD ELECTROPHYSIOLOGY OR DERABLES * EP STUDY W ABLATION (09/18/2015) Historical Provider ELECTROPHYSIOLOGY ORDERABLES * ABLATION (09/18/2015) Historical Provider CARDIAC SERVICES ORDERABLES Care Teams Non Linear Editor Relationship Specialty Start Date End Date Sandy Hammond APRN-ARIANA [address] [place] [address] PCP - General 11/20/21
--- OUTSIDE RECORDS SUMMARY | 2024-07-10 15:44 | XMS_ITS | Encounter Summary ---
Author Organization [facility] Address [address] [place] [address]. [place], [place] [address] [place] [address] Care Team Providers Care Animal Cruelty Investigator Name Role Phone Sandy Hammond Primary Care Provider [phone] Encounter Details Date Type Department Care Team (Late st Contact Info) Description 05/29/[address] [facility] Family & Internal Medicine [place] [address] [place] [address] Sandy Hammond FNP [address] [place] [address] RE: Follow Up/Update Social History [...] as possible if she does see her. ERY CONTAINER FINISHING HAND documented in this encounter Plan of Treatment Upcoming Encounters Date Type Department Care Team (Late st Contact Info) Description 07/12/2024 1:00 PM BATTERY CONTAINER FINISHING HAND Laboratory Only [facility] Family & Internal Medicine - [address] [address] [address] [address] 08/23/2024 3:00 PM CDT Office Visit [facility] Multispecialty Care - [facility] [address] [facility], [address] [place] [phone] Macario Han MD 3 [place] [address] documented as of this encounter Visit Diagnoses Not on filedocumented in this encounter Additional Health Concerns Infection Onset Date Last Indicated Resolved Time COVID-19 Rule Out 07/18/2020 07/18/2020 07/20/2020 7:00 AM BATTERY CONTAINER FINISHING HAND COVID-19 Rule Out 06/07/2021 06/07/2021 06/14/2021 12:32 AM BATTERY CONTAINER FINISHING HAND COVID-19 Rule Out 12/13/2021 12/13/2021 12/13/2021 4:48 PM CDT COVID-19 Rule Out 12/13/2021 12/13/2021 12/14/2021 4:35 PM CDT COVID-19 Rule Out 06/27/2022 06/27/2022 06/28/2022 1:09 PM BATTERY CONTAINER FINISHING HAND documented as of this encounter Care Teams Animal Cruelty Investigator Relationship Specialty Start Date End Date Sandy Hammond FNP [address] [place] [address] PCP - General NURSE PRACTITIONER 11/19/17 documented as of this encounter
--- OUTSIDE RECORDS SUMMARY | 2024-07-10 15:44 | XMS_ITS | Clinical Summary ---
Author Organization [facility] Address [address], [facility] [address] [place] [address] Phone Care Team Providers Care Reel Cutter Name Role Phone Sandy Hammond APRN, FRUIT GRADER Primary Care Provider Jorge Ruano MD Unavailable [phone] Allergies Active Allergy Reactions Criticality Noted Date [...] to complete this topic Insurance Care Teams Reel Cutter Relationship Specialty Start Date End Date Sandy Hammond, COORDINATOR OF ONLINE PROGRAMS, FRUIT GRADER [address] [place], [place] [address] PCP - General Internal Medicine 09/03/23 Jorge Ruano MD [address] [place] [address] Consulting Physician Oncology 09/03/23
--- OUTSIDE RECORDS SUMMARY | 2024-07-10 15:44 | XMS_ITS | Encounter Summary ---
Author Organization [facility] Address [address] [place] [address]. [place], [place] [address] [place] [address] Care Team Providers Care Steward/Stewardess Wine Name Role Phone Sandy Hammond Primary Care Provider [phone] Encounter Details Date Type Department Care Team (Late st Contact Info) Description 09/06/2021 Therapeutic Monitoring Servicest Message Enc [facility] Family & Internal Medicine [address] [place] [address] Sandy Hammond FNP [address] [place] [address] UTI symptoms Social History Tobacco [...] st Contact Info) Description 07/12/2024 1:00 PM QUALITY SYSTEMS SPECIALIST Laboratory Only [facility] Family & Internal Medicine - [place] [address] [place] [address] Sandy Hammond FNP [facility] [address] [place] [address] 08/23/2024 3:00 PM CDT Office Visit [facility] Multispecialty Care - [facility] [address] [facility], [address] [place] [address] Macario Han MD 3 [place] [address] documented as of this encounter Visit Diagnoses Not on filedocumented in this encounter Additional Health Concerns Infection Onset Date Last Indicated Resolved Time COVID-19 Rule Out 12/13/2021 12/13/2021 12/13/2021 4:48 PM CDT COVID-19 Rule Out 12/13/2021 12/13/2021 12/14/2021 4:35 PM CDT COVID-19 Rule Out 06/27/2022 06/27/2022 06/28/2022 1:09 PM QUALITY SYSTEMS SPECIALIST Assessment Noted Time PHQ-9 Depression Total Score: 3 11/08/19 21 1:12 PM CDT documented as of this encounter Care Teams Steward/Stewardess Wine Relationship Specialty Start Date End Date Sandy Hammond FNP [address] [place] [address] PCP - General NURSE PRACTITIONER 11/19/17 documented as of this encounter
--- OUTSIDE RECORDS SUMMARY | 2024-07-10 15:44 | XMS_ITS | Encounter Summary ---
Author Organization [facility] Address [address] [place] [address]. [place], [place] [address] [place] [address] Care Team Providers Care Job Tracer Name Role Phone Sandy Hammond Primary Care Provider [phone] Encounter Details Date Type Department Care Team (Late st Contact Info) Description 01/10/2020 Screen Fix [place] Message Enc [facility] Family & Internal Medicine [place] [address] [place] [address] Sandy Hammond FNP [address] [place] [address] Medication Questions Social History Tobacco [...] st Contact Info) Description 07/12/2024 1:00 PM SURGICAL AIDE Laboratory Only [facility] Family & Internal Medicine - [place] [address] [place] [address] Sandy Hammond FNP [address] [place] [address] 08/23/2024 3:00 PM CDT Office Visit [facility] Multispecialty Care - [facility] [address] [facility], [address] [place] [address] Macario Han MD 3 [place] [address] documented as of this encounter Visit Diagnoses Not on filedocumented in this encounter Additional Health Concerns Infection Onset Date Last Indicated Resolved Time COVID-19 Rule Out 01/11/2020 01/20/2020 03/20/2020 12:33 AM CDT COVID-19 Rule Out 05/08/2020 05/11/2020 05/19/2020 3:16 PM SURGICAL AIDE COVID-19 Rule Out 07/18/2020 07/18/2020 07/20/2020 7:00 AM SURGICAL AIDE COVID-19 Rule Out 06/07/2021 06/07/2021 06/14/2021 12:32 AM SURGICAL AIDE COVID-19 Rule Out 12/13/2021 12/13/2021 12/13/2021 4:48 PM CDT COVID-19 Rule Out 12/13/2021 12/13/2021 12/14/2021 4:35 PM CDT COVID-19 Rule Out 06/27/2022 06/27/2022 06/28/2022 1:09 PM SURGICAL AIDE documented as of this encounter Care Teams Job Tracer Relationship Specialty Start Date End Date Sandy Hammond FNP [address] [place] [address] PCP - General NURSE PRACTITIONER 11/19/17 documented as of this encounter
--- OUTSIDE RECORDS SUMMARY | 2024-07-10 15:44 | XMS_ITS | Encounter Summary ---
Author Organization [facility] Address [address] [place] [address]. [place], [place] [address] [place] [address] Care Team Providers Care Vehicle Safety Inspector Name Role Phone Sandy Hammond Primary Care Provider Encounter Details Date Type Department Care Team (Late st Contact Info) Description 06/18/2021 [place] Message Enc [facility] Family & Internal Medicine [place] [address] [place] [address] Sandy Hammond FNP [address] [place] [address] Covid Headaches Social History Tobacco [...] st Contact Info) Description 07/12/2024 1:00 PM UNISAW OPERATOR Laboratory Only [facility] Family & Internal Medicine - [place] [address] [place] [address] Sandy Hammond FNP [address] [place] [address] 08/23/2024 3:00 PM CDT Office Visit [facility] Multispecialty Care - [facility] [address] [facility], [address] [place] [address] Macario Han MD 3 [place] [address] documented as of this encounter Visit Diagnoses Not on filedocumented in this encounter Additional Health Concerns Infection Onset Date Last Indicated Resolved Time COVID-19 Rule Out 12/13/2021 12/13/2021 12/13/2021 4:48 PM CDT COVID-19 Rule Out 12/13/2021 12/13/2021 12/14/2021 4:35 PM CDT COVID-19 Rule Out 06/27/2022 06/27/2022 06/28/2022 1:09 PM UNISAW OPERATOR Assessment Noted Time PHQ-9 Depression Total Score: 3 11/08/19 21 1:12 PM CDT documented as of this encounter Care Teams Vehicle Safety Inspector Relationship Specialty Start Date End Date Sandy Hammond FNP [address] [place] [address] PCP - General NURSE PRACTITIONER 11/19/17 documented as of this encounter
--- OUTSIDE RECORDS SUMMARY | 2024-07-10 15:44 | XMS_ITS | Referral Summary ---
Author Organization [facility] Address [address] [place] [address] Care Team Providers Care Water Main Pipe Layer Name Role Phone Sandy Hammond NP Primary Care Provider [phone] Rashi MONACO MD, Joe Marks Unavailable [phone] Bucky Alexander MD Unavailable [phone] Allergies Active Allergy Reactions Criticality Noted Date Comments Atorvastatin Unknown,Muscle pain Medium 03/25/2016 Penicillins Rash,Other (See comments),Anaphylaxi s High 03/25/2016 Reaction: Rash, , Reaction: Rash, Simvastatin Unknown,Muscle pain Medium 03/25/2016 Dnqgvgu-Kub-Ery Reductase Inhibitors Other (See comments) Reaction: Muscle [...] to [place]. Aware that I will call/send [employer] results letter once rec'd. If she's not [...] FNA cytology results PAF (paroxysmal atrial fibrillation) ([facility]) 0 08/08/2017 Chronic systolic CHF (congestive heart failure) ([facility]) 10/29/2016 Disorder of cardiac pacemaker electrode 07/31/19 17 Overview (09/12/2016): Pacemaker lead malfunction, initial encounter NICM (nonischemic cardiomyopathy) ([facility]) 04/09 Overview (09/29/2020): Peripartum CM -- [...] (09/29/2020): Overview: [facility] ICD - [facility] [id number] SN: [id number] - Implanted 09/19/2014 by UNKNOWN RA: SJM 1488 SN: [id number] (Implanted 12/30/2003) RV: SJM 1581 SN: [id number] (Implanted 12/30/2003) LV: [facility] [id number] SN: [id number] (Implanted 08/29/[address] Queen) Implantable defibrillator reprogramming/check Overview (09/29/2020): [facility] ICD - Unify [place] [id number] SN: [id number] - Implanted 09/19/2014 by UNKNOWN RA: SJM 1488 SN: [id number] (Implanted 12/30/2003) RV: SJM 1581 SN: [id number] (Implanted 12/30/2003) LV: [facility] [id number] SN: [id number] (Implanted 08/29/[address] Queen) Ventricular tachycardia [...] on file Legal Sex Female 4:23 AM [employer] Gender Identity Not on file Sexual Orientation [...] Treatment Not on [place] [address] [place] [address] [facility]S [facility] CLAIM[facility] Advance Directives For more information, please contact: [phone] * Full Code (Latest Code Status on File) Date Activated Date Inactivated Comments 08/18/2017 8:35 AM 08/20/2017 3:34 PM Care Teams Water Main Pipe Layer Relationship Specialty Start Date End Date Sandy Hammond NP [address] [place] [address] PCP - General Nurse Practitioner 10/26/18 Joe Markham III, MD [address] [facility] [address], [place] [address] Referring Physician Cardiology 09/29/20 Bucky Alexander MD [address] [place] [address] [address] Academic Associate Electrophysiology 10/17/20
--- OUTSIDE RECORDS SUMMARY | 2024-07-10 15:44 | XMS_ITS | Referral Summary ---
Author Organization [facility] Address [address] [facility] [place] [address] Care Team Providers Care Call Worker Person Name Role Phone Manish Sandy FITZPATRICK-ARIANA Primary Care Provider [phone] Source Comments [facility] [employer],non-owned Affiliates and Associated Physician Practices is amultiple site organization consisting of ambulatory clinics and hospital sitesin [place], [place], [place] and [place]. This disclosure is being madepursuant to the Care Everywhere program and may not contain all information available regarding this patient. Last updated 18.[facility] [employer] Allergies Active Allergy Reactions Criticality Noted [...] (09/03/2016): [facility]lo ICD - Unify Cailin [id number] SN: [id number] - Implanted 09/19/2014 by UNKNOWN RA: [facility] 1488 SN: [id number] (Implanted 12/30/2003) RV: [facility] 1581 SN: [id number] (Implanted 12/30/2003) LV: [facility] [id number] SN: [id number] (Implanted 08/29/[address] Queen) Resolved Problems [...] METABOLIC PANEL (CALCIUM TOTAL) 06/24/2017 1:54 PM DOCUMENTATION ENGINEER from Last 3 Months or Most Recently Relevant to Health Maintenance Results * BASIC METABOLIC PANEL (CALCIUM TOTAL) (06/24/2017 1:54 PM DOCUMENTATION ENGINEER) Glucose 96 65 - 99 mg/dL [facility] Comment: ? Fasting reference interval BUN 19 7 - 25 mg/dL [facility] Creatinine 0.95 0.50 - 1.05 mg/dL [facility] Comment: For patients >49 years of age, the reference limit for Creatinine is approximately 13% higher for people identified as -German. eGFR by MDRD 70 > OR = [...] 10.4 mg/dL [facility] Comment: Test Performed at: [facility] [address] [place], [place] ??[phone] ROGELIO LICONA DO,MPH 06/24/2017 1:54 PM DOCUMENTATION ENGINEER 06/24/2017 1:55 PM DOCUMENTATION ENGINEER Bucky Alexander MD LAB - CHEMISTRY BREANNA PAULA [facility] Organization Address City/State/ZIP Co de Phone Number [facility] [address] [place] [address] from Last 3 Months or Most Recently Relevant to Health Maintenance Care Teams Call Worker Person Relationship Specialty Start Date End Date Sandy Hammond APRN-ARIANA [address] [place] [address] PCP - General 11/20/21
--- OUTSIDE RECORDS SUMMARY | 2024-07-10 15:44 | XMS_ITS | Encounter Summary ---
Author Organization [facility] Address [address] [place] [address]. [place], [place] [address] [place] [address] Care Team Providers Care Electric Mule Operator Name Role Phone Sandy Hammond Primary Care Provider [phone] Encounter Details Date Type Department Care Team (Late st Contact Info) Description 06/08/2021 PakSenset Message Enc [facility] Family & Internal Medicine [place] [place] [address] Sandy Hammond FNP [address] [place] [address] Covid test Social History Tobacco [...] st Contact Info) Description 07/12/2024 1:00 PM SOLVENT STATION ATTENDANT Laboratory Only [facility] Medical [facility] Family & Internal Medicine - [address] [address] Sandy Hammond FNP [address] [place] [address] 08/23/2024 3:00 PM CDT Office Visit [facility] Multispecialty Care - [facility] [address] [facility], [address] [place] [address] Macario Han MD 3 [place] [address] documented as of this encounter Visit Diagnoses Not on filedocumented in this encounter Additional Health Concerns Infection Onset Date Last Indicated Resolved Time COVID-19 Rule Out 06/07/2021 06/07/2021 06/14/2021 12:32 AM SOLVENT STATION ATTENDANT COVID-19 Rule Out 12/13/2021 12/13/2021 12/13/2021 4:48 PM CDT COVID-19 Rule Out 12/13/2021 12/13/2021 12/14/2021 4:35 PM CDT COVID-19 Rule Out 06/27/2022 06/27/2022 06/28/2022 1:09 PM SOLVENT STATION ATTENDANT Assessment Noted Time PHQ-9 Depression Total Score: 3 11/08/19 21 1:12 PM CDT documented as of this encounter Care Teams Electric Mule Operator Relationship Specialty Start Date End Date Sandy Hammond FNP [address] [place] [address] PCP - General NURSE PRACTITIONER 11/19/17 documented as of this encounter
--- OUTSIDE RECORDS SUMMARY | 2024-07-10 15:44 | XMS_ITS | Encounter Summary ---
Author Organization [facility] Address [address] [place] [address]. [place], [place] [address] [place] [address] Care Team Providers Care Pattern Data Operator Name Role Phone Sandy Hammond Primary Care Provider [phone] Encounter Details Date Type Department Care Team (Late st Contact Info) Description 08/02/2020 Gig[employer] Message Enc [facility] Family & Internal Medicine [place] [address] [place] [address] Sandy Hammond FNP [facility] [place], [place] [address] RE: FW: Question Social History Tobacco Use [...] st Contact Info) Description 07/12/2024 1:00 PM COMMUNITY PLANNER Laboratory Only [facility] Family & Internal Medicine - [place] [address] [place] [address] Sandy Hammond FNP [address] [place] [address] 08/23/2024 3:00 PM CDT Office Visit [facility] Multispecialty Care - [facility] [address] [facility], [address] [place] [address] Macario Han MD 3 [place] [address] documented as of this encounter Visit Diagnoses Not on filedocumented in this encounter Additional Health Concerns Infection Onset Date Last Indicated Resolved Time COVID-19 Rule Out 06/07/2021 06/07/2021 06/14/2021 12:32 AM COMMUNITY PLANNER COVID-19 Rule Out 12/13/2021 12/13/2021 12/13/2021 4:48 PM CDT COVID-19 Rule Out 12/13/2021 12/13/2021 12/14/2021 4:35 PM CDT COVID-19 Rule Out 06/27/2022 06/27/2022 06/28/2022 1:09 PM COMMUNITY PLANNER documented as of this encounter Care Teams Pattern Data Operator Relationship Specialty Start Date End Date Sandy Hammond FNP [address] [place] [address] PCP - General NURSE PRACTITIONER 11/19/17 documented as of this encounter
--- OUTSIDE RECORDS SUMMARY | 2024-07-10 15:44 | XMS_ITS | Encounter Summary ---
Author Organization [facility] Address [address] [place] [address] Phone Care Team Providers Care Credit Support Counselor Name Role Phone Sandy Hammond APRN, DISTRIBUTION ESTIMATOR Primary Care Provider Jorge Ruano MD Unavailable [phone] Encounter Details Date Type Department Care Team (Late st Contact Info) Description 03/15/2024 Telephone [facility] [address] [place] [address] Jorge Ruano MD [address] [place] [address] Social History Tobacco Use Types [...] on filedocumented in this encounter Care Teams Credit Support Counselor Relationship Specialty Start Date End Date Sandy Hammond, AMARI, DISTRIBUTION ESTIMATOR [address] [place] [address] PCP - General Internal Medicine 09/03/23 Jorge Ruano MD [address] [place] [phone] Consulting Physician Oncology 09/03/23 documented as of this encounter
--- OUTSIDE RECORDS SUMMARY | 2024-07-10 15:44 | XMS_ITS | Encounter Summary ---
Author Organization [facility] Address [address] [place] [address]. [place], [place] [id number] [place] [address] Care Team Providers Care Ironer Name Role Phone Sandy Hammond Primary Care Provider [phone] Encounter Details Date Type Department Care Team (Late st Contact Info) Description 05/10/2020 [email or web address] Message Enc [facility] Medical Group Family & Internal Medicine [id number] [place] [address] Sandy Hammond FNP [facility] [place], [place] [id number] RE: Referral Request Social History Tobacco Use [...] st Contact Info) Description 07/12/2024 1:00 PM RESPIRATORY EQUIPMENT ASSISTANT Laboratory Only [facility] Medical [facility] Family & Internal Medicine - [place] [address] [place] [address] Sandy Hammond FNP [address] [place] [address] 08/23/2024 3:00 PM CDT Office Visit [facility] - [facility] [address] [facility], [address] [place] [address] Macario Han MD [address] [place] [address] documented as of this encounter Visit Diagnoses Not on filedocumented in this encounter Additional Health Concerns Infection Onset Date Last Indicated Resolved Time COVID-19 Rule Out 05/08/2020 05/11/2020 05/19/2020 3:16 PM RESPIRATORY EQUIPMENT ASSISTANT COVID-19 Rule Out 07/18/2020 07/18/2020 07/20/2020 7:00 AM RESPIRATORY EQUIPMENT ASSISTANT COVID-19 Rule Out 06/07/2021 06/07/2021 06/14/2021 12:32 AM RESPIRATORY EQUIPMENT ASSISTANT COVID-19 Rule Out 12/13/2021 12/13/2021 12/13/2021 4:48 PM CDT COVID-19 Rule Out 12/13/2021 12/13/2021 12/14/2021 4:35 PM CDT COVID-19 Rule Out 06/27/2022 06/27/2022 06/28/2022 1:09 PM RESPIRATORY EQUIPMENT ASSISTANT documented as of this encounter Care Teams Ironer Relationship Specialty Start Date End Date Sandy Hammond FNP [address] [place] [address] PCP - General NURSE PRACTITIONER 11/19/17 documented as of this encounter
--- OUTSIDE RECORDS SUMMARY | 2024-07-10 15:45 | XMS_ITS | Clinical Summary ---
Author Organization [facility] Address [address] [place] [address]. [place], [place] [address] [place] [address] Care Team Providers Care Heel Splitter Name Role Phone Sandy Hammond RANULFO Primary Care Provider [phone] Allergies Active Allergy Reactions Criticality Noted Date [...] congestive heart failure, unspecified heart failure type ([facility] HHS/HCC) TAKE 1 TABLET(50 MG) BY MOUTH DAILY 90 tablet 2 01/15/20 24 Active spironolactone (ALDACTONE) 50 MG tabletIndications :Chronic congestive heart failure, unspecified heart failure type ([facility] HHS/HCC) TAKE 1 TABLET(50 MG) BY MOUTH [...] with high cholesterol Congestive heart failure (CMS/HCC [facility]) 04/18 Cervical radiculopathy 08/09/2022 Bulge of cervical disc without myelopathy 2022 Gastroesophageal reflux dise ase, unspecified whether esophagitis present 12/19/2021 COVID-19 06/08/2021 Degenerative disc disease, lumbar 11/07/2020 Vaginal yeast infection 08/22/2020 Atrial tachycardia ([facility]) 02/23/2020 Anxiety 01/26/2020 High risk medication use [...] Migraine 09/18/2017 PAF (paroxysmal atrial fibrillation) ([facility] S/HCC) 08/08/2017 Insomnia 07/30/2017 Nausea 07/30/2017 Shortness of breath 07/30/2017 NICM (nonischemic cardiomyopathy) ([facility]/H CC) 04/11/2017 Overview (09/25/2018): Overview: Peripartum CM [...] RVSP 30-35 mmHg DCM (dilated cardiomyopathy) ([facility]) 1 06/11/2016 Chronic systolic CHF (conges tive heart failure) ([facility]) 10/29/2016 Disorder of cardiac pacemaker electrode 07/31/19 17 Overview (09/25/2018): Overview: Pacemaker lead malfunction, initial encounter S/P catheter ablation of slow pathway 04/26/2016 Overview (09/25/2018): Overview: AVNRT ablation Implantable defibrillator reprogramming/check Overview (09/25/2018): Overview: [employer] ICD - Unify Assura [id number] SN: [id number] - Implanted 09/19/2014 by UNKNOWN RA: [facility] 1488 SN: [id number] (Implanted 12/30/2003) RV: [facility] 1581 SN: [id number] (Implanted 12/30/2003) LV: [facility] [id number] SN: [id number] (Implanted 08/29/[address] Queen) VT (ventricular tachycardia) ([facility]) 1 VF (ventricular fibrillation) ([facility]) 03/25/2016 Biventricular ICD (implantab le cardioverter-defibrillator) in place 03/25/2016 Overview (11/07/2020): [facility] [place] ICD - Unify [employer]ura [id number] SN: [id number] - Implanted 09/19/2014 by UNKNOWN RA: [facility] 1488 SN: [id number] (Implanted 12/30/2003) RV: [facility] 1581 SN: [id number] (Implanted 12/30/2003) LV: [facility] [id number] SN: [id number] (Implanted 08/29/[address] Queen) Overview: [facility] [place] ICD - Unify Assura [id number] SN: [id number] - Implanted 09/19/2014 by UNKNOWN RA: [facility] 1488 SN: [id number] (Implanted 12/30/2003) RV: [facility] 1581 SN: [id number] (Implanted 12/30/2003) LV: [facility] [id number] SN: [id number] (Implanted 08/29/[address] Queen) Resolved Problems [...] Department Care Team Description 06/29/2024 1:20 PM AD OPERATIONS COORDINATOR Office Visit [facility] Family & Internal Medicine [address] [address] Sandy Hammond FNP Follow Up 06/29/2024 Travel [...] Comments Blood Pressure 108/51 06/29/2024 1:39 PM AD OPERATIONS COORDINATOR Pulse 103 06/29/2024 1:39 PM AD OPERATIONS COORDINATOR Temperature 37 ??C (98.6 ??F) 06/29/2024 1:39 PM AD OPERATIONS COORDINATOR Respiratory Rate 14 06/29/2024 1:39 PM AD OPERATIONS COORDINATOR Oxygen Saturation 96% 06/29/2024 1:39 PM AD OPERATIONS COORDINATOR Inhaled Oxygen Concentration - - Weight 89 kg (196 lb 3.2 oz) 06/29/2024 1:39 PM AD OPERATIONS COORDINATOR Height 162.6 cm (5' 4 ) 06/29/2024 1:39 PM AD OPERATIONS COORDINATOR Body Mass Index 33.68 06/29/2024 1:39 PM AD OPERATIONS COORDINATOR Plan of Treatment Upcoming Encounters Date Type Department Care Team (Late st Contact Info) Description 07/12/2024 1:00 PM AD OPERATIONS COORDINATOR Laboratory Only [facility] Internal Medicine - [address] [phone] Sandy Hammond FNP [address] [place] [address] 08/23/2024 3:00 PM CDT Office Visit [facility] - [address], [address] [place] [address] Macario Han MD [address] [place] [address] Health Maintenance Due Date Last Done Comments [...] 04/09, 08/08/2022, Additional history exists PHQ-2 (Physician [place]) Completed 06/29/2024 Meningococcal B Vaccine Aged Out [...] Relevant to Health Maintenance Insurance Care Teams Heel Splitter Relationship Specialty Start Date End Date Sandy Hammond FNP [address] [facility] [place] [address] PCP - General NURSE PRACTITIONER 11/19/17
[2024-07-10 16:12] LABS: Basophils Absolute Auto 0.1 K/mm3 (0.0-0.1); Basophils Percent Auto 0.7 % (0.2-1.2); Eosinophils Absolute Auto 0.2 K/mm3 (0-0.3); Eosinophils Percent Auto 2.6 % (0-4.4); Hematocrit 41.2 % (37.0-47.0); Hemoglobin 13.7 g/dL (12.0-15.0); Immature Granulocyte Absolute 0.02 K/mm3 (0.00-0.031); Immature Granulocyte Percent A 0.2 % (0-0.5); Lymphocytes Absolute Auto 1.46 K/mm3 (0.9-3.2); Lymphocytes Percent Auto 17.6 % (18.3-44.2); Mean Corpuscular HGB Conc 33.3 g/dl (32-36); Mean Corpuscular Hemoglobin 31.5 pg (26-34); Mean Corpuscular Volume 94.7 fl (80-100); Mean Platelet Volume 11.1 fl (7.4-10.4); Monocytes Absolute Auto 0.5 K/mm3 (0.1-0.6); Monocytes Percent Auto 6.3 % (2.6-8.5); Neutrophils Percent Auto 72.6 % (45.5-73.1); Platelet Count Result 187 k/mm3 (150-375); Red Blood Count 4.35 M/mm3 (4.2-5.4); Red Cell Distribution Width 13.2 % (11.5-14.5); White Blood Count 8.3 K/mm3 (4.5-10.0)
[2024-07-10 16:20] LABS: Estimated CRCL calculation 47 ml/min; Estimated Glomerular Filt Rate 46
[2024-07-10 16:35] LABS: Alanine Aminotransferase 30 U/L (6-35); Albumin Level 4.3 g/dL (3.5-5.1); Alkaline Phosphatase 77 U/L (38-126); Anion Gap 8 mmol/L (4-12); Aspartate Amino Transferase 25 U/L (14-36); Bilirubin,Total 0.9 mg/dL (0.2-1.3); Blood Urea Nitrogen 20 mg/dL (7-17); Calcium 9.9 mg/dL (8.4-10.2); Carbon Dioxide 27 mmol/L (22-30); Chloride 102 mmol/L (98-107); Estimated CRCL calculation 58 ml/min; Estimated Glomerular Filt Rate 59; Glucose 94 mg/dL (65-110); Lipase 48 U/L (23-300); Potassium 3.9 mmol/L (3.4-5.0); Sodium 137 mmol/L (137-145)
[2024-07-10 16:40] VITALS: BP 104/61; PULSE 95; RESP 17; O2SAT 95
[2024-07-10 16:43] LABS: BEDSIDEPREGUCG Negative (Negative)
[2024-07-10 16:46] LABS: Add Urine Microscopic? NO; Appearance Urine Clear (Clear); Bilirubin Urine Negative (Negative); Blood Urine Negative (Negative); Color Urine Yellow (Yellow); Glucose Urine UA 1+ mg/dL (Negative); Ketones Urine Negative (Negative); Leukocyte Esterase Ur Negative LEU/UL (Negative); Nitrate Urine Negative (Negative); Protein Urine Negative (Negative); Specific Grav Ur 1.024 (1.001-1.035); Urobilinogen Urine 0.2 mg/dL (<2.0)
[2024-07-10] MEDS: SODIUM CHLORIDE 0.9% IV 1,000 ML 500 ML IV CONT (16:53)
[2024-07-10 18:11] VITALS: BP 104/65; PULSE 89; RESP 16; TEMP 36.7; O2SAT 99
== END 2024-07-10 18:45 | disposition home or self-care (01) ==
PROVIDERS: Physician Assistant; Emergency Provider Emergency Medicine; PCP Nurse Practitioner Family
DX: K20.90 Esophagitis, unspecified without bleeding (principal); T50.995A Adverse effect of other drugs, medicaments and biological substances, initial encounter; I50.9 Heart failure, unspecified; I11.0 Hypertensive heart disease with heart failure; E03.9 Hypothyroidism, unspecified; Z79.82 Long term (current) use of aspirin; Z95.0 Presence of cardiac pacemaker; I48.91 Unspecified atrial fibrillation; Z79.01 Long term (current) use of anticoagulants; J45.909 Unspecified asthma, uncomplicated
CPT/HCPCS: 36415; 74177; 80053; 81003; 81025; 83690; 85025; 96360; 96361; 99284; J7030; Q9967

== ENCOUNTER 2024-09-05 19:52 | Emergency (ER) | payer OTHER, SELFPAY ==
--- NOTE | ~2024-09-05 | CT_ITS ---
CT ANGIOGRAM NECK AND HEAD History: Dizziness, left eye visual defect. Technique: Serial spiral axial images through the head and neck were obtained during arterial phase I V injection of 100 cc of Omnipaque 350. 3-D postprocessing and MIP images were then reconstructed on the remote workstation. Dose reduction technique was used on this scan by utilizing automated exposur e control and iterative reconstruction technique. The dose-length product (DLP) was 996.02 mGy-cm. CTA neck findings: Bilateral vertebral arteries are patent. Bowel, carotid, internal carotid, and ex ternal carotid arteries are patent. No stenosis or large vessel occlusion. No aneurysm. The proximal right internal carotid artery demonstrates 0% stenosis relative to the normal distal artery lumen wong meter. The proximal left internal carotid artery demonstrates 0% stenosis relative to the normal dist al artery lumen diameter. 2.6 cm left thyroid lobe nodule noted, with probable multiple cystic portions.. CTA head findings: Distal vertebral arteries, basilar artery, and posterior cerebral arteries are pat ent. Distal internal carotid arteries, middle cerebral arteries, and anterior cerebral arteries are p atent. No stenosis or large vessel occlusion. No aneurysm. Impression: No significant vascular abnormality. Thyroid nodule, as above. Consider thyroid ultrasound. Reviewed, dictated and finalized at location M. Impression: No significant vascular abnormality. Thyroid nodule, as above. Consider thyroid ultrasound.
--- NOTE | ~2024-09-05 | XR_ITS ---
EXAMINATION: XR chest 2V Exam Date/Time: 09/05/2024 20:21 CDT HISTORY: dizziness, pacemaker Comparison: 08/17/2019. RESULT: Lines, tubes, and devices: Left chest pacer/AICD. The position of the pacing unit has shifted slight ly in the chest. Considerable coiling and overlap of the leads makes assessment for lead fracture dif ficult. Lungs and pleura: Clear. Cardiomediastinal silhouette: Stable. Other: No acute osseous or upper abdominal finding. IMPRESSION: No acute cardiopulmonary process. The pacer/AICD unit is shifted slightly in the chest. Considerable lead coiling and overlap makes ass essment for lead fracture difficult. Reviewed, dictated and finalized at location K. IMPRESSION: No acute cardiopulmonary process. The pacer/AICD unit is shifted slightly in the chest. Considerable lead coiling and overlap makes assessment for lead fracture difficult.
--- NOTE | ~2024-09-05 | CT_ITS ---
Non-contrast Head CT History: CVA Technique: Axial non-contrast imaging of the brain was performed. Dose reduction technique was used on this scan by utilizing automated exposure control and iterative reconstruction technique. The dose -length product (DLP) was 605.33 mGy-cm. Findings: There is no evidence of intracranial hemorrhage, mass lesion, or acute infarct. Small arac hnoid cyst present anterior left temporal fossa. Brain parenchyma appears normal. The ventricles and subarachnoid spaces are normal in size. The calvarium appears normal. The visualized paranasal sin uses and mastoid air cells are clear. Impression: No significant abnormality seen. Reviewed, dictated and finalized at location . Impression: No significant abnormality seen.
[2024-09-05 19:47] VITALS: BP 118/72; PULSE 108; RESP 16; TEMP 36.9; O2SAT 97
[2024-09-05 19:55] VITALS: PULSE 108
--- NOTE | 2024-09-05 19:58 | ECG_ITS ---
Test Date: 2024-09-05 20:02:18 Measurements Intervals [place] Rate: 105 P: 43 MT: 136 QRS: 158 QRSD: 156 T: -5 QT: 394 QTc: 522 Interpretive Statements ELECTRONIC VENTRICULAR PACEMAKER ATYPICAL ECG No previous ECG available for comparison Electronically Signed On 09-06-2024 06:50:22 CDT by Mack Solano M.D.
[2024-09-05 20:07] LABS: Basophils Absolute Auto 0.1 K/mm3 (0.0-0.1); Basophils Percent Auto 0.6 % (0.2-1.2); Eosinophils Absolute Auto 0.2 K/mm3 (0-0.3); Eosinophils Percent Auto 2.5 % (0-4.4); Hematocrit 41.5 % (37.0-47.0); Hemoglobin 13.7 g/dL (12.0-15.0); Immature Granulocyte Absolute 0.04 K/mm3 (0.00-0.031); Immature Granulocyte Percent A 0.4 % (0-0.5); Lymphocytes Absolute Auto 2.07 K/mm3 (0.9-3.2); Lymphocytes Percent Auto 21.2 % (18.3-44.2); Mean Corpuscular Hemoglobin 31.4 pg (26-34); Mean Corpuscular Volume 95.2 fl (80-100); Mean Platelet Volume 11.3 fl (7.4-10.4); Monocytes Absolute Auto 0.6 K/mm3 (0.1-0.6); Monocytes Percent Auto 6.3 % (2.6-8.5); Neutrophils Absolute Auto 6.7 K/mm3 (1.3-6.7); Platelet Count Result 214 k/mm3 (150-375); Red Blood Count 4.36 M/mm3 (4.2-5.4); Red Cell Distribution Width 12.9 % (11.5-14.5); White Blood Count 9.8 K/mm3 (4.5-10.0)
--- OUTSIDE RECORDS SUMMARY | 2024-09-05 20:09 | XMS_ITS | Continuity of Care Document ---
Author Organization [facility] [employer] Address [facility] [place] [address] Phone Care Team Providers Care Ceramics Engineer Name Role Phone Lalo Ochoa MD Unavailable [...] Diagnoses Date Provider Providers Copied on Encounter [facility] , [facility], [address] [place] [address], [id number] , tel:[phone] [facility] No Information 6 Gabriela May. [address] [place] [address], [id number] , [place]. tel:[phone] [facility] , [facility], [address] [place] [address], [id number] , tel: [phone] [facility] No Information 6 Gabriela May. [address] [place] [address], [id number] , . tel:[phone] [facility], [address] [place] [address], [id number] , tel:[phone] Main Office Encntr for adjust and mgmt of automatic implntbl card defibChronic systolic (congestive) heart failureOth complications of the puerperium, [facility] 6 Hardik Flores. [address] [place] [address], [id number] , [place]. tel:[phone] Referring Provider: Mark Tovar, [address] [place] [address], [id number] . tel:[phone] [facility], [address] [place] [address], [id number] , tel:[phone] Main Office EKG (chief complaint) Supraventricular tachycardiaUnspecifie d atrial flutter 6 Hardik Flores. [address] [place] [address], [address] [place] [address] , . [phone] Referring Provider: Mark Tovar, [address] [place] [address], [id number] . tel:[phone] [facility], [address] [place] [address], [id number] , [phone] Main Office Encntr for adjust and mgmt of automatic implntbl card defibOth complications of the puerperium, [facility] 6 Hardik Flores. [address] [place] [address], [id number] , [place]. [phone] Referring Provider: Mark Tovar, [address] [place] [address], [id number] . tel:[phone] OFFICE/OUTPA TIENT VISIT, EST [facility], [address] [place] [address], [id number] , tel:[phone] Main Office Follow up (chief complaint) Chronic systolic (congestive) heart failureVentricular fibrillationPresence of automatic (implantable) cardiac defibrillatorOther cardiomyopathiesSupra ventricular tachycardiaEssential (primary) hypertensionHyperlipi demia, unspecifiedHypothyroi dism, unspecifiedUnspecifie d atrial flutterObesity 6 Axel Gee. [address] [place] [address], [address] [place] [address] , . tel: [phone] Referring Provider: Mark Tovar, [address] [place] [address], [address] [place] [address] . tel:[phone] [facility], [address] [place] [address], [address] [place] [address] , tel: [phone] Main Office No Information 6 Hardik Flores. [address] [place] [address], [address] [place] [address] , . tel: [phone] [facility], [address] [place] [address], [address] [place] [address] , tel: [phone] Main Office Encntr for adjust and mgmt of automatic implntbl card defibChronic systolic (congestive) heart failurePalpitations 5 Hardik Flores. [address] [place] [address], [address] [place] [address] , . tel: [phone] Referring Provider: Mark Tovar, [address] [place] [address], [address] [place] [address] . tel:[phone] [facility], [address] [place] [address], [address] [place] [address] , tel: [phone] Main Office No Information 5 Hardik Flores. [address] [place] [address], [address] [place] [address] , . tel: [phone] Referring Provider: Mark Tovar, [address] [place] [address], [id number] . tel:[phone] [facility], [address] [place] [address], [address] [place] [address] , tel: [phone] Main Office No Information Hardik Flores. [address] [place] [address], [address] [place] [address] , [place]. tel: [phone] Referring Provider: Mark Tovar, [address] [place] [address], [address] [place] [address] . tel:[phone] OFFICE/OUTPA TIENT VISIT, [facility], [address] [place] [address], [address] [place] [address] , tel: [phone] [facility] No Information 5 Gabriela May. [address] [place] [address], [address] [place] [address] , [place]. tel: [phone] Referring Provider: Lalo Alfredo, [address] [place] [address], [id number] . tel:[phone] [facility], [address] [place] [address], [address] [place] [address] , tel: [phone] Main Office No Information 5 Hardik Flores. [address] [place] [address], [address] [place] [address] , [place]. tel: [phone] Referring Provider: Mark Tovar, [address] [place] [address], [address] [place] [address] . tel:[phone] OFFICE/OUTPA TIENT VISIT, [facility], [address] [place] [address], [address] [place] [address] , tel: [phone] [facility] No Information 5 Edward Flores. [address] [place] [address], [address] [place] [address] , [place]. tel: [phone] Referring Provider: Mark Guzman, [address] [place] [address], [address] [place] [address] . tel:[phone] [facility], [address] [place] [address], [id number] , tel: [phone] [facility] OP No Information 5 Hardik Flores. [address] [place] [address], [id number] , [place]. tel: [phone] Referring Provider: Mark Tovar, [address] [place] [address], [address] [place] [address] . tel:[phone] OFFICE/OUTPA TIENT VISIT, [facility], [address] [place] [address], [id number] , [place] tel: [phone] Main Office No Information 5 Hardik Flores. [address] [place] [address], [id number] , [place]. tel: [phone] Referring Provider: Mark Tovar, [address] [place] [address], [address] [place] [address] . tel:[phone] [facility], [address] [place] [address], [id number] , tel: [phone] Main Office No Information Hardik Flores. [address] [place] [address], [address] [place] [address] , [place]. tel: [phone] Referring Provider: Mark Tovar, [address] [place] [address], [address] [place] [address] . tel:[phone] [facility], [address] [place] [address], [id number] , tel: [phone] [facility] No Information 5 Gabriela May. [address] [place] [address], [id number] , [place]. tel: [phone] Referring Provider: Lalo Alfredo, [address] [place] [address], [address] [place] [address] . tel:[phone] OFFICE/OUTPA TIENT VISIT, [facility], [address] [place] [address], [id number] , tel: [phone] Main Office No Information Hardik Flores. [address] [place] [address], [id number] , [place]. [phone] Referring Provider: Lalo Alfredo, [address] [place] [address], [id number] . tel:[phone] OFFICE/OUTPA TIENT VISIT, [facility] , [facility], [address] [place] [address], [id number] , [phone] [facility] No Information 5 Gabriela May. [address] [place] [address], [id number] , . [phone] Referring Provider: Lalo Alfredo, [address] [place] [address], [id number] . tel:[phone] Family History Family Member Type Diagnosis Age At Onset No Information Payers Payer name Insurance type Covered democrat ID Authoriza tion(s) No Information Social History [...]
--- OUTSIDE RECORDS SUMMARY | 2024-09-05 20:10 | XMS_ITS | Encounter Summary ---
Author Organization [facility] Address [facility] [place] [address] Care Team Providers Care Director Of Loss Prevention Name Role Phone Sandy Hammond Primary Care Provider [phone] Encounter Details Date Type Department Care Team (Late st Contact Info) Description 01/10/2020 Spring Mobile [employer] Message Enc [facility] Medical Group Family & Internal Medicine [address] [place] [phone] Sandy Hammond FNP [address] [place] [address] Medication Questions Social History Tobacco [...] Care Team (Late st Contact Info) Description 11/19/2024 9:40 AM CDT Office Visit [facility] Medical Group Multispecialty Care - [facility] [address] [facility], [address] [place] [address] Macario Han MD [address] [place] [address] documented as of this encounter Visit Diagnoses Not on filedocumented in this encounter Additional Health Concerns Infection Onset Date Last Indicated Resolved Time COVID-19 Rule Out 01/11/2020 01/20/2020 03/20/2020 12:33 AM CDT COVID-19 Rule Out 05/08/2020 05/11/2020 05/19/2020 3:16 PM COMMERCIAL CREDIT OFFICER COVID-19 Rule Out 07/18/2020 07/18/2020 07/20/2020 7:00 AM COMMERCIAL CREDIT OFFICER COVID-19 Rule Out 06/07/2021 06/07/2021 06/14/2021 12:32 AM COMMERCIAL CREDIT OFFICER COVID-19 Rule Out 12/13/2021 12/13/2021 12/13/2021 4:48 PM CDT COVID-19 Rule Out 12/13/2021 12/13/2021 12/14/2021 4:35 PM CDT COVID-19 Rule Out 06/27/2022 06/27/2022 06/28/2022 1:09 PM COMMERCIAL CREDIT OFFICER documented as of this encounter Care Teams Director Of Loss Prevention Relationship Specialty Start Date End Date Sandy Hammond FNP [address] [place] [address] PCP - General NURSE PRACTITIONER 11/19/17 documented as of this encounter
--- OUTSIDE RECORDS SUMMARY | 2024-09-05 20:10 | XMS_ITS | Encounter Summary ---
Author Organization [facility] Address [facility] [place] [address] Care Team Providers Care Refrigeration Technician Name Role Phone Sandy Hammond Primary Care Provider [phone] Encounter Details Date Type Department Care Team (Late st Contact Info) Description 06/08/2021 Handle Message Enc [facility] Medical Group Family & Internal Medicine [address] [place] [phone] Sandy Hammond FNP [address] [place] [address] Covid test Social History Tobacco [...] Description 11/19/2024 9:40 AM CDT Office Visit [facility] Medical Group Multispecialty Care - [facility] 3 [facility], [address] [place] [address] Macario Han MD 3 [place] [address] documented as of this encounter Visit Diagnoses Not on filedocumented in this encounter Additional Health Concerns Infection Onset Date Last Indicated Resolved Time COVID-19 Rule Out 06/07/2021 06/07/2021 06/14/2021 12:32 AM SAND OPERATOR COVID-19 Rule Out 12/13/2021 12/13/2021 12/13/2021 4:48 PM CDT COVID-19 Rule Out 12/13/2021 12/13/2021 12/14/2021 4:35 PM CDT COVID-19 Rule Out 06/27/2022 06/27/2022 06/28/2022 1:09 PM SAND OPERATOR Assessment Noted Time PHQ-9 Depression Total Score: 3 11/08/19 21 1:12 PM CDT documented as of this encounter Care Teams Refrigeration Technician Relationship Specialty Start Date End Date Sandy Hammond FNP [address] [place] [address] PCP - General NURSE PRACTITIONER 11/19/17 documented as of this encounter
--- OUTSIDE RECORDS SUMMARY | 2024-09-05 20:10 | XMS_ITS | Encounter Summary ---
Author Organization [facility] Address [facility] [place] [address] Care Team Providers Care Computer Assembler Name Role Phone Sandy Hammond Primary Care Provider [phone] Encounter Details Date Type Department Care Team (Late Contact Info) Description 06/08/2021 Graitec Message Enc [facility] Medical Group Family & Internal Medicine [address] [place] [phone] Sandy Hammond FNP [address] [place] [address] Update Social History Tobacco Use Types Packs/Day [...] Description 11/19/2024 9:40 AM CDT Office Visit [facility] Medical Group Multispecialty Care - [facility] 3 [facility], [address] [place] [address] Macario Han MD 3 [place] [address] documented as of this encounter Visit Diagnoses Not on filedocumented in this encounter Additional Health Concerns Infection Onset Date Last Indicated Resolved Time COVID-19 Rule Out 06/07/2021 06/07/2021 06/14/2021 12:32 AM PROPERTY INSURANCE AGENT COVID-19 Rule Out 12/13/2021 12/13/2021 12/13/2021 4:48 PM CDT COVID-19 Rule Out 12/13/2021 12/13/2021 12/14/2021 4:35 PM CDT COVID-19 Rule Out 06/27/2022 06/27/2022 06/28/2022 1:09 PM PROPERTY INSURANCE AGENT Assessment Noted Time PHQ-9 Depression Total Score: 3 11/08/19 21 1:12 PM CDT documented as of this encounter Care Teams Computer Assembler Relationship Specialty Start Date End Date Sandy Hammond FNP [address] [place] [address] PCP - General NURSE PRACTITIONER 11/19/17 documented as of this encounter
--- OUTSIDE RECORDS SUMMARY | 2024-09-05 20:10 | XMS_ITS | Encounter Summary ---
Author Organization [facility] Address [address] [place] [address] Care Team Providers Care Psych Therapist Name Role Phone Sandy Hammond RANULFO Primary Care Provider [phone] Encounter Details Date Type Department Care Team (Late Contact Info) Description 12/29/2023 [employer] Message Enc [facility] Medical [facility] [phone] [place] [address] Angel Luis, [facility] Provider 12/30/23 Appointment Social History Tobacco [...] Encounters Date Type Department Care Team (Late Contact Info) Description 11/19/2024 9:40 AM CDT Office Visit [facility] Medical Group Multispecialty Care - [facility] 3 [facility], [address] [place] [address] Macario Han MD 3 [place] [address] documented as of this encounter Visit Diagnoses Not on filedocumented in this encounter Additional Health Concerns Assessment Noted Time PHQ-9 Depression Total Score: 6 10/13/19 22 11:56 AM CDT documented as of this encounter Care Teams Psych Therapist Relationship Specialty Start Date End Date Sandy Hammond FNP [address] [place] [address] PCP - General NURSE PRACTITIONER 11/19/17 documented as of this encounter
--- OUTSIDE RECORDS SUMMARY | 2024-09-05 20:10 | XMS_ITS | Encounter Summary ---
Author Organization [facility] Address [address] [place] [address] Care Team Providers Care Director Sterile Processing Name Role Phone Sandy Hammond Primary Care Provider [phone] Encounter Details Date Type Department Care Team (Late st Contact Info) Description 08/02/2020 People[employer] Authoriat Message Enc [facility] Medical Group Family & Internal Medicine [address] [place] [phone] Sandy Hammond FNP [address] [place] [address] RE: FW: Question Social History [...] Description 11/19/2024 9:40 AM CDT Office Visit [facility] Medical Group Multispecialty Care - [facility] 3 [facility], [address] [place] [address] Macario Han MD 3 [place] [address] documented as of this encounter Visit Diagnoses Not on filedocumented in this encounter Additional Health Concerns Infection Onset Date Last Indicated Resolved Time COVID-19 Rule Out 06/07/2021 06/07/2021 06/14/2021 12:32 AM BAND TEACHER COVID-19 Rule Out 12/13/2021 12/13/2021 12/13/2021 4:48 PM CDT COVID-19 Rule Out 12/13/2021 12/13/2021 12/14/2021 4:35 PM CDT COVID-19 Rule Out 06/27/2022 06/27/2022 06/28/2022 1:09 PM BAND TEACHER documented as of this encounter Care Teams Director Sterile Processing Relationship Specialty Start Date End Date Sandy Hammond FNP [address] [place] [address] PCP - General NURSE PRACTITIONER 11/19/17 documented as of this encounter
--- OUTSIDE RECORDS SUMMARY | 2024-09-05 20:10 | XMS_ITS | Encounter Summary ---
Author Organization [facility] Address [facility] [place] [address] Care Team Providers Care Tire Trucker Name Role Phone Sandy Hammond Primary Care Provider [phone] Encounter Details Date Type Department Care Team (Late st Contact Info) Description 06/18/2021 Call[employer] Message Enc [facility] Medical Group Family & Internal Medicine [address] [place] [phone] Sandy Hammond FNP [address] [place] [address] Covid Headaches Social History Tobacco [...] Description 11/19/2024 9:40 AM CDT Office Visit [facility] Medical Group Multispecialty Care - [facility] 3 [facility], [address] [place] [address] Macario Han MD 3 [place] [address] documented as of this encounter Visit Diagnoses Not on filedocumented in this encounter Additional Health Concerns Infection Onset Date Last Indicated Resolved Time COVID-19 Rule Out 12/13/2021 12/13/2021 12/13/2021 4:48 PM CDT COVID-19 Rule Out 12/13/2021 12/13/2021 12/14/2021 4:35 PM CDT COVID-19 Rule Out 06/27/2022 06/27/2022 06/28/2022 1:09 PM HUMAN RESOURCES TEMP Assessment Noted Time PHQ-9 Depression Total Score: 3 11/08/19 21 1:12 PM CDT documented as of this encounter Care Teams Tire Trucker Relationship Specialty Start Date End Date Sandy Hammond FNP [address] [place] [address] PCP - General NURSE PRACTITIONER 11/19/17 documented as of this encounter
--- OUTSIDE RECORDS SUMMARY | 2024-09-05 20:10 | XMS_ITS | Encounter Summary ---
Author Organization [facility] Address [address] [place] [address] Phone Care Team Providers Care Rent Collector Name Role Phone Sandy Hammond APRN, MANAGER ENT Primary Care Provider Jorge Ruano MD Unavailable Encounter Details Date Type Department Care Team (Late st Contact Info) Description 03/15/2024 Telephone [facility] [address] [place] [address] Jorge Ruano MD [address] [place] [address] Social History Tobacco Use Types [...] on filedocumented in this encounter Care Teams Rent Collector Relationship Specialty Start Date End Date Sandy Hammond, AMARI, MANAGER ENT [address] [place] [address] PCP - General Internal Medicine 09/03/23 Jorge Ruano MD [address] [place] [phone] Consulting Physician Oncology 09/03/23 documented as of this encounter
--- OUTSIDE RECORDS SUMMARY | 2024-09-05 20:10 | XMS_ITS | Encounter Summary ---
Author Organization [facility] Address [address] [place] [address] Care Team Providers Care Director Global Name Role Phone Sandy Hammond Primary Care Provider [phone] Encounter Details Date Type Department Care Team (Late st Contact Info) Description 05/10/2020 [email or web address] Message Enc [facility] Medical Group Family & Internal Medicine [facility] [address] [place] [phone] Sandy Hammond FNP [address] [place] [address] RE: Referral Request Social History Tobacco Use [...] Description 11/19/2024 9:40 AM CDT Office Visit [facility] Medical Group Multispecialty Care - [facility] 3 [facility], [address] [place] [address] Macario Han MD [address] [place] [address] documented as of this encounter Visit Diagnoses Not on filedocumented in this encounter Additional Health Concerns Infection Onset Date Last Indicated Resolved Time COVID-19 Rule Out 05/08/2020 05/11/2020 05/19/2020 3:16 PM MANDARIN TUTOR COVID-19 Rule Out 07/18/2020 07/18/2020 07/20/2020 7:00 AM MANDARIN TUTOR COVID-19 Rule Out 06/07/2021 06/07/2021 06/14/2021 12:32 AM MANDARIN TUTOR COVID-19 Rule Out 12/13/2021 12/13/2021 12/13/2021 4:48 PM CDT COVID-19 Rule Out 12/13/2021 12/13/2021 12/14/2021 4:35 PM CDT COVID-19 Rule Out 06/27/2022 06/27/2022 06/28/2022 1:09 PM MANDARIN TUTOR documented as of this encounter Care Teams Director Global Relationship Specialty Start Date End Date Sandy Hammond FNP [address] [place] [address] PCP - General NURSE PRACTITIONER 11/19/17 documented as of this encounter
--- OUTSIDE RECORDS SUMMARY | 2024-09-05 20:10 | XMS_ITS | Encounter Summary ---
Author Organization [facility] Address [address] [place] [address] Care Team Providers Care Quilt Sewer Name Role Phone Sandy Hammond Primary Care Provider [phone] Encounter Details Date Type Department Care Team (Late st Contact Info) Description 09/06/2021 [employer] Message Enc [facility] Medical Group Family & Internal Medicine [address] [place] [phone] Sandy Hammond FNP [address] [place] [address] UTI symptoms Social History Tobacco [...] Description 11/19/2024 9:40 AM CDT Office Visit [facility] Medical Group Multispecialty Care - [facility] 3 [facility], [address] [place] [address] Macario Han MD 3 [place] [address] documented as of this encounter Visit Diagnoses Not on filedocumented in this encounter Additional Health Concerns Infection Onset Date Last Indicated Resolved Time COVID-19 Rule Out 12/13/2021 12/13/2021 12/13/2021 4:48 PM CDT COVID-19 Rule Out 12/13/2021 12/13/2021 12/14/2021 4:35 PM CDT COVID-19 Rule Out 06/27/2022 06/27/2022 06/28/2022 1:09 PM MUSIC ENGINEER Assessment Noted Time PHQ-9 Depression Total Score: 3 11/08/19 21 1:12 PM CDT documented as of this encounter Care Teams Quilt Sewer Relationship Specialty Start Date End Date Sandy Hammond FNP [address] [place] [address] PCP - General NURSE PRACTITIONER 11/19/17 documented as of this encounter
--- OUTSIDE RECORDS SUMMARY | 2024-09-05 20:10 | XMS_ITS | Clinical Summary ---
Author Organization [facility] Address [address] [place] [address] Care Team Providers Care Ship Wirer Name Role Phone Henry Vivas RANULFO Primary Care Provider [phone] Allergies Active Allergy Reactions Criticality Noted Date [...] Cholecalciferol (VITAMIN D) 125 MCG (5000 UT) CapIndications:Vit oviedo D deficiency Take 1 capsule by mouth daily. 90 capsule 3 01/26/20 20 Active ENTRESTO 24-26 MG tablet Take 1 tablet by mouth 2 (two) times daily. 10/19/19 21 Active FARXIGA 5 MG Tab Take 1 tablet by mouth daily. 01/25/20 22 Active fluconazole (DIFLUCAN) 150 MG tabletIndications: Antibiotic-induced yeast infection Take one tablet now and you may repeat one tablet 72 hours for continued symptoms 2 tablet 1 10/30/19 24 Active diclofenac EC (VOLTAREN) 50 MG tabletIndications: Peripheral polyneuropathy Take 1 tablet (50 mg total) by mouth 3 (three) times daily as needed (pain). 180 tablet 3 10/30/19 24 Active levothyroxine (SYNTHROID) 50 MCG tabletIndications: Acquired hypothyroidism Take 1 tablet (50 mcg total) by mouth every morning. 90 tablet 1 10/30/19 24 Active levalbuterol (XOPENEX HFA) 45 MCG/ACT inhalerIndications :Shortness of breath INHALE 1 PUFF INTO THE LUNGS EVERY 4 HOURS NEEDED FOR WHEEZING 45 g 11/06/19 24 Active amitriptyline (ELAVIL) 100 MG tabletIndications: Migraine without aura and without status migrainosus, not intractable TAKE 1 TABLET(100 MG) BY MOUTH DAILY 90 tablet 2 12/29/19 24 Active furosemide (LASIX) 40 MG tablet Take 2 tablets (80 mg total) by mouth daily. 12/16/19 24 Active metoprolol succinate ER (TOPROL-XL) 50 MG 24 hr tabletIndications: Chronic congestive heart failure, unspecified heart failure type (CMS/HCC HHS/HCC) TAKE 1 TABLET(50 MG) BY MOUTH DAILY 90 tablet 2 01/15/20 24 Active dicyclomine (BENTYL) 10 MG capsuleIndications :Irritable bowel syndrome, unspecified type TAKE 1 CAPSULE(10 MG) BY MOUTH FOUR TIMES DAILY BEFORE MEALS AND AT NIGHT 240 capsule 1 03/22/20 24 Active traMADol-acetamino phen (ULTRACET) 37.5-325 MG tabletIndications: Chronic bilateral low back pain without sciatica TAKE 1 TABLET BY MOUTH EVERY 4 HOURS NEEDED FOR CHRONIC PAIN OR PAIN 60 tablet 2 04/05/20 24 Active zolpidem (AMBIEN) 5 MG tabletIndications: Primary insomnia Take 1 tablet (5 mg total) by mouth nightly as needed for Sleep. 90 tablet 2 06/17/19 25 Active potassium chloride CR (K-TAB) 10 MEQ Tab CR tabletIndications: Muscle cramps TAKE 1 TABLET(10 MEQ) BY MOUTH DAILY 90 tablet 1 06/17/19 25 Active omeprazole (PRILOSEC) 40 MG capsuleIndications :GERD (gastroesophageal reflux disease) TAKE 1 CAPSULE(40 MG) BY MOUTH DAILY 90 capsule 06/21/19 25 Active WEGOVY 0.25 mg/dose injection (PEN) 06/17/19 25 Active ondansetron (ZOFRAN-ODT) 4 MG disintegrating tabletIndications: Nausea Take 1 tablet (4 mg total) by mouth every 6 (six) hours as needed for Nausea. 30 tablet 06/29/19 25 Active spironolactone (ALDACTONE) 50 MG tabletIndications: Chronic congestive heart failure, unspecified heart failure type ([facility] HHS/HCC) TAKE 1 TABLET(50 MG) BY MOUTH DAILY 90 tablet 3 07/26/19 25 Active LORazepam (ATIVAN) 1 MG tabletIndications: Anxiety TAKE 1 TABLET BY MOUTH EVERY 8 HOURS NEEDED 30 tablet 2 08/14/19 25 Active LORazepam (ATIVAN) 1 MG tabletIndications: Anxiety TAKE 1 TABLET BY MOUTH EVERY 8 HOURS NEEDED 30 tablet 07/15/19 25 025 Discontin ued(Reord er) Active Problems Problem Noted Date Diagnosed Date Elevated triglycerides with high cholesterol Congestive heart failure ([facility]) 04/18 Cervical radiculopathy 08/09/2022 Bulge of cervical disc without myelopathy 2022 Gastroesophageal reflux dise ase, unspecified whether esophagitis present 12/19/2021 COVID-19 06/08/2021 Degenerative disc disease, lumbar 11/07/2020 Vaginal yeast infection 08/22/2020 Atrial tachycardia ([facility]) 02/23/2020 Anxiety 01/26/2020 High risk medication use [...] 09/22/2017 Migraine 09/18/2017 PAF (paroxysmal atrial fibrillation) ([facility] HH S/HCC) 08/08/2017 Insomnia 07/30/2017 Nausea 07/30/2017 Shortness of breath 07/30/2017 NICM (nonischemic cardiomyopathy) ([facility] HHS/H CC) 04/11/2017 Overview (09/25/2018): Overview: Peripartum CM [...] TR, RVSP 30-35 mmHg DCM (dilated cardiomyopathy) ([facility]) 1 06/11/2016 Chronic systolic CHF (conges tive heart failure) ([facility]) 10/29/2016 Disorder of cardiac pacemaker electrode 07/31/19 17 Overview (09/25/2018): Overview: Pacemaker lead malfunction, initial encounter S/P catheter ablation of slow pathway 04/26/2016 Overview (09/25/2018): Overview: AVNRT ablation Implantable defibrillator reprogramming/check Overview (09/25/2018): Overview: [employer] ICD - Unify Cailin [id number] SN: [id number] - Implanted 09/19/2014 by UNKNOWN RA: [facility] 1488 SN: [id number] (Implanted 12/30/2003) RV: [facility] 1581 SN: [id number] (Implanted 12/30/2003) LV: [facility] [id number] SN: [id number] (Implanted 08/29/[address] Queen) VT (ventricular tachycardia) ([facility]) 1 VF (ventricular fibrillation) ([facility]) 03/25/2016 Biventricular ICD (implantab le cardioverter-defibrillator) in place 03/25/2016 Overview (11/07/2020): [employer] ICD - Unify Assura [id number] SN: [id number] - Implanted 09/19/2014 by UNKNOWN RA: [facility] 1488 SN: [id number] (Implanted 12/30/2003) RV: M [id number] SN: [id number] (Implanted 12/30/2003) LV: [facility] [id number] SN: [id number] (Implanted 08/29/[address] Queen) Overview: [facility] ICD - Unify Assura [id number] SN: [id number] - Implanted 09/19/2014 by UNKNOWN RA: [facility] 1488 SN: [id number] (Implanted 12/30/2003) RV: [facility] 1581 SN: [id number] (Implanted 12/30/2003) LV: [facility] [id number] SN: [id number] (Implanted 08/29/[address] Queen) Resolved Problems [...] Encounters Date Type Department Care Team Description 08/16/2024 10:30 AM CDT - 08/16/2024 11:59 PM CDT Hospital Encounter [facility] [place] [address] Henry Vivas FNP Discharge Disposition: Home or Self Care (Routine Discharge) 08/16/2024 Travel 08/05/2024 Telephone [facility] Family & Internal Medicine [address] [address] Henry Vivas FNP Radiology Results 08/04/2024 2:56 PM CHIEF MEDICAL TECHNOLOGIST - 08/04/2024 11:59 PM CHIEF MEDICAL TECHNOLOGIST Hospital Encounter [facility] Mamm[facility] [address] [place] [address] Henry Vivas, RANULFO Discharge Disposition: Home or Self Care (Routine Discharge) 08/04/2024 Travel 07/21/2024 Telephone [facility] Internal [address] [address] Henry Vivas FNP Lab Results 07/19/2024 1:00 PM CHIEF MEDICAL TECHNOLOGIST Laboratory Only [address] [address] Henry Vivas FNP 07/19/2024 - 07/19/2024 11:59 PM CHIEF MEDICAL TECHNOLOGIST Hospital Encounter [facility] [address] [place] [address] Henry Vivas FNP Discharge Disposition: Home or Self Care (Routine Discharge) 07/19/2024 Travel 07/16/2024 MyChart Message Enc [address] [address] Henry Vivas FNP Sore Throat 07/15/[address] [address] Henry Vivas FNP Medication Request 07/10/2024 Scan [facility] Scanned, [facility] 07/10/2024 Scan [facility] Scanned, [facility] Lab (SCAN); CT (SCAN) 06/29/2024 1:20 PM CHIEF MEDICAL TECHNOLOGIST Office Visit [address] [address] Henry Vivas FNP Follow Up 06/29/2024 Travel from Last [...] Comments Blood Pressure 108/51 06/29/2024 1:39 PM CHIEF MEDICAL TECHNOLOGIST Pulse 103 06/29/2024 1:39 PM CHIEF MEDICAL TECHNOLOGIST Temperature 37 C (98.6 F) 06/29/2024 1:39 PM CHIEF MEDICAL TECHNOLOGIST Respiratory Rate 14 06/29/2024 1:39 PM CHIEF MEDICAL TECHNOLOGIST Oxygen Saturation 96% 06/29/2024 1:39 PM CHIEF MEDICAL TECHNOLOGIST Inhaled Oxygen Concentration - - Weight 89 kg (196 lb 3.2 oz) 06/29/2024 1:39 PM CHIEF MEDICAL TECHNOLOGIST Height 162.6 cm (5' 4 ) 06/29/2024 1:39 PM CHIEF MEDICAL TECHNOLOGIST Body Mass Index 33.68 06/29/2024 1:39 PM CHIEF MEDICAL TECHNOLOGIST Plan of Treatment Upcoming Encounters Date Type Department Care Team (Late st Contact Info) Description 11/19/2024 9:40 AM CDT Office Visit [facility] Medical [facility] Multispecialty Care - [facility] [address] [facility], [address] [place] [address] Macario Han MD [address] [place] [address] Health Maintenance Due Date Last Done Comments Cervical Cancer Screening Pap Smear (Age 30 to 64) Every 3 Years 1966 Annual Physical 1969 Hepatitis B Vaccines (1 of 3 - 19+ 3-dose series) 1985 Cervical Cancer Screening Pap with HPV Testing (Age 30 to 64) Every 5 Years 1996 Cervical Cancer Screening with HPV 10/29/2024 Postponed [...] 06/29/2025 05/20/2019 Postponed from 07/15/2019 (Patient Refused) Mammogram Screening 08/16/2026 08/16/2024, 08/04/2024, 11/01/2021 Colorectal Cancer Screening Colonoscopy (10 Years) 01/21/2029 01/21/2019, 01/21/2019 DTaP, Tdap and Td Vaccines (6 - Td or Tdap) 04/18/2033 04/18/2023, 08/15/2016, 08/15/2016, Additional history exists PHQ-2 (Physician [place]) Completed 06/29/2024 Hepatitis C Completed 07/19/2024 Meningococcal B Vaccine Aged Out No l onger eligible based on patient's age to complete this topic Meningococcal Vaccine Aged Out No khushi ani eligible based on patient's age to complete this topic RSV Immunizations Under 20 Months Aged Out No longer eligible based on patient's age to complete this topic Procedures Procedure Name Priority Date/Time Associated Diagnosis Comments MG DIAG W YOSEPH LT DIGI Routine 08/16/2024 10:55 AM CDT Abnormal mammogram MG SCREENING W YOSEPH CYNTHIA DIGI Routine 08/04/2024 3:20 PM CHIEF MEDICAL TECHNOLOGIST Encounter for screening mammogram for malignant neoplasm of breast COLLECTION VENOUS BLOOD VENIPUNCTURE Routine 07/19/2024 1:23 PM CHIEF MEDICAL TECHNOLOGIST Encounter for hepatitis C screening test for low risk patient Acquired hypothyroidism Primary insomnia Vitamin B 12 deficiency Chronic systolic congestive heart failure (CMS/HCC HHS/HCC) Anxiety Vitamin D deficiency Elevated triglycerides with high cholesterol CBC W/DIFF AUTOMATED Routine 07/19/2024 1:22 PM CHIEF MEDICAL TECHNOLOGIST Chronic systolic congestive heart failure (CMS/HCC HHS/HCC) Anxiety LIPID PANEL Routine 07/19/2024 1:22 PM CHIEF MEDICAL TECHNOLOGIST Chronic systolic congestive heart failure (CMS/HCC HHS/HCC) Elevated triglycerides with high cholesterol VITAMIN D, 25 OH Routine 07/19/2024 1:22 PM CHIEF MEDICAL TECHNOLOGIST Vitamin D deficiency URIC ACID BLOOD Routine 07/19/2024 1:22 PM CHIEF MEDICAL TECHNOLOGIST Chronic systolic congestive heart failure (CMS/HCC HHS/HCC) Anxiety COMPREHENSIVE METABOLIC PANEL Routine 07/19/2024 1:22 PM CHIEF MEDICAL TECHNOLOGIST Chronic systolic congestive heart failure (CMS/HCC HHS/HCC) Anxiety VITAMIN B-12 Routine 07/19/2024 1:22 PM CHIEF MEDICAL TECHNOLOGIST Vitamin B 12 deficiency Primary insomnia FOLIC ACID SERUM Routine 07/19/2024 1:22 PM CHIEF MEDICAL TECHNOLOGIST Vitamin B 12 deficiency Primary insomnia MAGNESIUM Routine 07/19/2024 1:22 PM CHIEF MEDICAL TECHNOLOGIST Primary insomnia THYROID STIM HORMONE TSH Routine 07/19/2024 1:22 PM CHIEF MEDICAL TECHNOLOGIST Acquired hypothyroidism THYROXINE, FREE (FT4) Routine 07/19/2024 1:22 PM CHIEF MEDICAL TECHNOLOGIST Acquired hypothyroidism HEPATITIS C ANTIBODY Routine 07/19/2024 1:22 PM CHIEF MEDICAL TECHNOLOGIST Encounter for hepatitis C screening test for low risk patient CT GENERIC 07/10/2024 OUTSIDE LAB (SCAN ORDER) 07/10/2024 OUTSIDE LAB (SCAN ORDER) 07/10/2024 OUTSIDE LAB (SCAN ORDER) 07/10/2024 OUTSIDE LAB (SCAN ORDER) 07/10/2024 OUTSIDE LAB (SCAN ORDER) 07/10/2024 OUTSIDE LAB (SCAN ORDER) 07/10/2024 COLONOSCOPY Routine 01/21/2019 11:42 AM CDT from Last 3 Months or Most Recently Relevant to Health Maintenance Results * MG DIAG W YOSEPH LT DIGI (08/16/2024 10:55 AM CDT) Anatomical Region Laterality Modality Breast Left Mammography 08/16/2024 11:0 7 AM CDT Impressions 08/16/2024 11:08 AM CDT ===== IMPRESSION: ===== 1. No findings in the left breast to suggest malignancy Assessment: ACR BI-RADS 2 - BENIGN FINDING(S) Recommendation: 1:Routine Screening Bilateral Comments: Ordered By: HENRY VIVAS Interpreted By: Lowell Lara MD, 08/16/2024 11:07 AM Narrative 08/16/2024 11:[address] [facility] [address] [place] [address] Examination: Digital left diagnostic mammogram with 3-D tomography Exam Date/Time: 08/16/2024 10:41 AM Reason For Exam: abn nury Single view asymmetry in the left breast on screening exam with further evaluation recommended Comparison: Screening mammogram 08/04/2024 Technique: Digital diagnostic mammography of the left breast was performed in addition to 3-D Tomosynthesis technique. This study was read with the assistance of a computer-aided detection system. Tissue density: There are scattered areas of fibroglandular density. Findings:The previously seen asymmetry in the inferior mid depth tissue of the left breast on MLO view is evaluated with spot compression tomographic imaging. On today's study there is no persisting underlying asymmetry or mass lesion in the area. Remainder of visualized left breast parenchymal tissue shows no suspicious interval change. No new area of focal asymmetry, dominant mass lesion, area of skin thickening, or cluster of suspicious appearing calcifications in the breast to suggest malignancy. Henry Vivas ACCOUNT SUPPORT ANALYST MAMMO Final Result * MG SCREENING W YOSEPH CYNTHIA DIGI (08/04/2024 3:20 PM CHIEF MEDICAL TECHNOLOGIST) Anatomical Region Laterality Modality Breast Bilateral Mammography 08/04/2024 3:25 PM CHIEF MEDICAL TECHNOLOGIST Impressions 08/04/2024 3:27 PM CHIEF MEDICAL TECHNOLOGIST IMPRESSION: Left lower breast asymmetry, MLO view only. Recommendation: 1. Additional Imaging, Left Assessment: ACR BI-RADS 0 - INCOMPLETE: NEEDS ADDITIONAL IMAGING EVALUATION Ordered By: HENRY VIVAS Interpreted By: Jose Mandel, 08/04/2024 3:25 PM Narrative 08/04/2024 3:27 PM CHIEF MEDICAL TECHNOLOGIST [facility] Care [address] [facility] [place] [address] Examination: Screening bilateral mammogram Exam Date/Time: 08/04/2024 3:00 PM Clinical history: No current complaints. Comparison: 11/01/2021 Technique: Digital screening mammography of both breasts was performed. Breast tomosynthesis acquisitions were obtained and reviewed. This study was read with the assistance of a computer-aided detection system. Tissue density: There are scattered areas of fibroglandular density. Findings: Left lower breast asymmetry MLO view only. Right breast stable and benign. No suspicious microcalcification or architectural distortion. [facility] Final Result * VITAMIN B-12 (07/19/2024 1:22 PM CHIEF MEDICAL TECHNOLOGIST) VITAMIN B12 S/P/B 728 193 - 986 PG/ML 07/19/2024 7:59 PM CHIEF MEDICAL TECHNOLOGIST [facility] 07/19/2024 1:22 PM CHIEF MEDICAL TECHNOLOGIST Henry Vivas [facility] Final Result [facility] [address] [place] [address], * (ABNORMAL) COMPREHENSIVE METABOLIC PANEL (07/19/2024 1:22 PM CHIEF MEDICAL TECHNOLOGIST) SODIUM S/P/B 139 136 - 145 MMOL/L 07/19/2024 7:59 PM CHIEF MEDICAL TECHNOLOGIST [facility] POTASSIUM S/P/B 4.0 3.5 - 5.1 MMOL/L 07/19/2024 7:59 PM CHIEF MEDICAL TECHNOLOGIST [facility] CHLORIDE S/P/B 102 98 - 107 MMOL/L 07/19/2024 7:59 PM CHIEF MEDICAL TECHNOLOGIST [facility] CO2 27.7 21 - 32 MMOL/L 07/19/2024 7:59 PM CHIEF MEDICAL TECHNOLOGIST [facility] GLUCOSE 105(H) 70 - 99 MG/DL 07/19/2024 7:59 PM CHIEF MEDICAL TECHNOLOGIST [facility] BUN 16 7 - 18 MG/DL 07/19/2024 7:59 PM [facility] CREATININE S/P/B 0.98 0.55 - 1.02 MG/DL 07/19/2024 7:59 PM [facility] CALCIUM S/P/B 9.5 8.4 - 10.5 MG/DL 07/19/2024 7:59 PM [facility] BILIRUBIN TOTAL S/P/B 0.7 0.2 - 1.0 MG/DL 07/19/2024 7:59 PM [facility] ALKALINE PHOSPHATASE S/P/B 90 46 - 118 U/L 07/19/2024 7:59 PM [facility] AST 34 15 - 37 U/L 07/19/2024 7:59 PM [facility] ALT 66(H) 14 - 59 U/L 07/19/2024 7:59 PM [facility] TOTAL PROTEIN S/P/B 7.1 6.4 - 8.2 G/DL 07/19/2024 7:59 PM [facility] ALBUMIN S/P/B 3.8 3.4 - 5.0 G/DL 07/19/2024 7:59 PM [facility] ANION GAP 9.3 5 - 15 MMOL/L 07/19/2024 7:59 PM [facility] Comment:REFERENCE RANGE NOT ESTABLISHED OSMOLALITY (CALC) 290 MOSM/KG 025 7:59 PM [facility] Comment:REFERENCE RANGE NOT ESTABLISHED GFR ESTIMATE 67(L) >90 ML/MIN/1. 73 M2 07/19/2024 7:59 PM [facility] GFR NOTES GFR REFERENCE S: 07/19/2024 7:59 PM [facility] Comment: THE ESTIMATED GFR IS CALCULATED USING THE 2020 CKD-EPI EQUATION. THE FOLLOWING CATEGORIES FOR GRADING RENAL FUNCTION ARE RECOMMENDED BY THE INTERNATIONAL SOCIETY OF NEPHROLOGY (KDIGO 2012 CLINICAL PRACTICE GUIDELINE). G1,NORMAL OR HIGH: >89 ml/min/1.73 m2 G2,MILDLY DECREASED: 60-89 ml/min/1.73 m2 G3A,MILDLY TO MODERATELY DECREASED: 45-59 ml/min/1.73 m2 G3B,MODERATELY TO SEVERELY DECREASED: 30-44 ml/min/1.73 m2 G4,SEVERELY DECREASED: 15-29 ml/min/1.73 m2 G5,KIDNEY FAILURE: <15 ml/min/1.73 m2 07/19/2024 1:22 PM CHIEF MEDICAL TECHNOLOGIST Henry Vivas ACCOUNT SUPPORT ANALYST LABORATORY Final Result [facility] [address] [place] [address], * (ABNORMAL) LIPID PANEL (07/19/2024 1:22 PM CHIEF MEDICAL TECHNOLOGIST) CHOLESTEROL 238(H) <200 MG/DL 07/19/2024 7:59 PM CHIEF MEDICAL TECHNOLOGIST [facility] TRIGLYCERIDES 301(H) <150 MG/DL 07/19/2024 7:59 PM CHIEF MEDICAL TECHNOLOGIST [facility] HDL 47 >40 MG/DL 07/19/2024 7:59 PM CHIEF MEDICAL TECHNOLOGIST [facility] LDL-C 131(H) <100 MG/DL 07/19/2024 7:59 PM CHIEF MEDICAL TECHNOLOGIST [facility] VLDL CALCULATION 60(H) 5 - 28 MG/DL 07/19/2024 7:59 PM CHIEF MEDICAL TECHNOLOGIST [facility] CHOL/HDL RATIO 5.1(H) 0.0 - 4.0 07/19/2024 7:59 PM [facility] LDL/HDL 2.8(H) 0.41 - 2.13 07/19/2024 7:59 PM CHIEF MEDICAL TECHNOLOGIST [facility] NON HDL CHOLESTEROL 191(H) <140 MG/DL 07/19/2024 7:59 PM CHIEF MEDICAL TECHNOLOGIST [facility] 07/19/2024 1:22 PM CHIEF MEDICAL TECHNOLOGIST Henry Vivas [facility] Final Result Performing Organization Address [facility] de Phone Number [facility] [address] [place] [address], [place] [phone] * HEPATITIS C ANTIBODY ([facility] ONLY) (07/19/2024 1:22 PM CHIEF MEDICAL TECHNOLOGIST) Pathologist [facility] HEPATITIS C AB NON-REACTI VE NON-REACT STEPHEN 07/19/2024 9:58 PM CHIEF MEDICAL TECHNOLOGIST [facility] Comment: ANTIBODIES TO HCV NOT DETECTED. DOES NOT EXCLUDE THE POSSIBILITY OF EXPOSURE TO HCV. 07/19/2024 1:22 PM CHIEF MEDICAL TECHNOLOGIST Henry Vivas [facility] Final Result Performing Organization Address [facility] de Phone Number [facility] [address] [place] [address], [place] [phone] * FOLIC ACID SERUM (07/19/2024 1:22 PM CHIEF MEDICAL TECHNOLOGIST) [facility] FOLATE 15.7 8.6 - 58.9 NG/ML 07/20/2024 12:14 PM CHIEF MEDICAL TECHNOLOGIST [facility] 07/19/2024 1:22 PM CHIEF MEDICAL TECHNOLOGIST Henry Vivas [facility] Final Result Performing Organization Address [facility] de Phone Number [facility] [address] [place] [address], [place] [phone] * (ABNORMAL) CBC W/DIFF AUTOMATED (07/19/2024 1:22 PM CHIEF MEDICAL TECHNOLOGIST) [facility] WBC 10.59 4.00 - 10.80 x10'3/uL 07/19/2024 7:28 PM CHIEF MEDICAL TECHNOLOGIST [facility] RBC 4.49 4.10 - 5.40 x10'6/uL 07/19/2024 7:28 PM [facility] HGB 13.7 12.0 - 16.0 G/DL 07/19/2024 7:28 PM [facility] HCT 42.2 36.0 - 47.0 % 07/19/2024 7:28 PM [facility] MCV 94.0 78.0 - 100.0 FL 07/19/2024 7:28 PM [facility] MCH 30.5 27.0 - 31.0 PG 07/19/2024 7:28 PM [facility] MCHC 32.5(L) 33.0 - 36.0 G/DL 07/19/2024 7:28 PM [facility] RDW 13.1 11.5 - 14.5 % 07/19/2024 7:28 PM [facility] PLT 237 150 - 350 x10'3/uL 07/19/2024 7:28 PM [facility] MPV 11.3(H) 7.4 - 10.4 FL 07/19/2024 7:28 PM [facility] DIFFERENTIAL TYPE AUTOMATED DIFFERENTIAL 07/19/2024 7:28 PM [facility] NEUTROPHILS % 69.5 % 07/19/2024 7:28 PM [facility] LYMPHOCYTES % 20.8 % 07/19/2024 7:28 PM [facility] MONOCYTES % 5.6 % 07/19/2024 7:28 PM [facility] EOSINOPHILS % 3.4 % 07/19/2024 7:28 PM [facility] BASOPHILS % 0.6 % 07/19/2024 7:28 PM [facility] IMMATURE GRANS % 0.1 % 07/19/2024 7:28 PM [facility] ABS. NEUTROPHILS 7.37 1.60 - 8.30 x10'3/uL 07/19/2024 7:28 PM CHIEF MEDICAL TECHNOLOGIST [facility] ABS. LYMPHOCYTES 2.20 0.80 - 4.70 x10'3/uL 07/19/2024 7:28 PM CHIEF MEDICAL TECHNOLOGIST [facility] ABS. MONOCYTES 0.59 0.00 - 1.50 x10'3/uL 07/19/2024 7:28 PM CHIEF MEDICAL TECHNOLOGIST [facility] ABS. EOSINOPHILS 0.36 0.00 - 0.40 x10'3/uL 07/19/2024 7:28 PM CHIEF MEDICAL TECHNOLOGIST [facility] ABS. BASOPHILS 0.06 0.00 - 0.20 x10'3/uL 07/19/2024 7:28 PM CHIEF MEDICAL TECHNOLOGIST [facility] ABS. IMMATURE GRANULOCYTES 0.01 0.00 - 0.03 x10'3/uL 07/19/2024 7:28 PM CHIEF MEDICAL TECHNOLOGIST [facility] 07/19/2024 1:22 PM CHIEF MEDICAL TECHNOLOGIST Henry Vivas [facility] Final Result [address] [address], [place] [phone] * THYROXINE, FREE (FT4) (07/19/2024 1:22 PM CHIEF MEDICAL TECHNOLOGIST) [facility] FREE T4 0.85 0.76 - 1.46 NG/DL 07/19/2024 7:59 PM CHIEF MEDICAL TECHNOLOGIST [facility] 07/19/2024 1:22 PM CHIEF MEDICAL TECHNOLOGIST Henry Vivas [facility] Final Result [facility] [address] [place] [address], [place] [phone] * THYROID STIM HORMONE TSH (07/19/2024 1:22 PM CHIEF MEDICAL TECHNOLOGIST) [facility] TSH 2.962 0.358 - 3.740 uIU/ML 07/19/2024 7:59 PM CHIEF MEDICAL TECHNOLOGIST [facility] 07/19/2024 1:22 PM CHIEF MEDICAL TECHNOLOGIST Henry Jeterfelisa [facility] Final Result [facility] [address] [place] [address], [place] [phone] * VITAMIN D, 25 [place] (07/19/2024 1:22 PM CHIEF MEDICAL TECHNOLOGIST) [facility] VITAMIN D 25 HYDROXY TOTAL S/P/B 39.7 30 - 100 NG/ML 07/19/2024 7:59 PM CHIEF MEDICAL TECHNOLOGIST [facility] Comment: DEFICIENT <20 INSUFFICIENT 20-30 SUFFICIENT 30-100 07/19/2024 1:22 PM CHIEF MEDICAL TECHNOLOGIST Henrytimothy Jeterfelisa [facility] Final Result Performing Organization Address City/[facility]/ZIP Co de Phone Number [address] [address], [place] [phone] * MAGNESIUM (07/19/2024 1:22 PM CHIEF MEDICAL TECHNOLOGIST) [facility] MAGNESIUM 2.3 1.8 - 2.4 MG/DL 07/19/2024 7:59 PM CHIEF MEDICAL TECHNOLOGIST [facility] 07/19/2024 1:22 PM CHIEF MEDICAL TECHNOLOGIST Henry Jeterfelisa [facility] Final Result [facility] [address] [place] [address], [place] [phone] * URIC ACID BLOOD (07/19/2024 1:22 PM CHIEF MEDICAL TECHNOLOGIST) URIC ACID 5.8 2.6 - 6.0 MG/DL 07/19/2024 7:51 PM CHIEF MEDICAL TECHNOLOGIST [facility] 07/19/2024 1:22 PM CHIEF MEDICAL TECHNOLOGIST [facility] Final Result [facility] [place] [address] [facility] [place] [address], [place] [phone] * CT GENERIC (07/10/2024) Anatomical Region Laterality Modality Other 07/10/2024 [employer] Scanned SCANNING Final Resu lt * OUTSIDE LAB (SCAN ORDER) (07/10/2024) Only the most recent of6 resultswithin the time period is included. 07/10/2024 [employer] Scanned SCANNING Final Resu lt from Last 3 Months Insurance Care Teams Ship Wirer Relationship Specialty Start Date End Date Henry Vivas FNP [address] [place] [address] PCP - General NURSE PRACTITIONER 11/19/17
--- OUTSIDE RECORDS SUMMARY | 2024-09-05 20:10 | XMS_ITS | Clinical Summary ---
Author Organization [email or web address] Address [address] [facility] [place] [address] Care Team Providers Care Photoresist Contact Printer Name Role Phone Manish Sandy FITZPATRICK-ARIANA Primary Care Provider [phone] Source Comments [email or web address],non-owned Affiliates and Associated Physician Practices is amultiple site organization consisting of ambulatory clinics and hospital sitesin [place], [place], [place] and [place]. This disclosure is being madepursuant to the Care Everywhere program and may not contain all information available regarding this patient. Last updated 18.[email or web address] Allergies Active Allergy Reactions Criticality Noted Date [...] (09/03/2016): [facility] ICD - Unify Cailin [id number] SN: [id number] - Implanted 09/19/2014 by UNKNOWN RA: [facility] 1488 SN: [id number] (Implanted 12/30/2003) RV: [facility] 1581 SN: [id number] (Implanted 12/30/2003) LV: [facility] [id number] SN: [id number] (Implanted 08/29/[address] Queen) Resolved Problems [...] FLEX SIG - COLON CA SCREENING 1966 MAMMOGRAM 1966 PAP SMEAR 1966 HIV SCREENING 1981 HEPATITIS C SCREENING 11/03/1984 DTAP/TDAP/TD VACCINES (1 - Tdap) 1985 HEPATITIS B VACCINE (1 of 3 - 19+ 3-dose series) 1985 PNEUMOCOCCAL VACCINE (1 of 2 - PCV) 1985 PNEUMOCOCCAL VACCINE 50+ (1 of 1 - PCV) 2016 ZOSTER VACCINE (1 of 2) 2016 SCREENING FOR DIABETES 06/24/2020 06/24/2017, 2016 LIPID TESTING 10/03/2023 10/02/2018 COVID-19 VACCINE ( season) 2024 INFLUENZA VACCINE (#1) 2024 9, 08/25/2017, 06/30/2017, Additional history exists DEPRESSION SCREENING 06/09/2024 HIB VACCINE Aged Out No longer eligi ble based on patient's age to complete this topic HPV VACCINE Aged Out No longer eligi ble based on patient's age to complete this topic MENINGOCOCCAL (Group B) VACCINE SHARED DECISION-MAKING Aged Out No longer eligible based on patient's age to complete this topic MENINGOCOCCAL GROUPS A/C/Y/W VACCINE Aged Out No longer eligible based on patient's age to complete this topic Procedures Procedure Name Priority Date/Time Associated Diagnosis Comments BASIC METABOLIC PANEL (CALCIUM TOTAL) 06/24/2017 1:54 PM CLARK DRIVER from Last 3 Months or Most Recently Relevant to Health Maintenance Results * BASIC METABOLIC PANEL (CALCIUM TOTAL) (06/24/2017 1:54 PM CLARK DRIVER) Glucose 96 65 - 99 mg/dL [facility] Comment: Fasting reference interval BUN 19 7 - 25 mg/dL [facility] Creatinine 0.95 0.50 - 1.05 mg/dL [facility] Comment: For patients >49 years of age, the reference limit for Creatinine is approximately 13% higher for people identified as -Serbian. eGFR by MDRD 70 > OR = [...] 10.4 mg/dL [facility] Comment: Test Performed at: [facility] [address] [place] [address] ROGELIO LICONA DO,MPH 06/24/2017 1:54 PM CLARK DRIVER 06/24/2017 1:55 PM CLARK DRIVER Bucky Alexander MD LAB - CHEMISTRY BREANNA PAULA [facility] Organization Address City/State/ZIP Co de Phone Number [facility] [address] [place] [address] from Last 3 Months or Most Recently Relevant to Health Maintenance Care Teams Photoresist Contact Printer Relationship Specialty Start Date End Date Sandy Hammond APRN-HEAD OF DIGITAL ADVERTISING & INTEGRATION [address] [place] [address] PCP - General 11/20/21
--- OUTSIDE RECORDS SUMMARY | 2024-09-05 20:10 | XMS_ITS | Encounter Summary ---
Author Organization [facility] Address [address] [place] [address] Care Team Providers Care Marine Scientist Name Role Phone Sandy Hammond Primary Care Provider [phone] Encounter Details Date Type Department Care Team (Late st Contact Info) Description 05/29/2020 Quantapore Message Enc [facility] Family & Internal Medicine [facility] [address] [place] [phone] Sandy Hammond FNP [address] [place] [address] RE: Follow Up/Update Social History [...] this encounter Progress Notes * Silvestre Pisano, - 05/29/2020 4:10 PM CST Continue taking the medicine; the jaw dislocation doesn't sound related. Would monitor that. It's encouraging that pt is improving, but I can't say with 100% certainty that pt isn't still infectious.Would certainly recommend social distancing techniques as best as possible if she does see her. DECORATOR documented in this encounter Plan of Treatment Upcoming Encounters Date Type Department Care Team (Late st Contact Info) Description 11/19/2024 9:40 AM CDT Office Visit [facility] Multispecialty Care - [facility] [address] [facility], [address] [place] [address] Macario Han MD [address] [place] [address] documented as of this encounter Visit Diagnoses Not on filedocumented in this encounter Additional Health Concerns Infection Onset Date Last Indicated Resolved Time COVID-19 Rule Out 07/18/2020 07/18/2020 07/20/2020 7:00 AM HAND DECORATOR COVID-19 Rule Out 06/07/2021 06/07/2021 06/14/2021 12:32 AM HAND DECORATOR COVID-19 Rule Out 12/13/2021 12/13/2021 12/13/2021 4:48 PM CDT COVID-19 Rule Out 12/13/2021 12/13/2021 12/14/2021 4:35 PM CDT COVID-19 Rule Out 06/27/2022 06/27/2022 06/28/2022 1:09 PM HAND DECORATOR documented as of this encounter Care Teams Marine Scientist Relationship Specialty Start Date End Date Sandy Hammond FNP [address] [place] [address] PCP - General NURSE PRACTITIONER 11/19/17 documented as of this encounter
--- OUTSIDE RECORDS SUMMARY | 2024-09-05 20:10 | XMS_ITS | Encounter Summary ---
Author Organization [facility] Address [facility] [place] [address] Care Team Providers Care Certified Retinal Angiographer Name Role Phone aSndy Hammond Primary Care Provider [phone] Encounter Details Date Type Department Care Team (Late st Contact Info) Description 11/15/2021 TranscribeMe Message Enc [facility] Family & Internal Medicine [place] [phone] [place] [phone] Sandy Hammond FNP [address] [place] [address] BMP Results Social History Tobacco Use Types [...] [facility] - [facility] [address] [facility], [address] [place] [address] Macario Han MD [address] [place] [address] documented as of this encounter Visit Diagnoses Not on filedocumented in this encounter Additional Health Concerns Infection Onset Date Last Indicated Resolved Time COVID-19 Rule Out 12/13/2021 12/13/2021 12/13/2021 4:48 PM CDT COVID-19 Rule Out 12/13/2021 12/13/2021 12/14/2021 4:35 PM CDT COVID-19 Rule Out 06/27/2022 06/27/2022 06/28/2022 1:09 PM MOVIE SHOT CAMERA OPERATOR Assessment Noted Time PHQ-9 Depression Total Score: 6 10/13/19 22 11:56 AM CDT documented as of this encounter Care Teams Certified Retinal Angiographer Relationship Specialty Start Date End Date Sandy Hammond FNP [address] [place] [address] PCP - General NURSE PRACTITIONER 11/19/17 documented as of this encounter
--- OUTSIDE RECORDS SUMMARY | 2024-09-05 20:10 | XMS_ITS | Encounter Summary ---
Author Organization [facility] Address [address] [place] [address] Care Team Providers Care Theatre Director Name Role Phone Sandy Hammond Primary Care Provider Encounter Details Date Type Department Care Team (Late st Contact Info) Description 10/13/2019 WorkSimplet Message Enc [facility] Family & Internal Medicine [facility] [address] [place] [phone] Sandy Hammond FNP [address] [place] [address] RE: FW: Question Social History [...] Description 11/19/2024 9:40 AM CDT Office Visit [facility] Multispecialty Care - [facility] [address] [facility], [address] [place] [address] Macario Han MD [address] [place] [address] documented as of this encounter Visit Diagnoses Not on filedocumented in this encounter Additional Health Concerns Infection Onset Date Last Indicated Resolved Time COVID-19 Rule Out 01/11/2020 01/20/2020 03/20/2020 12:33 AM CDT COVID-19 Rule Out 05/08/2020 05/11/2020 05/19/2020 3:16 PM SECURITY SYSTEMS INSTALLER COVID-19 Rule Out 07/18/2020 07/18/2020 07/20/2020 7:00 AM SECURITY SYSTEMS INSTALLER COVID-19 Rule Out 06/07/2021 06/07/2021 06/14/2021 12:32 AM SECURITY SYSTEMS INSTALLER COVID-19 Rule Out 12/13/2021 12/13/2021 12/13/2021 4:48 PM CDT COVID-19 Rule Out 12/13/2021 12/13/2021 12/14/2021 4:35 PM CDT COVID-19 Rule Out 06/27/2022 06/27/2022 06/28/2022 1:09 PM SECURITY SYSTEMS INSTALLER documented as of this encounter Care Teams Theatre Director Relationship Specialty Start Date End Date Sandy Hammond FNP [address] [place], [place] [address] [place] [address] PCP - General NURSE PRACTITIONER 11/19/17 documented as of this encounter
--- OUTSIDE RECORDS SUMMARY | 2024-09-05 20:10 | XMS_ITS | Clinical Summary ---
Author Organization [facility] Address [address] [place] [address] Care Team Providers Care Clinical Nutritionist Name Role Phone Sandy Hammond NP Primary Care Provider [phone] Rashi MONACO MD, Joe Marks Unavailable [phone] Bucky Aelxander MD Unavailable [phone] Allergies Active Allergy Reactions Criticality Noted Date Comments Atorvastatin Unknown,Muscle pain Medium 03/25/2016 Penicillins Rash,Other (See comments),Anaphylaxi s High 03/25/2016 Reaction: Rash, , Reaction: Rash, Simvastatin Unknown,Muscle pain Medium 03/25/2016 Xapphbo-Gyz-Cmd Reductase Inhibitors Other (See comments) Reaction: Muscle [...] to Rashaun. Aware that I will call/send [facility] results letter once rec'd. If she's not [...] FNA cytology results PAF (paroxysmal atrial fibrillation) 08/08/2017 Chronic systolic CHF (congestive heart failure) 10/29/2016 Disorder of cardiac pacemaker electrode 07/31/19 17 Overview (09/12/2016): Pacemaker lead malfunction, initial encounter NICM (nonischemic cardiomyopathy) 04/26/2016 Overview (09/29/2020): Peripartum CM -- She had [...] (09/29/2020): Overview: [facility] [facility] ICD - Unify Assura [id number] SN: [id number] - Implanted 09/19/2014 by UNKNOWN RA: [facility] 1488 SN: [id number] (Implanted 12/30/2003) RV: [facility] 1581 SN: [id number] (Implanted 12/30/2003) LV: [facility] [id number] SN: [id number] (Implanted 08/29/[address] Queen) Implantable defibrillator reprogramming/check Overview (09/29/2020): [facility] [facility] ICD - Unify Assura [id number] SN: [id number] - Implanted 09/19/2014 by UNKNOWN RA: [facility] 1488 SN: [id number] (Implanted 12/30/2003) RV: [facility] 1581 SN: [id number] (Implanted 12/30/2003) LV: [facility] [id number] SN: [id number] (Implanted 08/29/[address] Queen) Ventricular tachycardia 03/25/2016 Surgical History Surgery Date Site/Laterality Comments TONSILLECTOMY Tonsillectomy OTHER SURGICAL HISTORY urethrotomy OTHER SURGICAL HISTORY AICD/Pacemaker OTHER SURGICAL HISTORY redo AICD '09, 15 OTHER SURGICAL HISTORY broken elbow: repair broken elbow IR FINE NEEDLE ASPIRATION W IMAGE GUIDANCE 12/22/2017 N/A Medical History Medical History Date Comments Asthma Asthma; Comments : [facility] 07/31/2016 - Gastroesophageal reflux disease GERD Disorder of thyroid Thyroid dise ase Hypercholesterolemia High choles terol; Comments: [facility] 07/31/2016 - Hx Other Medical post car diomyopathy; Comments: [facility] 07/31/2016 - Hx Other Medical broken elbow; C omments: [facility] 07/31/2016 - CHF (congestive heart failur e), NYHA class I, chronic, systolic (HCC) VT (ventricular tachycardia) (HCC) VF (ventricular fibrillation) (HCC) SVT (supraventricular tachycardia) s/p ablation Thyroid nodule Family History Medical [...] on file Legal Sex Female 4:23 AM MANAGER BENEFIT Gender Identity Not on file Sexual Orientation Not on file Obstetrics History Last Filed Vital Signs Vital Sign Reading Time Taken Comments Blood Pressure 92/80 01/26/2024 3:52 PM CDT Pulse 108 01/26/2024 3:52 PM CDT Temperature 36.2 C (97.1 F) 06/11/2021 4:15 PM MANAGER BENEFIT Respiratory Rate 16 01/26/2024 3:52 PM CDT [...] Pneumococcal vaccine <65 (2 of 2 - PPSV23) 07/15/2019 05/20/2019 Influenza Vaccine (#1) 2024 , 08/08/2022, 07/07/2021, Additional history exists Depression Screening 01/25/2025 01/26/2024, 12/31/2021, 01/01/2021, Additional history exists DTaP/Tdap/Td Vaccine (5 - Td or Tdap) 04/18/2033 04/18/2023, 08/15/2016, 09/25/2012, Additional history [place] [address] [place] [address] [facility] CLAIM[facility] CLAIMS [facility] Advance Directives For more information, please contact: [phone] * Full Code (Latest Code Status on File) Date Activated Date Inactivated Comments 08/18/2017 8:35 AM 08/20/2017 3:34 PM Care Teams Clinical Nutritionist Relationship Specialty Start Date End Date Sandy Hammond NP [address] [place] [address] PCP - General Nurse Practitioner 5/20/19 Joe Markham III, MD [address] [place] [address] Referring Physician Cardiology 09/29/20 Bucky Alexander MD [address] [place] [address] Bottom Stainer Electrophysiology 10/17/20
--- OUTSIDE RECORDS SUMMARY | 2024-09-05 20:10 | XMS_ITS | Referral Summary ---
Author Organization [facility] Address [address] [place] [address] Care Team Providers Care Audit Spec Name Role Phone Sandy Hammond NP Primary Care Provider [phone] Rashi MONACO MD, Joe Marks Unavailable [phone] Bucky Alexander MD Unavailable [phone] Allergies Active Allergy Reactions Criticality Noted Date Comments Atorvastatin Unknown,Muscle pain Medium 03/25/2016 Penicillins Rash,Other (See comments),Anaphylaxi s High 03/25/2016 Reaction: Rash, , Reaction: Rash, Simvastatin Unknown,Muscle pain Medium 03/25/2016 Dwabmsp-Ejz-Rtc Reductase Inhibitors Other (See comments) Reaction: Muscle [...] to Rashaun. Aware that I will call/send [facility] results letter once rec'd. If she's not [...] Overview: [facility] [facility] ICD - Unify Assura [id number] SN: [id number] - Implanted 09/19/2014 by UNKNOWN RA: [facility] 1488 SN: [id number] (Implanted 12/30/2003) RV: [facility] 1581 SN: [id number] (Implanted 12/30/2003) LV: [facility] [id number] SN: [id number] (Implanted 08/29/[address] Queen) Implantable defibrillator reprogramming/check Overview (09/29/2020): [employer] [facility] ICD - Unify Assura [id number] SN: [id number] - Implanted 09/19/2014 by UNKNOWN RA: [facility] 1488 SN: [id number] (Implanted 12/30/2003) RV: [facility] 1581 SN: [id number] (Implanted 12/30/2003) LV: [facility] [id number] SN: [id number] (Implanted 08/29/[address] Queen) Ventricular tachycardia [...] on file Legal Sex Female 4:23 AM HOUSEKEEPING AIDE Gender Identity Not on file Sexual Orientation Not on file Last Filed Vital Signs Vital Sign Reading Time Taken Comments Blood Pressure 92/80 01/26/2024 3:52 PM CDT Pulse 108 01/26/2024 3:52 PM CDT Temperature 36.2 C (97.1 F) 06/11/2021 4:15 PM HOUSEKEEPING AIDE Respiratory Rate 16 01/26/2024 3:52 PM CDT Oxygen Saturation 95% 12/16/2023 11:26 AM CDT Inhaled Oxygen Concentration - - Weight 86.6 kg (191 lb) 01/26/2024 3:52 PM CDT Height 157.5 cm (5' 2 ) 01/26/2024 3:52 PM CDT Body Mass Index 34.93 01/26/2024 3:52 PM CDT Plan of Treatment Not on file [place] [address] [place] [address] [facility] CLAIMS [facility] CLAIMS [facility] CLAIMS Advance Directives For more information, please contact: [phone] * Full Code (Latest Code Status on File) Date Activated Date Inactivated Comments 08/18/2017 8:35 AM 08/20/2017 3:34 PM Care Teams Audit Spec Relationship Specialty Start Date End Date Sandy Hammond NP [address] [place] [address] PCP - General Nurse Practitioner 10/26/18 Joe Markham III, MD [address] [place] [address] Referring Physician Cardiology 09/29/20 Bucky Alexander MD [address] [place] [address] Outside Sales Advertising Executive Electrophysiology 10/17/20
--- OUTSIDE RECORDS SUMMARY | 2024-09-05 20:10 | XMS_ITS | Clinical Summary ---
Author Organization [facility] Address [address], [facility] [address] [place] [address] Phone Care Team Providers Care Under Cutting Machine Operator Name Role Phone Sandy Hammond APRN, DRYING FRAME OPERATOR Primary Care Provider Jorge Ruano MD Unavailable [phone] Allergies Active Allergy Reactions Criticality Noted Date [...] 89 12/08/2023 1:05 PM CDT Temperature 36.6 C (97.8 F) 12/08/2023 1:05 PM CDT Respiratory Rate 18 12/08/2023 1:05 PM CDT [...] Comments Hepatitis C Virus (HCV) Screening 1966 Mammogram 1966 Hepatitis B Immunization (1 of 3 - 19+ 3-dose series) 1985 Pap Smear 11/09/1987 Cervical Cancer Screening (CCS) 1996 HPV/Cotest 1996 Cologuard 2016 Immunochemical Fecal Occult Blood 2016 Zoster Immunization (1 of 2) 2016 [...] to complete this topic Insurance Care Teams Under Cutting Machine Operator Relationship Specialty Start Date End Date Sandy Hammond, BOBBIN STRIPPER, DRYING FRAME OPERATOR [address] [place] [address] PCP - General Internal Medicine 09/03/23 Jorge Ruano MD [address] [place] [phone] Consulting Physician Oncology 09/03/23
[2024-09-05 20:16] LABS: Alanine Aminotransferase 45 U/L (6-35); Albumin Level 4.5 g/dL (3.5-5.1); Alkaline Phosphatase 81 U/L (38-126); Anion Gap 10 mmol/L (4-12); Aspartate Amino Transferase 31 U/L (14-36); Bilirubin,Total 0.8 mg/dL (0.2-1.3); Blood Urea Nitrogen 19 mg/dL (7-17); Calcium 10.2 mg/dL (8.4-10.2); Carbon Dioxide 27 mmol/L (22-30); Chloride 101 mmol/L (98-107); Estimated Glomerular Filt Rate 51; Glucose 109 mg/dL (65-110); Lipase 54 U/L (23-300); Potassium 4.4 mmol/L (3.4-5.0); Sodium 138 mmol/L (137-145)
[2024-09-05 20:22] LABS: Prothrombin Time 13.5 Seconds (11.1-14.7)
[2024-09-05 20:23] LABS: Partial Thromboplastin Time 25.8 Seconds (22.3-36.8)
[2024-09-05 20:28] LABS: Troponin I < 0.012 ng/mL (0.000-0.034)
[2024-09-05 21:20] VITALS: BP 107/69; PULSE 104; RESP 16; O2SAT 93
[2024-09-05 22:12] VITALS: BP 116/75; PULSE 108; RESP 18; O2SAT 97
[2024-09-05 22:14] LABS: Glucose Point of Care 123 mg/dl (65-105)
--- NOTE | 2024-09-05 22:15 | PC.NURSE ---
Osiel from Ct scan states we do not bed side preg for scan due to pt getting head CT and pt states she has been in menopause for awhile.
--- NOTE | 2024-09-05 22:16 | ED_ITS ---
HPI - General Adult General Chief complaint: Dizziness Stated complaint: hard time staying awake. Time Seen by Provider: 09/05/24 20:02 History of Present Illness HPI narrative: This is a 58-year-old female with history of cardiomyopathy with an EF of 20-25% presenting for a presyncopal episode and painless vision loss. Patient was sitting in the parking lot of a grocery store at 7:30 p.m. when she felt her vision go dark, felt like sound very far away and became confused. She could not figure out how to work her cellphone to call her family. This resolved in about 30 minutes. However she now has visual field deficits in left eye left upper quadrant. Patient denies any slurred speech, double vision, vertigo difficulty swallowing or weakness to any extremity. She did not have any chest pain or palpitations during this event. Related Data Home Medications ?Medication ?Instructions ?Recorded ?Confirmed ?Last Taken ?Type amitriptyline 100 mg tablet 100 mg PO HS 08/18/19 11/06/21 08/17/19 20:00 History aspirin 325 mg tablet 325 mg PO HS 08/18/19 11/14/21 11/12/21 History digoxin 125 mcg (0.125 mg) tablet 125 mcg PO DAILY 08/18/19 11/14/21 11/14/21 History dofetilide 125 mcg capsule 125 mcg PO Q12H 08/18/19 11/14/21 11/14/21 History furosemide 80 mg tablet 80 mg PO HS 08/18/19 11/06/21 Unknown History levothyroxine 50 mcg tablet 50 mcg PO DAILY 08/18/19 11/14/21 11/14/21 History lorazepam 1 mg tablet 1 mg PO Q8H PRN Anxiety 08/18/19 11/06/21 08/17/19 20:00 History omeprazole 40 mg capsule,delayed 40 mg PO HS 08/18/19 11/06/21 Unknown History release potassium chloride 10 mEq 10 meq PO HS 08/18/19 11/06/21 Unknown History tablet,extended release spironolactone 50 mg tablet 50 mg PO HS 08/18/19 11/06/21 Unknown History tramadol 37.5 mg-acetaminophen 325 1 tablet PO Q4H PRN Pain 08/18/19 11/06/21 Unknown History mg tablet zolpidem 5 mg tablet 5 mg PO HS PRN Sleep 08/18/19 11/06/21 Unknown History empagliflozin 10 mg tablet 1 tablet PO DAILY 11/06/21 11/06/21 Unknown History (Jardiance) levalbuterol tartrate 45 2 inh inhalation PRN PRN Shortness 11/06/21 11/06/21 Unknown History mcg/actuation aerosol inhaler Of Breath metoprolol succinate 50 mg 50 tablet PO HS 11/06/21 11/14/21 11/13/21 History tablet,extended release 24 hr sacubitril 24 mg-valsartan 26 mg 1 tablet PO BID 11/06/21 11/06/21 Unknown History tablet (Entresto) Allergies Allergy/AdvReac Type Severity Reaction Status Date / Time adhesive Allergy Unknown Redness of Verified 07/10/24 15:21 Skin mushroom Allergy Unknown Hives Verified 07/10/24 15:21 Penicillins Allergy Unknown Rash Verified 07/10/24 15:21 [facility] Past Medical History Medical History Obesity Asthma CHF (congestive heart failure) Cardiomyopathy Atrial fibrillation Pacemaker pm/aicd Thyroid nodule Hypothyroidism Migraines Anxiety SVT (supraventricular tachycardia) cardiomyopathy Surgical History Surgical History History of tonsillectomy History of thoracic surgery History of cardiac radiofrequency ablation Family History Family History Father Hypertension Cancer Heart disease Mother Hypertension Cancer Sibling Hypertension Social History Social History Social History: Patient is . She is a full code. She has never smoked. No alcohol use. 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 Gender identity (if verbalized by the patient): Female Spiritual care concerns: No Agree to blood products: Yes Exam 2 Narrative: APPEARANCE: No apparent distress. Head: atraumatic. EYES: EOMI, NOSE: Atraumatic NECK: Trachea midline RESPIRATORY: No increased rate of breathing CARDIOVASCULAR: RRR, ABDOMINAL: Non-distended MUSCULOSKELETAl: No obvious deformities NEURO: Alert. Cranial nerves 2-12 grossly intact. Sensation light touch, motor function cerebellar function intact for 4 extremities. Gait exam was unsteady SKIN:: Warm, dry. Normal color PSYCHIATRIC: Normal affect Eye exam left eye-visual field deficits in the left upper quadrant. 20/50 with glasses, IOP 17, fluorescein negative Right eye - No visual field deficits, 20 40 with glasses, IOP 17 Course Vital Signs Vital signs: Vital Signs Temperature 98.4 F 09/05/24 19:47 Pulse Rate 108 H 09/05/24 19:47 Respiratory Rate 16 09/05/24 19:47 Blood Pressure 118/72 09/05/24 19:47 Pulse Oximetry 97 09/05/24 19:47 Oxygen Delivery Room Air 09/05/24 19:47 Temperature 98.4 F 09/05/24 19:47 Pulse Rate 108 H 09/05/24 22:12 Respiratory Rate 18 09/05/24 22:12 Blood Pressure 116/75 09/05/24 22:12 Pulse Oximetry 97 09/05/24 22:12 Oxygen Delivery Room Air 09/05/24 19:47 Medical Decision Making MDM Narrative Medical decision making narrative: -Course: 58-year-old female presenting after a brief episode of confusion with painless vision loss in her left eye. She has loss of peripheral vision in the left upper quadrant of her left eye. Her neurologic exam is normal. CT brain and CTA were unremarkable. Patient will be transferred to [facility] to be evaluated by Ophthalmology. Patient accepted by Dr. Alejandre in the emergency department. This was discussed with the family they want to go by private vehicle. Risks and benefits were explained and they have accepted the risks. -DDX includes but is not limited to: CRAO, occipital/posterior stroke, complex migraine -Co-morbidities complicating care: cardiomyopathy, migraines Vital Signs Vital Signs: Vital Signs Temperature 98.4 F 09/05/24 19:47 Pulse Rate 108 H 09/05/24 19:47 Respiratory Rate 16 09/05/24 19:47 Blood Pressure 118/72 09/05/24 19:47 Pulse Oximetry 97 09/05/24 19:47 Oxygen Delivery Room Air 09/05/24 19:47 Temperature 98.4 F 09/05/24 19:47 Pulse Rate 108 H 09/05/24 22:12 Respiratory Rate 18 09/05/24 22:12 Blood Pressure 116/75 09/05/24 22:12 Pulse Oximetry 97 09/05/24 22:12 Oxygen Delivery Room Air 09/05/24 19:47 Lab Data 09/05/24 20:00 09/05/24 20:00 Labs: Lab Results 09/05/24 09/05/24 Range/Units 20:00 22:11 WBC 9.8 (4.5-10.0) K/mm3 RBC 4.36 (4.2-5.4) M/mm3 Hgb 13.7 (12.0-15.0) g/dL Hct 41.5 (37.0-47.0) % MCV 95.2 (80-100) fl MCH 31.4 (26-34) pg MCHC 33.0 (32-36) g/dl RDW 12.9 (11.5-14.5) % Plt Count 214 (150-375) k/mm3 MPV 11.3 H (7.4-10.4) fl Immature Gran % (Auto) 0.4 (0-0.5) % Neut % (Auto) 69.0 (45.5-73.1) % Lymph % (Auto) 21.2 (18.3-44.2) % [place] % (Auto) 6.3 (2.6-8.5) % Eos % (Auto) 2.5 (0-4.4) % Baso % (Auto) 0.6 (0.2-1.2) % Lymph # (Auto) 2.07 (0.9-3.2) K/mm3 [place] # (Auto) 0.6 (0.1-0.6) K/mm3 Eos # (Auto) 0.2 (0-0.3) K/mm3 Baso # (Auto) 0.1 (0.0-0.1) K/mm3 Abs Immat Gran (auto) 0.04 H (0.00-0.031) K/mm3 Absolute Neuts (auto) 6.7 (1.3-6.7) K/mm3 Absolute Nucleated RBC 0.000 (0.0-0.012) K/mm3 Nucleated RBC % 0.0 (0.0-0.2) % PT 13.5 (11.1-14.7) Seconds INR 1.0 APTT 25.8 (22.3-36.8) Seconds Sodium 138 (137-145) mmol/L Potassium 4.4 (3.4-5.0) mmol/L Chloride 101 (98-107) mmol/L Carbon Dioxide 27 (22-30) mmol/L Anion Gap 10 (4-12) mmol/L BUN 19 H (7-17) mg/dL Creatinine 1.10 H (0.7-1.0) mg/dL Estim Creat Clear Calc Not Reportable Estimated GFR 51 L (59 - ) Glucose 109 (65-110) mg/dL POC Capillary Glucose 123 H (65-105) mg/dl Calcium 10.2 (8.4-10.2) mg/dL Total Bilirubin 0.8 (0.2-1.3) mg/dL AST 31 (14-36) U/L ALT 45 H (6-35) U/L Alkaline Phosphatase 81 (38-126) U/L Troponin I < 0.012 (0.000-0.034) ng/mL Total Protein 8.0 (6.3-8.2) g/dL Albumin 4.5 (3.5-5.1) g/dL Lipase 54 (23-300) U/L Discharge Plan Discharge Clinical Impression: Visual field defect Patient Disposition: Acute Care Hospital Condition: Stable Additional Instructions: You were seen in the emergency department for vision loss. Please report directly to the [facility] emergency department to be evaluated by either Ophthalmology Service. Patient Language: Yemeni Prescriptions: No Action tramadol-acetaminophen 37.5-325 mg Tablet 1 tablet PO Q4H PRN (Reason: Pain) dofetilide 125 mcg Capsule 125 mcg PO Q12H potassium chloride 10 mEq Tablet Extended Release 10 meq PO HS omeprazole 40 mg Capsule,Delayed Release(Dr/Ec) 40 mg PO HS furosemide 80 mg Tablet 80 mg PO HS levothyroxine 50 mcg Tablet 50 mcg PO DAILY digoxin 125 mcg (0.125 mg) Tablet 125 mcg PO DAILY Rx Instructions: 2 tabs by mouth friday and friday and take 1 tab on all other days. zolpidem 5 mg Tablet 5 mg PO HS PRN (Reason: Sleep) lorazepam 1 mg Tablet 1 mg PO Q8H PRN (Reason: Anxiety) amitriptyline 100 mg Tablet 100 mg PO HS spironolactone 50 mg Tablet 50 mg PO HS aspirin 325 mg Tablet 325 mg PO HS metoprolol succinate 50 mg tablet extended release 24 hr 50 tablet PO HS Jardiance 10 mg tablet 1 tablet PO DAILY Entresto 24-26 mg tablet 1 tablet PO BID levalbuterol tartrate 45 mcg/actuation HFA aerosol inhaler 2 inh INHALATION PRN PRN (Reason: Shortness Of Breath) hydrocodone-acetaminophen 5-325 mg tablet 1 tablet PO Q6H PRN (Reason: pain) Qty: 20 0RF Follow-up/Referrals: ORTEGA,AMARI FIGUEROA [Primary Care Provider] -
[2024-09-05 23:20] VITALS: BP 107/67; PULSE 107; RESP 12; O2SAT 97
[2024-09-06] MEDS: LORazepam (*CRX) 1 MG TABLET PO (01:09)
[2024-09-06 01:15] VITALS: BP 110/67; PULSE 73; RESP 16; O2SAT 97
== END 2024-09-06 01:33 | disposition short-term general hospital (02) ==
PROVIDERS: Student in an Organized Health Care Education/Training Program; Emergency Provider Emergency Medicine; PCP Nurse Practitioner Family
DX: H53.8 Other visual disturbances (principal); I50.9 Heart failure, unspecified; I48.91 Unspecified atrial fibrillation; O90.3 Peripartum cardiomyopathy; J45.909 Unspecified asthma, uncomplicated; E03.9 Hypothyroidism, unspecified; E04.1 Nontoxic single thyroid nodule; E66.9 Obesity, unspecified; F41.9 Anxiety disorder, unspecified; Z95.810 Presence of automatic (implantable) cardiac defibrillator
CPT/HCPCS: 36415; 70450; 70496; 70498; 71046; 80053; 82948; 83690; 84484; 85025; 85610; 85730; 93005; 99285; A9270; Q9967

== ENCOUNTER 2025-02-20 18:18 | Emergency (ER) | payer OTHER, SELFPAY ==
--- OUTSIDE RECORDS SUMMARY | 2016-01-12 03:56 | XMS_ITS | Continuity of Care Document ---
Author Organization [facility] SPHARES Address [facility] [place] [address] Phone Care Team Providers Care Photographic Intelligence Officer Name Role Phone Lalo Ochoa MD Unavailable Unavailable Allergies, Adverse Reactions, Alerts Substance Reaction Status Criticality ATORVASTATIN CALCIUM Active No Info rmation Penicillins Active No Information Medications Medication Instructions Dosage Effective Dates (start - stop) Status Comments ATACAND 4 MG TABLET TAKE 1 TABLET ONCE DAILY. 4 MG - Active sotalol 80 mg tablet take 1 tablet by oral route 2 times every day 80 MG - Active AMBIEN (unknown strength) as needed Not Available - Active XOPENEX (unknown strength) as needed Not Available - Active VITAMIN D3 (unknown strength) take by oral route every week Not Available - Active omeprazole 40 mg capsule,delayed release take 1 capsule by oral route every day 40 MG - Active CRESTOR (unknown strength) take 1 tablet by oral route every day Not Available - Active aspirin 325 mg tablet take 1 tablet by oral route every day 325 MG - Active potassium chloride ER 10 mEq tablet,extended release take 1 tablet by oral route every day 10 MEQ - Active spironolactone 50 mg tablet take 1 tablet by oral route every day 50 MG - Active LASIX (unknown strength) take 80-120 mg by oral route every day Not Available - Active TOPROL XL (unknown strength) take 150 mg by oral route every day Not Available - Active levothyroxine 50 mcg tablet take 1 tablet by oral route every day 50 MCG - Active amitriptyline 100 mg tablet take 1 tablet by oral route every day 100 MG - Active ATACAND 4 MG TABLET TAKE 1 TABLET ONCE DAILY. 4 MG - No Longer Active Procedures Procedure Date REMOTE DATA ACQ/DISTR ICD REMOTE INTEROG ELECTROCARDIOGRAM, COMPLETE ICD OFFICE INTEROG ELECTROCARDIOGRAM, COMPLETE OFFICE/OUTPATIENT VISIT, EST ICD OFFICE INTEROG ICD REMOTE INTEROG REMOTE DATA ACQ/DISTR ICD REMOTE INTEROG REMOTE DATA ACQ/DISTR OFFICE/OUTPATIENT VISIT, EST ICD REPROGRAMMING DUAL OFFICE/OUTPATIENT VISIT, EST REMOVE & REPLACE CVD GEN MULT LEAD ELECTROPHYSIOLOGY EVALUATION OFFICE/OUTPATIENT VISIT, EST ICD REPROGRAMMING MULTIPLE CORONARY ANGIO W/LEFT HEART CATH 2014 OFFICE/OUTPATIENT VISIT, EST ICD REPROGRAMMING MULTIPLE OFFICE/OUTPATIENT VISIT, NEW CHEST X-RAY ELECTROCARDIOGRAM, COMPLETE Advance Directives Directive Yes / No Effective Date File Name No Information Encounters Encounter Description Practice Location Reason(s) For Visit Diagnoses Date Provider Providers Copied on Encounter [facility] , [facility], [address] [place] [address], [id number] , tel:[phone] [place] [facility] No Information 6 Gabriela May. [address] [place] [address], [id number] , [place]. tel:[phone] [facility], [address] [place] [address], [id number] , tel: [phone] [place] No Information 6 Gabriela May. [address] [place] [address], [id number] , . tel:[phone] [facility], [address] [place] [address], [id number] , tel:[phone] Main Office Encntr for adjust and mgmt of automatic implntbl card defibChronic systolic (congestive) heart failureOth complications of the puerperium, [facility] 6 Hardik Flores. [address] [place] [address], [id number] , [place]. tel:[phone] Referring Provider: Mark Tovar, [address] [place] [address], [id number] . tel:[phone] [facility], [address] [place] [address], [id number] , tel:[phone] Main Office EKG (chief complaint) Supraventricular tachycardiaUnspecifie d atrial flutter 6 Hardik Flores. [address] [place] [address], [address] [place] [address] , . [phone] Referring Provider: Mark Tovar, [address] [place] [address], [id number] . tel:[phone] [facility], [address] [place] [address], [id number] , [phone] Main Office Encntr for adjust and mgmt of automatic implntbl card defibOth complications of the puerperium, [facility] 6 Hardik Flores. [address] [place] [address], [id number] , [place]. [phone] Referring Provider: Mark Tovar, [address] [place] [address], [id number] . tel:[phone] OFFICE/OUTPA TIENT VISIT, EST [facility], [address] [place] [address], [id number] , tel:[phone] Main Office Follow up (chief complaint) Chronic systolic (congestive) heart failureVentricular fibrillationPresence of automatic (implantable) cardiac defibrillatorOther cardiomyopathiesSupra ventricular tachycardiaEssential (primary) hypertensionHyperlipi demia, unspecifiedHypothyroi dism, unspecifiedUnspecifie d atrial flutterObesity 6 Axel Gee. [address] [place] [address], [address] [place] [address] , . tel: [phone] Referring Provider: Mark Tovar, [address] [place] [address], [address] [place] [address] . tel:[phone] [facility], [address] [place] [address], [address] [place] [address] , tel: [phone] Main Office No Information 6 Hardik Flores. [address] [place] [address], [address] [place] [address] , . tel: [phone] [facility], [address] [place] [address], [address] [place] [address] , tel: [phone] Main Office Encntr for adjust and mgmt of automatic implntbl card defibChronic systolic (congestive) heart failurePalpitations 5 Hardik Flores. [address] [place] [address], [address] [place] [address] , . tel: [phone] Referring Provider: Mark Tovar, [address] [place] [address], [address] [place] [address] . tel:[phone] [facility], [address] [place] [address], [address] [place] [address] , tel: [phone] Main Office No Information 5 Hardik Flores. [address] [place] [address], [address] [place] [address] , . tel: [phone] Referring Provider: Mark Tovar, [address] [place] [address], [id number] . tel:[phone] [facility], [address] [place] [address], [address] [place] [address] , tel: [phone] Main Office No Information Hardik Flores. [address] [place] [address], [address] [place] [address] , [place]. tel: [phone] Referring Provider: Mark Tovar, [address] [place] [address], [address] [place] [address] . tel:[phone] OFFICE/OUTPA TIENT VISIT, [facility], [address] [place] [address], [address] [place] [address] , tel: [phone] [place] [facility] No Information 5 Gabriela May. [address] [place] [address], [address] [place] [address] , [place]. tel: [phone] Referring Provider: Lalo Alfredo, [address] [place] [address], [id number] . tel:[phone] [facility], [address] [place] [address], [address] [place] [address] , tel: [phone] Main Office No Information 5 Hardik Flores. [address] [place] [address], [address] [place] [address] , [place]. tel: [phone] Referring Provider: Mark Tovar, [address] [place] [address], [address] [place] [address] . tel:[phone] OFFICE/OUTPA TIENT VISIT, [facility], [address] [place] [address], [address] [place] [address] , tel: [phone] [facility] [facility] No Information 5 Edward Flores. [address] [place] [address], [address] [place] [address] , [place]. tel: [phone] Referring Provider: Mark Guzman, [address] [place] [address], [address] [place] [address] . tel:[phone] [facility], [address] [place] [address], [id number] , tel: [phone] [facility] No Information 5 Hardik Flores. [address] [place] [address], [id number] , [place]. tel: [phone] Referring Provider: Mark Tovar, [address] [place] [address], [address] [place] [address] . tel:[phone] OFFICE/OUTPA TIENT VISIT, [facility], [address] [place] [address], [id number] , [place] tel: [phone] Main Office No Information 5 Hardik Flores. [address] [place] [address], [id number] , [place]. tel: [phone] Referring Provider: Mark Tovar, [address] [place] [address], [address] [place] [address] . tel:[phone] [facility], [address] [place] [address], [id number] , tel: [phone] Main Office No Information Hardik Flores. [address] [place] [address], [address] [place] [address] , [place]. tel: [phone] Referring Provider: Mark Tovar, [address] [place] [address], [address] [place] [address] . tel:[phone] [facility], [address] [place] [address], [id number] , tel: [phone] [facility] No Information 5 Gabriela May. [address] [place] [address], [id number] , [place]. tel: [phone] Referring Provider: Lalo Alfredo, [address] [place] [address], [address] [place] [address] . tel:[phone] OFFICE/OUTPA TIENT VISIT, [facility], [address] [place] [address], [id number] , tel: [phone] Main Office No Information Hardik Flores. [address] [place] [address], [id number] , [place]. [phone] Referring Provider: Lalo Alfredo, [address] [place] [address], [id number] . tel:[phone] OFFICE/OUTPA TIENT VISIT, [facility] , [facility], [address] [place] [address], [id number] , [phone] [facility] No Information 5 Gabriela May. [address] [place] [address], [id number] , . [phone] Referring Provider: Lalo Alfredo, [address] [place] [address], [id number] . tel:[phone] Family History Family Member Type Diagnosis Age At Onset No Information Payers Payer name Insurance type Covered republican ID Authoriza tion(s) No Information Social History Type Description Quantity Date Captured Comments Sex Female Smoking Status No Information Chief Complaint And Reason For Visit No Information Reason For Referral Reason For Referral No Information History Of Present Illness Encounter Date Complaint History Of Prese nt Illness EKG Follow up This 49-year-old white female presents to the clinic today due to recent AICD shock.The patient sustained an episode of ventricular fibrillation occurring on July 02, 2015 at 9:03 AM. She received a 30 J shock which terminated the event. She had a recurrence of ventricular fibrillation 2 minutes later, at 9:05 AM. Again, she received a 30 J shock which restored sinus rhythm. The patient states that she was asleep when this episode occurred. She cannot recall any significant cardiac symptomatology in the day preceding this event. She is quite anxious over this episode, but has had no further difficulty. She denies chest pain, chest pressure, or chest tightness. She reports some mild dyspnea, but states that this has improved compared to her baseline. She denies palpitations, tachycardia, or bradycardia. She denies pedal edema.She is followed by Dr. Ochoa for general cardiac care. She states that she has actually felt as though her energy and strength have improved recently. She has a long-standing history of cardiomyopathy, dating back to 2001. Her most recent ejection fraction was assessed in September 2013, with echocardiogram measuring EF at 20%. She states that she tends to have dysrhythmias surrounding her menstrual cycle, and believes that as she is perimenopausal this may be playing a role currently. Functional Status Date Functional Assessmen t No Information Instructions Date Instruction Additional Infor mation No Information Assessments Type Assessment Date No Information Patient Care Teams Name Effective Dates (start - stop) Status Members No Information
--- OUTSIDE RECORDS SUMMARY | 2025-02-20 18:20 | XMS_ITS | Encounter Summary ---
Author Organization [facility] Address [facility] [place] [address] Care Team Providers Care Automatic Clipper Name Role Phone Sandy Hammond Primary Care Provider [phone] Encounter Details Date Type Department Care Team (Late st Contact Info) Description 06/18/2021 [facility] Message Enc [facility] Medical Group Family & Internal Medicine [id number] [place] [phone] Sandy Hammond FNP [address] [place] [address] Covid Headaches Social History Tobacco [...] Care Team (Late st Contact Info) Description 04/12/2025 1:40 PM JACQUARD FIXER Office Visit [facility] Medical Group Multispecialty Care - [facility] [place] [facility] [address] [facility], [address] [place] [address] Macario Han MD [address] [place] [address] documented as of this encounter Visit Diagnoses Not on filedocumented in this encounter Additional Health Concerns Infection Onset Date Last Indicated Resolved Time COVID-19 Rule Out 12/13/2021 12/13/2021 12/13/2021 4:48 PM CDT COVID-19 Rule Out 12/13/2021 12/13/2021 12/14/2021 4:35 PM CDT COVID-19 Rule Out 06/27/2022 06/27/2022 06/28/2022 1:09 PM JACQUARD FIXER Assessment Noted Time PHQ-9 Depression Total Score: 3 11/08/19 21 1:12 PM CDT documented as of this encounter Care Teams Automatic Clipper Relationship Specialty Start Date End Date Sandy Hammond FNP [address] [place] [address] PCP - General NURSE PRACTITIONER 11/19/17 documented as of this encounter
--- OUTSIDE RECORDS SUMMARY | 2025-02-20 18:20 | XMS_ITS | Encounter Summary ---
Author Organization [facility] Address [address] [place] [address] Care Team Providers Care Human Capital Manager Name Role Phone Sandy Hammond Primary Care Provider [phone] Encounter Details Date Type Department Care Team (Late st Contact Info) Description 10/13/2019 Tech[employer] Message Enc [facility] Medical Group Family & Internal Medicine [facility] [address] [place] [phone] Sandy Hammond FNP [address] [place] [address] RE: FW: Question Social History [...] Department Care Team (Late Contact Info) Description 04/12/2025 1:40 PM JACQUARD CARD CUTTER Office Visit [facility] Medical Group Multispecialty Care - [facility] [address] [facility], [address] [place] [address] Macario Han MD [address] [place] [address] documented as of this encounter Visit Diagnoses Not on filedocumented in this encounter Additional Health Concerns Infection Onset Date Last Indicated Resolved Time COVID-19 Rule Out 01/11/2020 01/20/2020 03/20/2020 12:33 AM CDT COVID-19 Rule Out 05/08/2020 05/11/2020 05/19/2020 3:16 PM JACQUARD CARD CUTTER COVID-19 Rule Out 07/18/2020 07/18/2020 07/20/2020 7:00 AM JACQUARD CARD CUTTER COVID-19 Rule Out 06/07/2021 06/07/2021 06/14/2021 12:32 AM JACQUARD CARD CUTTER COVID-19 Rule Out 12/13/2021 12/13/2021 12/13/2021 4:48 PM CDT COVID-19 Rule Out 12/13/2021 12/13/2021 12/14/2021 4:35 PM CDT COVID-19 Rule Out 06/27/2022 06/27/2022 06/28/2022 1:09 PM JACQUARD CARD CUTTER documented as of this encounter Care Teams Human Capital Manager Relationship Specialty Start Date End Date Sandy Hammond FNP [address] [place] [address] PCP - General NURSE PRACTITIONER 11/19/17 documented as of this encounter
--- OUTSIDE RECORDS SUMMARY | 2025-02-20 18:20 | XMS_ITS | Encounter Summary ---
Author Organization [facility] Address [address] [place] [address] Care Team Providers Care Cane Splicer Name Role Phone Sandy Hammond RANULFO Primary Care Provider [phone] Encounter Details Date Type Department Care Team (Late Contact Info) Description 12/29/2023 [email or web address] Message Enc [facility] Medical [facility] [id number] [place] [phone] Angel Luis, [facility] Provider 12/30/23 Appointment Social History [...] (Late Contact Info) Description 04/12/2025 1:40 PM PERSONNEL RECORDS CLERK Office Visit [facility] Medical [facility] Multispecialty Care - [facility] [address] [facility], [address] [place] [address] Macario Han MD [address] [place] [address] documented as of this encounter Visit Diagnoses Not on filedocumented in this encounter Additional Health Concerns Assessment Noted Time PHQ-9 Depression Total Score: 6 10/13/19 22 11:56 AM CDT documented as of this encounter Care Teams Cane Splicer Relationship Specialty Start Date End Date Sandy Hammond FNP [address] [place] [address] PCP - General NURSE PRACTITIONER 11/19/17 documented as of this encounter
--- OUTSIDE RECORDS SUMMARY | 2025-02-20 18:20 | XMS_ITS | Clinical Summary ---
Author Organization [facility] [employer] Address [address] [place] [address] Care Team Providers Care Gas Adjuster Name Role Phone Manish Sandy FITZPATRICK-ARIANA Primary Care Provider [phone] Source Comments [facility] [employer],non-owned Affiliates and Associated Physician Practices is amultiple site organization consisting of ambulatory clinics and hospital sitesin [place] and [place]. This disclosure is being madepursuant to the Care Everywhere program and may not contain all information available regarding this patient. Last updated 18.[facility] [employer] Allergies Active Allergy Reactions Criticality Noted Date Comments Carvedilol 01/23/2017 Sacubitril-Valsartan 01/23/2017 Weakness Atorvastatin Myalgias 03/25/2016 Penicillins Anaphylaxis High 03/25/2016 Simvastatin Myalgias 03/25/2016 Medications * Be aware that medications may not be up to date on this document. Alwaysverify current medications with the patient. zolpidem (AMBIEN) 5 MG tablet Take 5 [...] 03/25/2016 Overview (09/03/2016): [facility] ICD - [employer]on [id number] SN: [id number] - Implanted 09/19/2014 by UNKNOWN RA: [facility] [id number] SN: [id number] (Implanted 12/30/2003) RV: [facility] [id number] SN: [id number] (Implanted 12/30/2003) LV: [facility] [id number] SN: [id number] (Implanted 08/29/[address] Queen) Resolved Problems Problem Noted Date Diagnosed Date Resolved Date Dilated cardiomyopathy 12/03/201801/28 Family History Medical History Relation Name Comments Cardiomyopathy Father Relation Name Status Comments Father Social History Tobacco Use Types Packs/Day Years Used Date Smoking Tobacco: Never Smokeless Tobacco: Never Alcohol Use Standard Drinks/Week Comments Yes 0 (1 standard drink = 0.6 oz pur e alcohol) rare Comments No Sex and Gender Information Value Date Recorded Sex Assigned at Not on file Legal Sex Female 2:20 PM CDT Gender Identity Not on file [...] P M CDT Height 160 cm (5' 3) 02/22/2020 2:09 PM CDT Body Mass Index [...] - COLON CA SCREENING 1966 MAMMOGRAM 1966 HIV SCREENING 1981 HEPATITIS C SCREENING 11/03/1984 DTAP/TDAP/TD VACCINES (1 - Tdap) 1985 HEPATITIS B VACCINE (1 of 3 - 19+ 3-dose series) 1985 PNEUMOCOCCAL VACCINE 50+ (1 of 1 - PCV) 2016 ZOSTER VACCINE (1 of 2) 2016 SCREENING FOR DIABETES 06/24/2020 06/24/2017, 2016 LIPID TESTING 10/03/2023 10/02/2018 DEPRESSION SCREENING 06/09/2024 COVID-19 VACCINE ( season) 2025 INFLUENZA VACCINE (#1) 2025 9, 08/25/2017, 06/30/2017, Additional history exists HIB VACCINE Aged Out No longer eligi [...] METABOLIC PANEL (CALCIUM TOTAL) 06/24/2017 1:54 PM MULTISKILL OPERATOR from Last 3 Months or Most Recently Relevant to Health Maintenance Results * BASIC METABOLIC PANEL (CALCIUM TOTAL) (06/24/2017 1:54 PM MULTISKILL OPERATOR) Glucose 96 65 - 99 mg/dL [facility] Comment: Fasting reference interval BUN 19 7 - 25 mg/dL [facility] Creatinine 0.95 0.50 - 1.05 mg/dL [facility] Comment: For patients >49 years of age, the reference limit for Creatinine is approximately 13% higher for people identified as -Cuban. eGFR by MDRD 70 > OR = [...] 10.4 mg/dL [facility] Comment: Test Performed at: [facility] [address] [place] [address] ROGELIO LICONA DO,MPH 06/24/2017 1:54 PM MULTISKILL OPERATOR 06/24/2017 1:55 PM MULTISKILL OPERATOR Bucky Alexander MD LAB - CHEMISTRY ORDERABLES F inal Result [facility] [address] [place] [address] from Last 3 Months or Most Recently Relevant to Health Maintenance Insurance Care Teams Gas Adjuster Relationship Specialty Start Date End Date Sandy Hammond APRN-CNP [address] [place] [address] PCP - General 11/20/21
--- OUTSIDE RECORDS SUMMARY | 2025-02-20 18:20 | XMS_ITS | Encounter Summary ---
Author Organization [facility] Address [facility] [place] [address] Care Team Providers Care Clinical Nursing Assistant Name Role Phone Sandy Hammond Primary Care Provider [phone] Encounter Details Date Type Department Care Team (Late st Contact Info) Description 06/08/2021 Nicholas Haddox Records Message Enc [facility] Medical Group Family & Internal Medicine [address] [place] [phone] Sandy Hammond FNP [address] [place] [address] Covid test Social History Tobacco [...] st Contact Info) Description 04/12/2025 1:40 PM HARPSICHORD MAKER Office Visit [facility] Medical [facility] Multispecialty Care - [facility] [address] [facility], [address] [place] [address] Macario Han MD [address] [place] [address] documented as of this encounter Visit Diagnoses Not on filedocumented in this encounter Additional Health Concerns Infection Onset Date Last Indicated Resolved Time COVID-19 Rule Out 06/07/2021 06/07/2021 06/14/2021 12:32 AM HARPSICHORD MAKER COVID-19 Rule Out 12/13/2021 12/13/2021 12/13/2021 4:48 PM CDT COVID-19 Rule Out 12/13/2021 12/13/2021 12/14/2021 4:35 PM CDT COVID-19 Rule Out 06/27/2022 06/27/2022 06/28/2022 1:09 PM HARPSICHORD MAKER Assessment Noted Time PHQ-9 Depression Total Score: 3 11/08/19 21 1:12 PM CDT documented as of this encounter Care Teams Clinical Nursing Assistant Relationship Specialty Start Date End Date Sandy Hammond FNP [address] [place] [address] PCP - General NURSE PRACTITIONER 11/19/17 documented as of this encounter
--- OUTSIDE RECORDS SUMMARY | 2025-02-20 18:20 | XMS_ITS | Encounter Summary ---
Author Organization [facility] Address [address] [place] [address] Care Team Providers Care Director Instrumentation Name Role Phone Sandy Hammond Primary Care Provider [phone] Encounter Details Date Type Department Care Team (Late st Contact Info) Description 09/06/2021 Numerous Message Enc [facility] Family & Internal Medicine [address] [place] [phone] Sandy Hammond FNP [address] [place] [address] UTI symptoms Social History Tobacco [...] st Contact Info) Description 04/12/2025 1:40 PM SITE TECHNICIAN Office Visit [facility] Multispecialty Care - [facility] [address] [facility], [address] [place] [address] Macario Han MD [address] [place] [address] documented as of this encounter Visit Diagnoses Not on filedocumented in this encounter Additional Health Concerns Infection Onset Date Last Indicated Resolved Time COVID-19 Rule Out 12/13/2021 12/13/2021 12/13/2021 4:48 PM CDT COVID-19 Rule Out 12/13/2021 12/13/2021 12/14/2021 4:35 PM CDT COVID-19 Rule Out 06/27/2022 06/27/2022 06/28/2022 1:09 PM SITE TECHNICIAN Assessment Noted Time PHQ-9 Depression Total Score: 3 11/08/19 21 1:12 PM CDT documented as of this encounter Care Teams Director Instrumentation Relationship Specialty Start Date End Date Sandy Hammond FNP [address] [place] [address] PCP - General NURSE PRACTITIONER 11/19/17 documented as of this encounter
--- OUTSIDE RECORDS SUMMARY | 2025-02-20 18:20 | XMS_ITS | Clinical Summary ---
Author Organization [facility] Address [address] [place] [address] Care Team Providers Care Mat Linker Name Role Phone Sandy Hammond NP Primary Care Provider [phone] Rashi MONACO MD, Joseph Anthony Unavailable [phone] Bucky Alexander MD Unavailable [phone] Mark Champion MD Unavailable [phone] Allergies Active Allergy Reactions Criticality Noted Date Comments Adhesive Rash Medium 10/04/2024 Atorvastatin Unknown,Muscle pain Medium 03/25/2016 Empagliflozin Other (See comments) 10/04/2024 yeast infection Penicillins Rash,Other (See comments),Anaphylax is High 03/25/2016 Reaction: Rash, , Reaction: Rash, Semaglutide Stomach upset Low 10/04/2024 Simvastatin Unknown,Muscle pain Medium 03/25/2016 Zlqbpbv-Jaq-Qgl Reductase Inhibitors Other (See comments) Reaction: Muscle weak, ache, Medications LORazepam (ATIVAN) 1 mg tablet Take 1 tablet (1 mg total) by mouth 2 (two) times a day as needed for anxiety Active amitriptyline (ELAVIL) 100 mg tablet Take 1 tablet (100 mg total) by mouth nightly Active digoxin (LANOXIN) 125 mcg tablet Take 1 tablet (125 mcg total) by mouth daily Active levalbuterol (XOPENEX HFA) 45 mcg/actuation inhaler Inhale 1-2 puffs every 6 (six) hours as needed for wheezing Active omeprazole (PriLOSEC) 40 mg capsule Take 1 capsule (40 mg total) by mouth daily Active potassium chloride ER (KLOR-CON,K-DUR) 10 mEq CR tablet Take 1 tablet/capsule (10 mEq total) by mouth daily Active spironolactone (ALDACTONE) 50 mg tablet Take 1 tablet (50 mg total) by mouth daily Active traMADol-acetamino phen (ULTRACET) 37.5-325 mg per tablet TAKE 1 TABLET BY MOUTH EVERY 4 HOURS NEEDED FOR PAIN OR CHRONIC PAIN 08/02/19 21 Active cholecalciferol (VITAMIN D-3) 5,000 unit capsule Take 1 capsule (5,000 Units total) by mouth daily 01/26/20 20 Active metoprolol XL (TOPROL-XL) 50 mg extended release tablet Take 1 tablet (50 mg total) by mouth daily 30 tablet 11 09/03/19 23 Active sacubitriL-valsart an (Entresto) 24-26 mg tablet Take 1 tablet by mouth 2 (two) times a day 180 tablet 3 11/26/19 23 Active furosemide (LASIX) 40 mg tablet Take 2 tablets (80 mg total) by mouth daily 180 tablet 3 05/24/20 24 Active ezetimibe (ZETIA) 10 mg tablet Take 1 tablet (10 mg total) by mouth nightly 30 tablet 11 09/08/19 25 026 Active rosuvastatin (CRESTOR) 5 mg tablet Take 1 tablet (5 mg total) by mouth nightly 30 tablet 1 09/08/19 25 026 Active Additional Information Patient not taking.Reported on 01/20/2025 dofetilide (TIKOSYN) 125 mcg capsule Take 1 capsule (125 mcg total) by mouth 2 (two) times a day 09/08/19 25 Active buPROPion (WELLBUTRIN) 75 mg tablet Take 1 tablet (75 mg total) by mouth daily 11/04/[address] (CYMBALTA) 30 mg capsule 1 capsule (30 mg total) 04/01/20 24 Active ondansetron ODT (ZOFRAN-ODT) 4 mg disintegrating tablet Take 1 tablet (4 mg total) by mouth every 6 (six) hours as needed 11/04/19 25 Active Zepbound 2.5 mg/0.5 mL pen injector Inject 0.5 mL (2.5 mg total) under the skin once a week 11/04/19 25 Active zolpidem (AMBIEN) 10 mg tablet 11/29/19 25 Active apixaban (ELIQUIS) 5 mg tabletIndications: cardiomyopathy Take 1 tablet (5 mg total) by mouth 2 (two) times a day 60 tablet 11 12/22/19 25 Active dapagliflozin propanediol (FARXIGA) 10 mg tabletIndications: Heart Failure Take 1 tablet (10 mg total) by mouth daily 30 tablet 11 12/23/19 25 Active benzonatate (TESSALON) 200 mg capsuleIndications :Acute respiratory infection Take 1 capsule (200 mg total) by mouth 3 (three) times a day as needed for cough keep tessalon out of reach of children, especially children under the age of 10, due to possible serious risk such as if ingested by children under the age of 10. 30 capsule 01/13/20 25 Active levothyroxine (SYNTHROID) 50 mcg tabletIndications: Acquired hypothyroidism Take 1 tablet (50 mcg total) by mouth daily 90 tablet 3 01/24/20 25 026 Active levothyroxine (SYNTHROID) 50 mcg tabletIndications: Acquired hypothyroidism Take 1 tablet (50 mcg total) by mouth daily 90 tablet 3 01/26/20 24 025 Discontin ued(Reord er) Active Problems Problem Noted Date Diagnosed Date Visual disturbance 09/06/2024 COVID-19 06/08/2021 Acute cough 06/08/2021 Shortness of [...] to Rashaun. Aware that I will call/send health system results letter once rec'd. If she's not [...] Overview: [facility] ICD - Unify Assura [id number] SN: [id number] - Implanted 09/19/2014 by UNKNOWN RA: [facility] 1488 SN: [id number] (Implanted 12/30/2003) RV: [facility] [id number] SN: [id number] (Implanted 12/30/2003) LV: [facility] [id number] SN: [id number] (Implanted 08/29/[address] Queen) Implantable defibrillator reprogramming/check Overview (09/29/2020): [facility] ICD - Unify [employer]ura [id number] SN: [id number] - Implanted 09/19/2014 by UNKNOWN RA: [facility] 1488 SN: [id number] (Implanted 12/30/2003) RV: M [id number] SN: [id number] (Implanted 12/30/2003) LV: [facility] [id number] SN: [id number] (Implanted 08/29/[address] Queen) Ventricular tachycardia 03/25/2016 Encounters Date Type Department Care Team Description 01/20/2025 3:45 PM CDT Office Visit [facility] Specialists [address] [phone] Radha Blount MD Acquired hypothyroidism (Primary Dx); Multinodular goiter 01/12/2025 3:45 PM CDT Ancillary Procedure [facility] Imaging at [address] [phone] Cough, unspecified type 01/12/2025 3:45 PM CDT Office Visit [facility] Convenient Care at [address] [address] Isamar Solorio NP Exacerbation of asthma, unspecified asthma severity, unspecified whether persistent (Primary Dx); Acute cough; Acute respiratory infection 01/12/2025 Results Follow-Up [facility] Convenient Care at [address] [address] Isamar Solorio NP XR Chest PA Lateral 2 Views 12/22/2024 Orders Only [facility] Transplant Heart [address] [address] Mailstop [phone] [place] [address] Agnieszka Lynch RN 12/22/2024 Telephone [facility] Cardiology [address] [place] [address] Medicine 8th [place] [address] [place] [address] Mark Champion MD 12/21/2024 10:45 AM CDT Office Visit [facility] Cardiology [facility] 8th [place] [address] [place] [address] Mark Champion MD Chronic systolic CHF (congestive heart failure) (HCC) (Primary Dx); NICM (nonischemic cardiomyopathy) (HCC); CHF (congestive heart failure) (HCC); Ventricular tachycardia (HCC); PAF (paroxysmal atrial fibrillation) (HCC) from Last 3 Months Surgical History Surgery Date Site/Laterality Comments TONSILLECTOMY Tonsillectomy OTHER SURGICAL HISTORY urethrotomy OTHER SURGICAL HISTORY AICD/Pacemaker OTHER SURGICAL HISTORY redo AICD '09, 15 OTHER SURGICAL HISTORY broken elbow: repair broken elbow IR FINE NEEDLE ASPIRATION W IMAGE GUIDANCE 12/22/2017 N/A Medical History Medical History Date Comments Asthma Asthma; Comments : [facility] 07/31/2016 - Gastroesophageal reflux disease GERD Disorder of thyroid Thyroid dise ase Hypercholesterolemia High choles terol; Comments: [facility] 07/31/2016 - Hx Other Medical post car diomyopathy; Comments: [facility] 07/31/2016 - Hx Other Medical broken elbow; C omments: [facility] 07/31/2016 - CHF (congestive heart failur e), NYHA class I, chronic, systolic (HCC) VT (ventricular tachycardia) VF (ventricular fibrillation) SVT (supraventricular tachycardia) s/p ablation Thyroid nodule [...] Given: No Alcohol Use Standard Drinks/Week Comments No 0 (1 standard drink = 0.6 oz pur e alcohol) PHQ-2 Answer Date Recorded PHQ-2 Total Score (If total score is 3 or more points, staff should administer the PHQ-9) 0 09/07/2024 Personal Safety Answer Date Recorded Have you ever been in or are you currently in a harmful physical or emotional relationship or is someone making you feel afraid or unsafe? 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 Gender Identity Not on file Sexual Orientation Not on file Obstetrics History Last Filed Vital Signs Vital Sign Reading Time Taken Comments Blood Pressure 110/70 01/20/2025 3:30 PM CDT Pulse 89 01/20/2025 3:30 PM CDT Temperature 36.6 C (97.8 F) 01/12/2025 3:16 PM CDT Respiratory Rate 20 01/12/2025 3:16 PM CDT Oxygen Saturation 97% 01/12/2025 3:50 PM CDT Inhaled Oxygen Concentration - - Weight 87.6 kg (193 lb 3.2 oz) 01/20/2025 3:30 P M CDT Height 160 cm (5' 3) 01/20/2025 3:30 PM CDT Body Mass Index 34.22 01/20/2025 3:30 PM CDT Plan of Treatment Health Maintenance Due Date Last Done Comments Cervical Cancer Screening 1966 Colon Cancer Screening-Colonoscopy 1966 Hepatitis C Screening 1966 Hepatitis B Screening 1984 Regular Well Visit/Exam 18-64 1984 Zoster Vaccine (1 of 2) 2016 Pneumococcal vaccine <65 (2 of 2 - PPSV23, PCV20, or PCV21) 07/15/2019 05/20/2019 Influenza Vaccine (#1) 2025 5, 04/18/2023, 08/08/2022, Additional history exists Breast Cancer Screening-Mammogram 08/04/2025 025, 08/04/2024 Depression Screening 09/06/2025 09/06/2024, 01/26/2024, 12/31/2021, Additional history exists DTaP/Tdap/Td Vaccine (6 - Td or Tdap) 04/18/2033 04/18/2023, 08/15/2016, 08/15/2016, Additional history exists Procedures Procedure Name Priority Date/Time Associated Diagnosis Comments US THYROID Schedule Routine, Read Routine (OP Routine) 01/23/2025 5:56 PM CDT Multinodular goiter XR CHEST PA LATERAL 2 VIEWS Schedule CARLOS, Read CARLOS (Appt Today, Awaiting Results) 01/12/2025 3:52 PM CDT Cough, unspecified type POC INFLUENZA A/B, COVID-19 ANTIGEN Routine 01/12/2025 3:48 PM CDT Acute cough Acute respiratory infection POCT RAPID STREP Routine 01/12/2025 3:31 PM CDT Acute cough Acute respiratory infection from Last 3 Months Results * US Thyroid - Clinic Performed (01/23/2025 5:56 PM CDT) Anatomical Region Laterality Modality Head and Neck N/A Ultrasound Narrative 01/23/2025 5:56 PM CDT THYROID ULTRASOUND DATE: 01/20/2025 INDICATION: multinodular goiter HISTORY: 2.2 dominant left thyroid nodule s/p FNA - cytology benign PROCEDURE: Using physician performed real time ultrasonography limited to the thyroid gland, longitudinal and transverse images were obtained of both lobes and isthmus. COMPARISON STUDY: 01/26/2024 12/31/2021 01/01/2021 12/01/2017 FINDINGS The right thyroid lobe measures approx 4.0 X 1.37 X 1.94 cm. , heterogenous in echotexture The left thyroid lobe measures approx 4.19 X 2.25 X 2.14 cm. , heterogenous in echotexture Isthmus measures 0.31 cm With in left lobe there is a dominant complex /spongiform nodule that measures 3.32 X 2.07 X 2.18 cm grade 2 vascularity and no calcifications noted. stable There is one subcentimeter thyroid nodule in right lobe ( 0.92 X 0.45 X 0.93 cm ) IMPRESSION: multinodular goiter with dominant left thyroid nodule. us Supraja Melecio Majano MD IMG US PROCEDURES F inal Result * XR Chest PA Lateral 2 Views (01/12/2025 3:52 PM CDT) Anatomical Region Laterality Modality Body, Chest N/A Digital Radiogra phy 01/12/2025 4:46 PM CDT Narrative 01/12/2025 4:47 PM CDT EXAM DESCRIPTION: XR CHEST PA LATERAL 2 VIEWS REASON FOR STUDY: cough Pt complains of cough x 3 days. Pacemaker placed. Hx cardiomyopathy. No copd,cancer. Mild asthma. No smoking hx TECHNIQUE: There are 2 radiographic view(s) of the chest. COMPARISON: Prior exam 09/05/2024, 08/30/2016 FINDINGS: LUNGS: Pulmonary vascularity appears normal. No confluent infiltrate or effusion. Costophrenic angles are sharp. HEART/MEDIASTINUM: Mild cardiomegaly. Again seen is an AICD overlying the left chest with leads unchanged. LINES/TUBES: None. BONES: Mild spondylosis thoracic spine. No acute findings. IMPRESSION: Mild cardiomegaly with no acute pulmonary edema or infiltrate. THIS IS AN ELECTRONICALLY VERIFIED FINAL REPORT 01/12/2025 4:47 PM - Electronically signed by Hema GIBSON T: Report ID: [id number] Reading Location: [id number] Procedure Note Hema Mcneill MD - 01/12/2025 EXAM DESCRIPTION: XR CHEST PA LATERAL 2 VIEWS REASON FOR STUDY: cough Pt complains of cough x 3 days. Pacemaker placed. Hx cardiomyopathy. No copd,cancer. Mild asthma. No smoking hx TECHNIQUE: There are 2 radiographic view(s) of the chest. COMPARISON: Prior exam 09/05/2024, 08/30/2016 FINDINGS: LUNGS: Pulmonary vascularity appears normal. No confluent infiltrate or effusion. Costophrenic angles are sharp. HEART/MEDIASTINUM: Mild cardiomegaly. Again seen is an AICD overlyingthe left chest with leads unchanged. LINES/TUBES: None. BONES: Mild spondylosis thoracic spine. No acute findings. IMPRESSION: Mild cardiomegaly with no acute pulmonary edema orinfiltrate. THIS IS AN ELECTRONICALLY VERIFIED FINAL REPORT 01/12/2025 4:47 PM - Electronically signed by Hema GIBSON T: Report ID: [id number] Reading Location: [place] [address] Isamar Solorio TRACTOR EXPERT IMG XR PROCEDURES Final Result * POC Influenza A/B, COVID-19 antigen (01/12/2025 3:48 PM CDT) Influenza A Ag, POC Negative Negative [facility] Influenza B Ag, POC Negative Negative [facility] COVID-19 Ag POC Presumptive Negative Presumptive Negative, Invalid [facility] Nasal 01/12/2025 3:48 PM CDT Isamar Solorio NP POINT OF CARE TEST ORDERABLES F inal Result [facility] [address] * POCT rapid strep A (01/12/2025 3:31 PM CDT) Rapid Strep A, POC Negative Negative Swab 01/12/2025 3:31 PM CDT Isamar Solorio NP POINT OF CARE TEST ORDERABLES F inal Result from Last 3 Months Insurance [facility] CLAIMS [facility] CLAIMS [facility] CLAIMS Advance Directives For more information, please contact: [phone] * Full Code (Latest Code Status on File) Date Activated Date Inactivated Comments 09/06/2024 1:50 PM 09/07/2024 5:32 PM * Full Code Date Activated Date Inactivated Comments 08/18/2017 8:35 AM 08/20/2017 3:34 PM Care Teams Mat Linker Relationship Specialty Start Date End Date Sandy Hammond TRACTOR EXPERT [facility] [place] [address] PCP - General Nurse Practitioner 10/26/18 Joe Markham III, MD [address] [place] [address] Referring Physician Cardiology 09/29/20 Bucky Alexander MD [address] [place] [address] Vocational Nurse Lvn Electrophysiology 10/17/20 Mark Champion MD [address] [facility] [address] [place] [address] Transplant 09/10/24
--- OUTSIDE RECORDS SUMMARY | 2025-02-20 18:20 | XMS_ITS | Encounter Summary ---
Author Organization [facility] Address [address] [place] [address] Care Team Providers Care Ballistics Professor Name Role Phone Sandy Hammond Primary Care Provider Encounter Details Date Type Department Care Team (Late st Contact Info) Description 05/10/2020 TapRusht Message Enc [facility] Family & Internal Medicine [facility] [address] [place] [phone] Sandy Hammond FNP [address] [place] [address] RE: Referral Request Social History [...] st Contact Info) Description 04/12/2025 1:40 PM LEATHER SPONGER Office Visit [facility] Multispecialty Care - [facility] [address] [facility], [address] [place] [address] Macario Han MD 3 [place] [address] documented as of this encounter Visit Diagnoses Not on filedocumented in this encounter Additional Health Concerns Infection Onset Date Last Indicated Resolved Time COVID-19 Rule Out 05/08/2020 05/11/2020 05/19/2020 3:16 PM LEATHER SPONGER COVID-19 Rule Out 07/18/2020 07/18/2020 07/20/2020 7:00 AM LEATHER SPONGER COVID-19 Rule Out 06/07/2021 06/07/2021 06/14/2021 12:32 AM LEATHER SPONGER COVID-19 Rule Out 12/13/2021 12/13/2021 12/13/2021 4:48 PM CDT COVID-19 Rule Out 12/13/2021 12/13/2021 12/14/2021 4:35 PM CDT COVID-19 Rule Out 06/27/2022 06/27/2022 06/28/2022 1:09 PM LEATHER SPONGER documented as of this encounter Care Teams Ballistics Professor Relationship Specialty Start Date End Date Sandy Hammond FNP [address] [place] [address] PCP - General NURSE PRACTITIONER 11/19/17 documented as of this encounter
--- OUTSIDE RECORDS SUMMARY | 2025-02-20 18:20 | XMS_ITS | Encounter Summary ---
Author Organization [facility] Address [facility] [place] [address] Care Team Providers Care Cleaning Technician Name Role Phone Sandy Hammond Primary Care Provider [phone] Encounter Details Date Type Department Care Team (Late st Contact Info) Description 01/10/2020 Tacatìt Message Enc [facility] Medical Group Family & Internal Medicine [address] [place] [phone] Sandy aHmmond FNP [address] [place] [address] Medication Questions Social History Tobacco [...] st Contact Info) Description 04/12/2025 1:40 PM SUPERVISOR PLASMA Office Visit [facility] Group Multispecialty Care - [facility] 3 [facility], [address] [place] [address] Macario Han MD [address] [place] [address] documented as of this encounter Visit Diagnoses Not on filedocumented in this encounter Additional Health Concerns Infection Onset Date Last Indicated Resolved Time COVID-19 Rule Out 01/11/2020 01/20/2020 03/20/2020 12:33 AM CDT COVID-19 Rule Out 05/08/2020 05/11/2020 05/19/2020 3:16 PM SUPERVISOR PLASMA COVID-19 Rule Out 07/18/2020 07/18/2020 07/20/2020 7:00 AM SUPERVISOR PLASMA COVID-19 Rule Out 06/07/2021 06/07/2021 06/14/2021 12:32 AM SUPERVISOR PLASMA COVID-19 Rule Out 12/13/2021 12/13/2021 12/13/2021 4:48 PM CDT COVID-19 Rule Out 12/13/2021 12/13/2021 12/14/2021 4:35 PM CDT COVID-19 Rule Out 06/27/2022 06/27/2022 06/28/2022 1:09 PM SUPERVISOR PLASMA documented as of this encounter Care Teams Cleaning Technician Relationship Specialty Start Date End Date Sandy Hammond FNP [address] [place] [address] PCP - General NURSE PRACTITIONER 11/19/17 documented as of this encounter
--- OUTSIDE RECORDS SUMMARY | 2025-02-20 18:20 | XMS_ITS | Encounter Summary ---
Author Organization [facility] Address [facility] [place] [address] Care Team Providers Care Rn Labor Delivery Name Role Phone Sandy Hammond Primary Care Provider [phone] Encounter Details Date Type Department Care Team (Late st Contact Info) Description 11/15/2021 Mobyko Message Enc [facility] Medical Group Family & Internal Medicine [address] [place] [phone] Sandy Hammond FNP [address] [place] [address] BMP Results Social History Tobacco [...] Contact Info) Description 04/12/2025 1:40 PM SUPERVISOR MIRROR FABRICATION Office Visit [facility] Group Multispecialty Care - [facility] 3 [facility], [address] [place] [address] Macario Han MD [address] [place] [address] documented as of this encounter Visit Diagnoses Not on filedocumented in this encounter Additional Health Concerns Infection Onset Date Last Indicated Resolved Time COVID-19 Rule Out 12/13/2021 12/13/2021 12/13/2021 4:48 PM CDT COVID-19 Rule Out 12/13/2021 12/13/2021 12/14/2021 4:35 PM CDT COVID-19 Rule Out 06/27/2022 06/27/2022 06/28/2022 1:09 PM SUPERVISOR MIRROR FABRICATION Assessment Noted Time PHQ-9 Depression Total Score: 6 10/13/19 22 11:56 AM CDT documented as of this encounter Care Teams Rn Labor Delivery Relationship Specialty Start Date End Date Sandy Hammond FNP [address] [place] [address] PCP - General NURSE PRACTITIONER 11/19/17 documented as of this encounter
--- OUTSIDE RECORDS SUMMARY | 2025-02-20 18:20 | XMS_ITS | Clinical Summary ---
Author Organization [facility] Address [address], [facility] [address] [place] [address] Phone Care Team Providers Care Teenage Babysitter Name Role Phone Sandy Hammond APRN, SHIPPING AND RECEIVING SPECIALIST Primary Care Provider Jorge Ruano MD Unavailable [phone] Allergies Active Allergy Reactions Criticality Noted Date [...] 1:05 PM CDT Height 157.5 cm (5' 2) 12/08/2023 1:05 PM CDT Body Mass Index 35.1 12/08/2023 1:05 PM CDT Plan of Treatment Health Maintenance Due Date Last Done Comments Hepatitis C Virus (HCV) Screening 1966 Mammogram 1966 Hepatitis B Immunization (1 of 3 - 19+ 3-dose series) 1985 Pap Smear 11/09/1987 Cervical Cancer Screening (CCS) 1996 HPV/Cotest 1996 Cologuard 11/09/2011 Immunochemical Fecal Occult Blood 11/09/2011 Zoster Immunization (1 of 2) 2016 Pneumococcal Immunization (50+ years) (2 of 2 - PCV20 or PCV21) 05/20/2020 05/20/2019 Influenza Immunization (#1) 02/07/202504/09, 08/08/2022, 07/07/2021, Additional history exists SARS-COV-2 Immunization ( season) 2025 05/20/2023, 10/26/2021, 09/08/2020, Additional history exists Colonoscopy 01/21/2029 01/21/2019 Colorectal Cancer Screening 01/21/2029 Respiratory Syncytial Virus (RSV) Immunization (Adult) (1 - 1-dose 75+ series) 2041 Pneumococcal Immunization Combined Discontinued 05/20/2019 DTaP/Tdap/Td Immunization Discontinued 2022, 08/15/2016, 09/25/2012, Additional history exists TdaP Immunization Completed 04/18/2023, , 09/25/2012 Human Papillomavirus (HPV) Immunization Aged Out No longer eligible based on patient's age to complete this topic Meningococcal Immunization (ACWY) Aged Out No longer eligible based on patient's age to complete this topic Rotavirus Immunization Aged Out No lo nger eligible based on patient's age to complete this topic Insurance S Care Teams Teenage Babysitter Relationship Specialty Start Date End Date Sandy Hammond, ACCOUNTS PAYABLE ADMINISTRATOR, SHIPPING AND RECEIVING SPECIALIST [address] [place] [address] PCP - General Internal Medicine 09/03/23 Jorge Ruano MD [address] [place] [phone] Consulting Physician Oncology 09/03/23
--- OUTSIDE RECORDS SUMMARY | 2025-02-20 18:20 | XMS_ITS | Encounter Summary ---
Author Organization [facility] Address [facility] [place] [address] Care Team Providers Care Estate Administrator Name Role Phone Sandy Hammond Primary Care Provider [phone] Encounter Details Date Type Department Care Team (Late Contact Info) Description 06/08/2021 HW Message Enc [facility] Family & Internal Medicine [address] [place] [phone] Sandy Hammond FNP [address] [place] [address] Update Social History Tobacco Use [...] st Contact Info) Description 04/12/2025 1:40 PM TRAFFIC SIGN SUPERVISOR Office Visit [facility] Multispecialty Care - [facility] [address] [facility], [address] [place] [address] Macario Han MD [address] [place] [address] documented as of this encounter Visit Diagnoses Not on filedocumented in this encounter Additional Health Concerns Infection Onset Date Last Indicated Resolved Time COVID-19 Rule Out 06/07/2021 06/07/2021 06/14/2021 12:32 AM TRAFFIC SIGN SUPERVISOR COVID-19 Rule Out 12/13/2021 12/13/2021 12/13/2021 4:48 PM CDT COVID-19 Rule Out 12/13/2021 12/13/2021 12/14/2021 4:35 PM CDT COVID-19 Rule Out 06/27/2022 06/27/2022 06/28/2022 1:09 PM TRAFFIC SIGN SUPERVISOR Assessment Noted Time PHQ-9 Depression Total Score: 3 11/08/19 21 1:12 PM CDT documented as of this encounter Care Teams Estate Administrator Relationship Specialty Start Date End Date Sandy Hammond FNP [address] [place] [address] PCP - General NURSE PRACTITIONER 11/19/17 documented as of this encounter
--- OUTSIDE RECORDS SUMMARY | 2025-02-20 18:20 | XMS_ITS | Encounter Summary ---
Author Organization [facility] Address [address] [place] [address] Care Team Providers Care Industrial Technician Name Role Phone Sandy Hammond Primary Care Provider [phone] Encounter Details Date Type Department Care Team (Late st Contact Info) Description 08/02/2020 Qwbcgt Message Enc [facility] Medical Group Family & Internal Medicine [address] [place] [phone] Sandy Hammond FNP [address] [place] [address] RE: FW: Question Social History [...] (Late Contact Info) Description 04/12/2025 1:40 PM LEAD SOFTWARE TEST ENGINEER Office Visit [facility] Multispecialty Care - [facility] [address] [facility], [address] [place] [address] Macario Han MD [address] [place] [address] documented as of this encounter Visit Diagnoses Not on filedocumented in this encounter Additional Health Concerns Infection Onset Date Last Indicated Resolved Time COVID-19 Rule Out 06/07/2021 06/07/2021 06/14/2021 12:32 AM LEAD SOFTWARE TEST ENGINEER COVID-19 Rule Out 12/13/2021 12/13/2021 12/13/2021 4:48 PM CDT COVID-19 Rule Out 12/13/2021 12/13/2021 12/14/2021 4:35 PM CDT COVID-19 Rule Out 06/27/2022 06/27/2022 06/28/2022 1:09 PM LEAD SOFTWARE TEST ENGINEER documented as of this encounter Care Teams Industrial Technician Relationship Specialty Start Date End Date Sandy Hammond FNP [address] [place] [address] PCP - General NURSE PRACTITIONER 11/19/17 documented as of this encounter
--- OUTSIDE RECORDS SUMMARY | 2025-02-20 18:20 | XMS_ITS | Clinical Summary ---
Author Organization [facility] Address [facility] [place] [address] Care Team Providers Care Mining Plant Operator Name Role Phone Henry Hammond RANULFO Primary Care Provider [phone] Allergies Active Allergy Reactions Criticality Noted Date Comments Atorvastatin Myalgias 03/25/2016 Carvedilol Unknown 01/23/2017 Empagliflozin Other (see comment) 10/04/2024 yeast infection Penicillins Anaphylaxis,Unknown, R kayleigh High 03/25/2016 Sacubitril-Valsartan Unknown 01/23/2017 Weakness Semaglutide GI Upset Low 10/04/2024 Simvastatin Myalgias 03/25/2016 Statins Other (see comment) Reaction: Muscle weak, ache, Tape Rash Medium 10/04/2024 Medications DIGOX 125 MCG tablet TK 2 TS PO ON FRIDAY AND FRIDAY THEN TK 1 T ON ALL OTHER DAYS 3 019 Active Cholecalciferol (VITAMIN D) 125 MCG (5000 UT) CapIndications:Vi tamin D deficiency Take 1 capsule by mouth daily. 90 capsule 3 020 Active levothyroxine (SYNTHROID) 50 MCG tabletIndications :Acquired hypothyroidism Take 1 tablet (50 mcg total) by mouth every morning. 90 tablet 1 024 Active furosemide (LASIX) 40 MG tablet Take 2 tablets (80 mg total) by mouth daily. 024 Active dicyclomine (BENTYL) 10 MG capsuleIndication s:Irritable bowel syndrome, unspecified type TAKE 1 CAPSULE(10 MG) BY MOUTH FOUR TIMES DAILY BEFORE MEALS AND AT NIGHT 240 capsule 1 024 Active spironolactone (ALDACTONE) 50 MG tabletIndications :Chronic congestive heart failure, unspecified heart failure type ([facility] HHS/HCC) TAKE 1 TABLET(50 MG) BY MOUTH DAILY 90 tablet 3 025 Active amitriptyline (ELAVIL) 100 MG tabletIndications :Migraine without aura and without status migrainosus, not intractable TAKE 1 TABLET(100 MG) BY MOUTH DAILY 90 tablet 2 025 Active rosuvastatin (CRESTOR) 5 MG tablet Take 1 tablet (5 mg total) by mouth nightly at bedtime. 025 Active ezetimibe (ZETIA) 10 MG tablet Take 1 tablet (10 mg total) by mouth daily. 025 2025 Active dofetilide (TIKOSYN) 125 MCG Cap capsule Take 1 capsule (125 mcg total) by mouth 2 (two) times daily. 025 Active omeprazole (PRILOSEC) 40 MG capsuleIndication s:Gastroesophagea l reflux disease without esophagitis Take 1 capsule (40 mg total) by mouth 2 (two) times a day. 180 capsule 3 025 Active metoprolol succinate ER (TOPROL-XL) 50 MG 24 hr tabletIndications :Chronic congestive heart failure, unspecified heart failure type ([facility] HHS/HCC) TAKE 1 TABLET(50 MG) BY MOUTH DAILY 90 tablet 2 025 Active ondansetron (ZOFRAN-ODT) 4 MG disintegrating tabletIndications :Nausea Take 1 tablet (4 mg total) by mouth every 6 (six) hours as needed for Nausea. 30 tablet 025 Active sacubitril-valsar ford (ENTRESTO) 24-26 MG tabletIndications :Chronic systolic CHF (congestive heart failure) ([facility] HHS/HCC),NICM (nonischemic cardiomyopathy) ([facility] HHS/HCC) Take 0.5 tablets by mouth 2 (two) times daily. 90 tablet 3 025 Active zolpidem (AMBIEN) 10 MG tabletIndications :Primary insomnia Take 1 tablet (10 mg total) by mouth nightly as needed for Sleep. 90 tablet 1 025 Active levalbuterol (XOPENEX HFA) 45 MCG/ACT inhalerIndication s:Shortness of breath INHALE 1 PUFF INTO THE LUNGS EVERY 4 HOURS NEEDED FOR WHEEZING 45 g 025 Active buPROPion (WELLBUTRIN) 75 MG tabletIndications :Anxiety,Mild episode of recurrent major depressive disorder TAKE 1 TABLET(75 MG) BY MOUTH DAILY 30 tablet 1 025 Active traMADol-acetamin ophen (ULTRACET) 37.5-325 MG tabletIndications :Chronic bilateral low back pain without sciatica TAKE 1 TABLET BY MOUTH EVERY 4 HOURS NEEDED FOR CHRONIC PAIN OR PAIN 60 tablet 2 025 Active tirzepatide (ZEPBOUND) 5 MG/0.5ML injectionIndicati ons:Weight Loss Inject 5 mg into the skin once a week. Indications: Weight Loss 6 mL 025 Active LORazepam (ATIVAN) 1 MG tabletIndications :Anxiety TAKE 1 TABLET BY MOUTH EVERY 8 HOURS NEEDED 30 tablet 025 Active potassium chloride CR (K-TAB) 10 MEQ Tab CR tabletIndications :Muscle cramps TAKE 1 TABLET BY MOUTH EVERY DAY. PATIENT NEEDS APPOINTMENT 30 tablet 025 Active ELIQUIS 5 MG tablet Take 1 tablet (5 mg total) by mouth 2 (two) times daily. 025 Active dapagliflozin (FARXIGA) 10 MG tablet Take 1 tablet (10 mg total) by mouth daily. 025 Active aspirin 325 MG tablet Take 1 tablet (325 mg total) by mouth daily. 2024 Discontinued(P t. elected to discontinue med) furosemide 80 MG tablet Take 1 tablet (80 mg total) by mouth daily. 017 2024 Discontinued(D uplicate Med) FARXIGA 5 MG Tab Take 1 tablet by mouth daily. 022 2024 Discontinued tirzepatide (ZEPBOUND) 2.5 MG/0.5ML injectionIndicati ons:Weight Loss Inject 2.5 mg into the skin once a week. Indications: Weight Loss 2 mL 1 025 2024 Discontinued(D ose adjustment) LORazepam (ATIVAN) 1 MG tabletIndications :Anxiety TAKE 1 TABLET BY MOUTH EVERY 8 HOURS NEEDED 30 tablet 2 025 2024 Discontinued(R eorder) potassium chloride CR (K-TAB) 10 MEQ Tab CR tabletIndications :Muscle cramps TAKE 1 TABLET BY MOUTH EVERY DAY. PATIENT NEEDS APPOINTMENT 30 tablet 025 2024 Discontinued Active Problems Problem Noted Date Diagnosed Date Class 1 obesity due to exces s calories with serious comorbidity and body mass index (BMI) of 32.0 to 32.9 in adult 11/03/2024 Mild episode of recurrent major depressive disor teena 11/03/2024 TIA (transient ischemic attack) 10/04/2024 Elevated triglycerides with high cholesterol Cervical radiculopathy 08/09/2022 Bulge of cervical disc without myelopathy 2022 Gastroesophageal reflux dise ase, unspecified whether esophagitis present 12/19/2021 COVID-19 06/08/2021 Degenerative disc disease, lumbar 11/07/2020 Vaginal yeast infection 08/22/2020 Atrial tachycardia (HHS/HCC) 02/23/2020 Anxiety 01/26/2020 High risk medication use [...] months for a repeat thyroid ultrasound check Leg weakness 11/06/2017 Low back pain 11/06/2017 Numbness of upper extremity 11/06/2017 Peripheral neuropathy 11/06/2017 Hyperglycemia 10/01/2017 Weakness generalized 09/22/2017 Muscle cramps 09/22/2017 Migraine 09/18/2017 PAF (paroxysmal atrial fibrillation) ([facility] HH S/HCC) 08/08/2017 Insomnia 07/30/2017 Nausea 07/30/2017 NICM (nonischemic cardiomyopathy) ([facility] HHS/H CC) 04/11/2017 Overview (09/25/2018): Overview: Peripartum [...] TR, RVSP 30-35 mmHg DCM (dilated cardiomyopathy) ([facility]) 1 06/11/2016 Chronic systolic CHF (conges tive heart failure) ([facility]) 10/29/2016 Disorder of cardiac pacemaker electrode 07/31/19 17 Overview (09/25/2018): Overview: Pacemaker lead malfunction, initial encounter S/P catheter ablation of slow pathway 04/26/2016 Overview (09/25/2018): Overview: AVNRT ablation Implantable defibrillator reprogramming/check Overview (09/25/2018): Overview: [employer] [place] ICD - Unify Assura [id number] SN: [id number] - Implanted 09/19/2014 by UNKNOWN RA: [facility] 1488 SN: [id number] (Implanted 12/30/2003) RV: [place] 1581 SN: [id number] (Implanted 12/30/2003) LV: [facility] [id number] SN: [id number] (Implanted 08/29/[address] Queen) VT (ventricular tachycardia) ([facility]) 1 VF (ventricular fibrillation) ([facility]) 03/25/2016 Biventricular ICD (implantab le cardioverter-defibrillator) in place 03/25/2016 Overview (11/07/2020): [employer] [place] ICD - Unify Assura [id number] SN: [id number] - Implanted 09/19/2014 by UNKNOWN RA: SJM 1488 SN: [id number] (Implanted 12/30/2003) RV: SJM 1581 SN: [id number] (Implanted 12/30/2003) LV: [facility] [id number] SN: [id number] (Implanted 08/29/[address] Queen) Overview: [employer] ICD - Unify Assura [id number] SN: [id number] - Implanted 09/19/2014 by UNKNOWN RA: SJM 1488 SN: [id number] (Implanted 12/30/2003) RV: SJM 1581 SN: [id number] (Implanted 12/30/2003) LV: [id number] SN: [id number] (Implanted 08/29/[address] Queen) Resolved Problems Problem Noted Date Diagnosed Date Resolved Date Congestive heart failure ([facility]) 04/18/2023 10/04/2024 Chronic pain of left knee 11/07/2020 Dysuria 08/22/2020 04/18/2023 Exposure to COVID-19 virus 01/26/2020 0 02/18/2020 Stroke-like episode 08/26/2019 06/29/19 25 Need for prophylactic vaccin ation against Streptococcus pneumoniae (pneumococcus) 05/24/2019 02/18/2020 Acute non-recurrent frontal sinusitis 05/24/2019 04/18/2023 Closed displaced fracture of fifth metatarsal bone of left foot with routine healing, subsequent encounter 01/13/2019 06/29/2024 Groin rash 01/08/2019 06/29/2024 Thyromegaly 11/27/2017 10/04/2024 Chronic neck pain 11/06/2017 10/04/2024 Shakiness 09/22/2017 10/04/2024 Shortness of breath 07/30/2017 10/05/19 25 Encounters Date Type Department Care Team Description 02/08/2025 2:40 PM CDT Office Visit [facility] Medicine [address] [phone] Henry Hammond FNP Follow Up (Patient presenting to the office today for 3 month routine f/u- ); Weight Check (Recent Zepbound dose increase, tolerating well for the most part - has some diarrhea over the weekend starting to be better but not sure If it is due to Zepbound increase ) 02/08/2025 Travel 01/24/2025 Telephone [facility] Family & Internal Medicine [address] [phone] Henry Hammond FNP Record Request 11/24/2024 Orders Only [facility] Family Internal [address] [phone] Henry Hammond FNP 11/24/2024 MyChart Message Enc [facility] Internal [address] [phone] Henry Hammond, RANULFO Zolpidem from Last 3 Months Immunizations Immunization Administration Dates Next Due Dtap (Acel-Immune) 08/15/2016 Dtap (Generic) 09/25/2012 Flucelvax 6 Months+ (Prefilled [...] Disease Father Hypertension Father Heart Maternal Grandfather Breast Cancer Maternal Grandmother Cancer Maternal Grandmother breast Cancer Mother oral [...] Answer Date Recorded Patient Health Questionnaire-2 Score 2 11/03/2024 Comments No Sex and Gender Information Value Date Recorded Sex Assigned at Female 12/30/2023 1:13 PM CDT Legal Sex Female 1:59 PM CDT Gender Identity Female 12/30/2023 1:13 PM CDT Sexual Orientation Not on file Last Filed Vital Signs Vital Sign Reading Time Taken Comments Blood Pressure 104/64 02/08/2025 3:02 PM CDT Pulse 82 02/08/2025 3:02 PM CDT Temperature 36.2 C (97.2 F) 02/08/2025 3:02 PM CDT Respiratory Rate 16 02/08/2025 3:02 PM CDT Oxygen Saturation 97% 02/08/2025 3:02 PM CDT Inhaled Oxygen Concentration - - Weight 86.2 kg (190 lb 1.6 oz) 02/08/2025 3:02 P M CDT Height 162.6 cm (5' 4) 02/08/2025 3:02 PM CDT Body Mass Index 32.63 02/08/2025 3:02 PM CDT Plan of Treatment Upcoming Encounters Date Type Department Care Team (Late st Contact Info) Description 04/12/2025 1:40 PM PARADICHLOROBENZENE MACHINE OPERATOR Office Visit [facility] Medical Group Multispecialty Care - [address], [address] [place] [phone] Macario Han MD [address] [place] [address] Health Maintenance Due Date Last Done Comments Cervical Cancer Screening Pap Smear (Age 30 to 64) Every 3 Years 1966 Annual Physical 1969 Hepatitis B Vaccines (1 of 3 - 19+ 3-dose series) 1985 Cervical Cancer Screening Pap with HPV Testing (Age 30 to 64) Every 5 Years 1996 Zoster Vaccines (1 of 2) 2016 Pneumococcal Vaccine: 50+ Years (2 of 2 - PPSV23) 07/15/2019 05/20/2019 COVID-19 Vaccine (5 - 2024- season) 2025 05/20/2023, 10/26/2021, 09/08/2020, Additional history exists Cervical Cancer Screening with HPV 02/08/2026 Postponed from 1996 (Going to Outside Clinic) Mammogram Screening 08/16/2026 08/16/2024, 08/04/2024, 11/01/2021 Colorectal Cancer Screening Colonoscopy (10 Years) 01/21/2029 01/21/2019, 01/21/2019 DTaP, Tdap and Td Vaccines (7 - Td or Tdap) 04/18/2033 04/18/2023, 08/15/2016, 08/15/2016, Additional history exists Hepatitis C Completed 07/19/2024 PHQ-2 (Physician Lizella) Completed 11/03/2024 Meningococcal B Vaccine Aged Out No l onger eligible based on patient's age to complete this topic Meningococcal Vaccine Aged Out No khushi ani eligible based on patient's age to complete this topic RSV Immunizations Under 20 Months Aged Out No longer eligible based on patient's age to complete this topic Procedures Procedure Name Priority Date/Time Associated Diagnosis Comments MG/PCCL UDS W CONF Routine 02/08/2025 3: 07 PM CDT High risk medication use Anxiety Primary insomnia Degeneration of intervertebral disc of lumbar region with discogenic back pain Cervical radiculopathy MG DIAG W YOSEPH LT DIGI Routine 08/16/2024 10:55 AM CDT Abnormal mammogram HEPATITIS C ANTIBODY Routine 07/19/2024 1:22 PM PARADICHLOROBENZENE MACHINE OPERATOR Encounter for hepatitis C screening test for low risk patient COLONOSCOPY Routine 01/21/2019 11:42 AM CDT from Last 3 Months or Most Recently Relevant to Health Maintenance Results * (ABNORMAL) MG/PCCL UDS W CONF (02/08/2025 3:07 PM CDT) RESULT SUMMARY [facility] Comment: Prescribed Prescribed Not Prescribed Consistent Inconsistent Inconsistent Ativan(TM) Tramadol Prescribed no testing ordered: Ambien(TM) PRESCRIBED DRUG 1 (U) Ativan(TM) [facility] PRESCRIBED DRUG 2 (U) Ambien(TM) [facility] PRESCRIBED DRUG 3 (U) Tramadol [facility] FENTANYL SCREEN (U) NEGATIVE <0.5 ng/mL [facility] [place] 6 ACETYLMORPHINE (U) NEGATIVE <10 ng/mL [facility] [place] DESMETHYLTRAMADOL (U) 831(H) <100 ng/mL [facility] DESMETHYLTRAMADOL MEDMATCH (U) CONSISTENT [facility] [place] TRAMADOL (U) 1,093(H) <100 ng/mL [facility] [place] [facility] TRAMADOL (MEDMATCH) CONSISTENT [facility] TRAMADOL COMMENTS [facility] Comment:See Tramadol Notes, LDT Notes AMPHETAMINES PM NEGATIVE <500 ng/mL [facility] [place] [facility] BARBITURATES PM (U) NEGATIVE <300 ng/mL [facility] [place] [facility] BENZODIAZEPINES PM (U) POSITIVE(A) <100 ng/mL [facility] [place] [facility] ALPHAHYDROXYALPRAZOLAM PM (U) NEGATIVE <25 ng/mL [facility] [place] [facility] MIDAZOLAM PM (U) NEGATIVE <50 ng/mL [facility] [place] ALPHAHYDROXYTRIAZOLAM PM (U) NEGATIVE <50 ng/mL [facility] [place] AMINOCLONAZEPAM PM (U) NEGATIVE <25 ng/mL [facility] OH ET FLURAZEPAM PM (U) NEGATIVE <50 ng/mL [facility] LORAZEPAM PM (U) 343(H) <50 ng/mL [facility] [place] LORAZEPAM PM MEDMATCH (U) CONSISTENT [facility] [place] NORDIAZEPAM PM (U) NEGATIVE <50 ng/mL [facility] OXAZEPAM PM (U) NEGATIVE <50 ng/mL [facility] [place] [facility] TEMAZEPAM PM NEGATIVE <50 ng/mL [facility] [place] BENZODIAZEPINES COMMENTS [facility] Comment:See Benzodiazepines Notes, LDT Notes COCAINE METABOLITE PM (U) NEGATIVE <150 ng/mL [facility] MARIJUANA METABOLITE PM (U) NEGATIVE <20 ng/mL [facility] METHADONE PM (U) NEGATIVE <100 ng/mL [facility] OPIATES PM (U) NEGATIVE <100 ng/mL [facility] OXYCODONE PM (U) NEGATIVE <100 ng/mL [facility] CREATININE RANDOM (U) 39.9 > or = 20.0 mg/dL [facility] pH PM (U) 6.5 4.5 - 9.0 [facility] OXIDANT NEGATIVE <200 mcg/mL [facility] NOTE [facility] Comment: This drug testing is for medical treatment only. Analysis was performed as non-forensic testing and these results should be used only by healthcare providers to render diagnosis or treatment, or to monitor progress of medical conditions. Benzodiazepines Notes: Lorazepam detected is consistent with the use of the drug Lorazepam. Tramadol Notes: Tramadol, Desmethyltramadol detected is consistent with the use of the drug Tramadol. LDT Notes: Confirmation tests were developed and their analytical performance characteristics have been determined by [facility]. It has not been cleared or approved by the FDA. This assay has been validated pursuant to the CLIA regulations and is used for clinical purposes. medMATCH(R) enables providers to identify if drug use is consistent or inconsistent with a corresponding prescribed medication(s) list. Healthcare Providers needing Interpretation assistance, please contact us at [phone] ( ) M-F, 8am to 10pm EST URINE SPECIMEN / Unknown 02/08/2025 3:07 PM CDT 02/09/2025 12:03 AM CDT Narrative Resulting Agency Comment Performing Organization Information: Site ID: [id number] Name: [facility] Address: [address] [place] [address] Director: Kendrick Amezquita Site ID: [id number] Name: [facility] Address: [address] [place] [address] Director: Joseph Shi MD us Henry Kilzer GAUGE CONTROLLER URINE ORDERABLES Final Result [facility] - ANITA ORDERS [facility] [address] [facility] [place] [address], [facility] [place] [facility] [address] [place] [address] * MG DIAG W YOSEPH LT DIGI (08/16/2024 10:55 AM CDT) Anatomical Region Laterality Modality Breast Left Mammography 08/16/2024 11:0 7 AM CDT Impressions 08/16/2024 11:08 AM CDT ===== IMPRESSION: ===== 1. No findings in the left breast to suggest malignancy Assessment: ACR BI-RADS 2 - BENIGN FINDING(S) Recommendation: 1:Routine Screening Bilateral Comments: Ordered By: HENRY HAMMOND Interpreted By: Lowell Lara MD, 08/16/2024 11:07 AM Narrative 08/16/2024 11:08 AM CDT [facility] [address] [place] [address] Examination: Digital left diagnostic mammogram with 3-D [...] in the breast to suggest malignancy. Henry Hammond [facility] Final Result * HEPATITIS C ANTIBODY ([facility] ONLY) (07/19/2024 1:22 PM PARADICHLOROBENZENE MACHINE OPERATOR) HEPATITIS C AB NON-REACTI VE NON-REACT STEPHEN 07/19/2024 9:58 PM PARADICHLOROBENZENE MACHINE OPERATOR [facility] Comment: ANTIBODIES TO HCV NOT DETECTED. DOES NOT EXCLUDE THE POSSIBILITY OF EXPOSURE TO HCV. 07/19/2024 1:22 PM PARADICHLOROBENZENE MACHINE OPERATOR Henry Hammond [facility] Final Result [facility] [address] [place] [address], [id number] from Last 3 Months or Most Recently Relevant to Health Maintenance Insurance Care Teams Mining Plant Operator Relationship Specialty Start Date End Date Henry Hammond FNP [address] [place] [address] PCP - General NURSE PRACTITIONER 11/19/17
--- OUTSIDE RECORDS SUMMARY | 2025-02-20 18:20 | XMS_ITS | Encounter Summary ---
Author Organization [facility] Address [address] [place] [address] Phone Care Team Providers Care Freight And Passenger Agent Name Role Phone Sandy Hammond APRN, COUNTER HELPER Primary Care Provider Jorge Ruano MD Unavailable Encounter Details Date Type Department Care Team (Late st Contact Info) Description 03/15/2024 Telephone [facility] [address] [place] [address] Jorge Ruano MD [address] [place] [address] Social History Tobacco Use Types [...] encounter Miscellaneous Notes * Telephone Encounter - lEe [place] - 03/15/2024 3:20 PM CDT Patient missed appointment called left voicemail sent reminder letter. documented in this encounter Plan of Treatment Not on file documented as of this encounter Visit Diagnoses Not on filedocumented in this encounter Care Teams Freight And Passenger Agent Relationship Specialty Start Date End Date Sandy Hammond, AMARI, COUNTER HELPER [address] [place] [phone] PCP - General Internal Medicine 09/03/23 Jorge Ruano MD [address] [place] [phone] Consulting Physician Oncology 09/03/23 documented as of this encounter
--- OUTSIDE RECORDS SUMMARY | 2025-02-20 18:20 | XMS_ITS | Encounter Summary ---
Author Organization [facility] Address [address] [place] [address] Care Team Providers Care Laboratory Secretary Name Role Phone Sandy Hammond Primary Care Provider [phone] Encounter Details Date Type Department Care Team (Late st Contact Info) Description 05/29/2020 Yodlee Message Enc [facility] Medical Group Family & Internal Medicine [facility] [address] [place] [phone] Sandy Hammond FNP [address] [place] [address] RE: Follow Up/Update Social History [...] as possible if she does see her. ER MERCHANDISER documented in this encounter Plan of Treatment Upcoming Encounters Date Type Department Care Team (Late st Contact Info) Description 04/12/2025 1:40 PM DRIVER MERCHANDISER Office Visit [facility] Medical Group Multispecialty Care - [facility] [address] [facility], [address] [place] [address] Macario Han MD [address] [place] [address] documented as of this encounter Visit Diagnoses Not on filedocumented in this encounter Additional Health Concerns Infection Onset Date Last Indicated Resolved Time COVID-19 Rule Out 07/18/2020 07/18/2020 07/20/2020 7:00 AM DRIVER MERCHANDISER COVID-19 Rule Out 06/07/2021 06/07/2021 06/14/2021 12:32 AM DRIVER MERCHANDISER COVID-19 Rule Out 12/13/2021 12/13/2021 12/13/2021 4:48 PM CDT COVID-19 Rule Out 12/13/2021 12/13/2021 12/14/2021 4:35 PM CDT COVID-19 Rule Out 06/27/2022 06/27/2022 06/28/2022 1:09 PM DRIVER MERCHANDISER documented as of this encounter Care Teams Laboratory Secretary Relationship Specialty Start Date End Date Sandy Hammond FNP [address] [place] [address] PCP - General NURSE PRACTITIONER 11/19/17 documented as of this encounter
--- OUTSIDE RECORDS SUMMARY | 2025-02-20 18:21 | XMS_ITS | Encounter Summary ---
Author Organization [facility] Address [facility] [place] [address] Care Team Providers Care Solar Field Service Technician Name Role Phone Sandy Hammond Primary Care Provider [phone] Encounter Details Date Type Department Care Team (Late st Contact Info) Description 11/18/2024 Loca[employer] Message Enc [facility] Medical Group Family & Internal Medicine [place] [id number] [place] [phone] Sandy Hammond FNP [address] [place] [address] Welbutrin and Insomnia Social History Tobacco Use Types Packs/Day Years [...] st Contact Info) Description 04/12/2025 1:40 PM TOOL AND DIE REPAIR Office Visit [facility] Medical Group Multispecialty Care - [facility] [address] [facility], [address] [place] [address] Macario Han MD [address] [place] [address] documented as of this encounter Visit Diagnoses Not on filedocumented in this encounter Additional Health Concerns Assessment Noted Time PHQ-9 Depression Total Score: 6 11/04/19 25 10:16 AM CDT documented as of this encounter Care Teams Solar Field Service Technician Relationship Specialty Start Date End Date Sandy Hammond FNP [address] [place] [address] PCP - General NURSE PRACTITIONER 11/19/17 documented as of this encounter
--- OUTSIDE RECORDS SUMMARY | 2025-02-20 18:21 | XMS_ITS | Encounter Summary ---
Author Organization [facility] Healthcare Address [address] [place] [address] Care Team Providers Care Industrial Recruiter Name Role Phone Sandy Hammond NP Primary Care Provider [phone] Rashi MONACO MD, Joe Marks Unavailable + [phone] Bucky Alexander MD Unavailable [phone] Mark Champion MD Unavailable [phone] Encounter Details Date Type Department Care Team (Late st Contact Info) Description 01/12/2025 Results Follow-Up [facility] Medical Group Convenient Care at [address] [address] Isamar Solorio NP [address] [place] [address] [address] [place] [address] XR Chest PA Lateral 2 Views Social History Tobacco Use Types Packs/Day Years Used Date Smoking Tobacco: Never Smokeless Tobacco: Never Alcohol Use Standard Drinks/Week Comments No 0 [...] on file Legal Sex Female 4:23 AM VIDEO CONTROL ENGINEER Gender Identity Not on file Sexual Orientation Not on file documented as of this encounter Plan of Treatment Not on file documented as of this encounter Visit Diagnoses Not on filedocumented in this encounter Additional Health Concerns Infection Onset Date Last Indicated Resolved Time COVID: Suspected 01/12/2025 01/12/2025 01/12/2025 3:49 PM CDT documented as of this encounter Care Teams Industrial Recruiter Relationship Specialty Start Date End Date Sandy Hammond NP [address] [place] [address] PCP - General Nurse Practitioner 10/26/18 Joe Markham III, MD [address] [place] [address] Referring Physician Cardiology 09/29/20 Bucky Alexander MD [address] [place] [address] Child Care Associate Electrophysiology 10/17/20 Mark Champion MD [address] [facility] [address] [place] [address] Transplant 09/10/24 documented as of this encounter
--- OUTSIDE RECORDS SUMMARY | 2025-02-20 18:21 | XMS_ITS | Encounter Summary ---
Author Organization [facility] Address [address] [place] [address] Care Team Providers Care Executive Administrative Asst Name Role Phone Sandy Hammond Primary Care Provider [phone] Encounter Details Date Type Department Care Team (Late st Contact Info) Description 11/24/2024 [email or web address] Message Enc [facility] Medical Group Family & Internal Medicine [place] [address] [place] [phone] Sandy Hammond FNP [address] [place] [address] Zolpidem Social History Tobacco Use Types Packs/Day Years [...] Progress Notes * RANULFO De Anda - 11/24/2024 11:55 AM CDT Medication sent documented in this encounter Plan of Treatment Upcoming Encounters Date Type Department Care Team (Late st Contact Info) Description 04/12/2025 1:40 PM SAP BW DEVELOPER Office Visit [facility] Medical [facility] Multispecialty Care - [facility] [address] [facility], [address] [place] [address] Macario Han MD [address] [place] [address] documented as of this encounter Visit Diagnoses Not on filedocumented in this encounter Additional Health Concerns Assessment Noted Time PHQ-9 Depression Total Score: 6 11/04/19 25 10:16 AM CDT documented as of this encounter Care Teams Executive Administrative Asst Relationship Specialty Start Date End Date Sandy Hammond FNP [address] [place] [address] PCP - General NURSE PRACTITIONER 11/19/17 documented as of this encounter
[2025-02-20 18:32] VITALS: BP 97/51; PULSE 96; RESP 18; TEMP 37.1; O2SAT 98
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
== END 2025-02-20 20:16 | disposition left against medical advice (07) ==
PROVIDERS: PCP Nurse Practitioner Family
DX: R10.9 Unspecified abdominal pain (principal)
CPT/HCPCS: 99199